=== PATIENT | male | born 1975 | race Caucasian/White ===

== ENCOUNTER 2017-02-24 08:13 | Inpatient (IN) | payer OTHER ==
[2017-02-24 08:45] VITALS: BMI 30.4
--- NOTE | 2017-02-24 11:31 | HP ---
CIWA Score - CIWA Score Nausea/Vomitin Muscle Tremors: 4-Moderate,w/Arms Extend Anxiety: 4-Mod. Anxious/Guarded Agitation: 4-Moderately Restless Paroxysmal Sweats: 3 Orientation: 0-Oriented Tacttile Disturbances: 0-None Auditory Disturbances: 0-None Visual Disturbances: 0-None Headache: 0-None Present CIWA-Ar Total Score: 18 Admission ROS BHS - HPI Chief Complaint: Withdrawal sx. Allergies/Adverse Reactions: Allergies Allergy/AdvReac Type Severity Reaction Status Date / Time No Known Allergies Allergy Verified 02/24/17 10:04 History of Present Illness: 42 y/o man with a long hx. of alcoholism is admitted for detox. Pt. has been in previous detox, denies significant sobriety. Exam Limitations: No Limitations - Ebola screening Have you traveled outside of the country in the last 21 days: No Have you had contact with anyone from an Ebola affected area: No Have you been sick,other than usual withdrawal symptoms: No Do you have a fever: No - Review of Systems Constitutional: Diaphoresis EENT: reports: No Symptoms Reported Respiratory: reports: Cough (COPD) Cardiac: reports: No Symptoms Reported GI: reports: Nausea, Abdominal cramping : reports: No Symptoms Reported Musculoskeletal: reports: Joint Pain Integumentary: reports: Sweating Neuro: reports: Tremors Endocrine: reports: No Symptoms Reported Hematology: reports: No Symptoms Reported Psychiatric: reports: No Sypmtoms Reported Other Systems: Reviewed and Negative Patient History - Patient Medical History Hx Anemia: No Hx Asthma: No Hx Chronic Obstructive Pulmonary Disease (COPD): Yes Hx Cancer: No Hx Cardiac Disorders: No Hx Congestive Heart Failure: No Hx Hypertension: Yes (no meds.) Hx Hypercholesterolemia: No Hx Pacemaker: No HX Cerebrovascular Accident: No Hx Seizures: No Hx Dementia: No Hx Diabetes: No Hx Gastrointestinal Disorders: No Hx Liver Disease: No Hx Genitourinary Disorders: No Hx Sexually Transmitted Disorders: No Hx Renal Disease (ESRD): No Hx Thyroid Disease: No Hx Human Immunodeficiency Virus (HIV): No Hx Hepatitis C: No Hx Depression: Yes (no meds) Hx Suicide Attempt: No Hx Bipolar Disorder: No Hx Schizophrenia: No - Patient Surgical History Past Surgical History: Yes Hx Neurologic Surgery: No Hx Cataract Extraction: No Hx Cardiac Surgery: No Hx Lung Surgery: No Hx Breast Surgery: No Hx Breast Biopsy: No Hx Abdominal Surgery: No Hx Appendectomy: No Hx Cholecystectomy: No Hx Genitourinary Surgery: No Hx Section: No Hx Orthopedic Surgery: No Other Surgical History: dental surgery root canal Anesthesia Reaction: No - PPD History Previous Implant?: Yes Documented Results: Positive w/o proof Implanted On Prior [facility] Admission?: No PPD to be Administered?: No - Smoking Cessation Smoking history: Current every day smoker Have you smoked in the past 12 months: Yes Aproximately how many cigarettes per day: 20 Cigars Per Day: 0 Hx Chewing Tobacco Use: No Initiated information on smoking cessation: Yes 'Breaking Loose' booklet given: 02/24/17 - Substance & Tx. History Hx Alcohol Use: Yes Hx Substance Use: Yes Substance Use Type: Alcohol, Cocaine Hx Substance Use Treatment: Yes (Detox last at [facility] 02/2015) - Substances Abused Alcohol Route: Oral Frequency: Daily Amount used: 1/2 gallon vodka Age of first use: 8 Date of Last Use: 02/23/17 Cocaine Route: Inhalation Frequency: 3-6 times per week Amount used: 1 gram Age of first use: 26 Date of Last Use: 02/23/17 Marijuana/Hashish Route: Smoking Frequency: 1-3 times last 30 days Amount used: 1 joint Age of first use: 14 Date of Last Use: 02/22/17 Alprazolam (Xanax) Route: Oral Frequency: 1-3 times last 30 days Amount used: 2mg Age of first use: 36 Date of Last Use: 02/17/17 Family Disease History - Family Disease History Family Disease History: Other: Grandparent (CVA), Mother (alcoholic) Admission Physical Exam [facility] - Vital Signs Vital Signs: Vital Signs - 24 hr 02/24/17 08:43 Temperature 99.0 F Pulse Rate 90 Respiratory 18 Rate Blood Pressure 150/90 - Physical General Appearance: Yes: Tremorous, Irritable, Sweating, Anxious HEENTM: Yes: Within Normal Limits Respiratory: Yes: Chest Non-Tender, Lungs Clear, Normal Breath Sounds Neck: Yes: Supple Breast: Yes: Breast Exam Deferred Cardiology: Yes: Regular Rhythm, Regular Rate, S1, S2 Abdominal: Yes: Normal Bowel Sounds, Non Tender, Soft Genitourinary: Yes: Within Normal Limits Back: Yes: Within Normal Limits Musculoskeletal: Yes: Within Normal Limits Extremities: Yes: Tremors Neurological: Yes: Fully Oriented, Alert Integumentary: Yes: Diaphoresis Lymphatic: Yes: Within Normal Limits - Diagnostic (1) Alcohol dependence with uncomplicated withdrawal Current Visit: Yes Status: Acute (2) HTN (hypertension) Current Visit: Yes Status: Acute Qualifiers: Hypertension type: essential hypertension Qualified Code(s): I10 - Essential (primary) hypertension Cleared for Admission S - Detox or Rehab [facility] Level of Care: Medically Managed Detox Regimen/Protocol: Librium [facility] Breath Alcohol Content Breath Alcohol Content: 0 Urine Drug Screen - Results Drug Screen Negative: No Urine Drug Screen Results: THC-Marijuana, ALVAREZ-Cocaine
[2017-02-24] MEDS ORDERED: chlordiazePOXIDE HCL 25 MG CAPSULE PO PRN (11:38)
[2017-02-24] MEDS ORDERED: MAGNESIUM HYDROX 2400MG/30ML ORAL SUSPENSION 30 ML CUP PO PRN (11:38)
[2017-02-24] MEDS ORDERED: LOPERAMIDE HCL 2 MG CAPSULE PO PRN (11:38)
[2017-02-24] MEDS ORDERED: P-EPHED 60MG/TRIPROLIDI 2.5MG TABLET PO PRN (11:38)
[2017-02-24] MEDS ORDERED: hydrOXYzine PAMOATE 50 MG CAPSULE (FP) PO PRN (11:38)
[2017-02-24] MEDS ORDERED: MENTHOL/PHENOL 1 EACH UD MM PRN (11:38)
[2017-02-24] MEDS ORDERED: guaiFENesin/D-METHORPHAN HB 10 ML UNIT-DOSE CUPS PO PRN (11:38)
[2017-02-24] MEDS ORDERED: MAG HYDROX/AL HYDROX/SIMETH 30 ML UNIT-DOSE CUP PO PRN (11:38)
[2017-02-24] MEDS ORDERED: MAGNESIUM CITRATE 300 ML BOTTLE PO PRN (11:38)
[2017-02-24] MEDS ORDERED: ALBUTEROL SO4 6.7 GM HFA INHALER IH PRN (11:42)
[2017-02-24] MEDS ORDERED: chlordiazePOXIDE HCL 25 MG CAPSULE PO ONE (12:48)
[2017-02-24] MEDS: NICOTINE 21 MG/24 HOURS TOPICAL PATCH TD SCH (13:28)
[2017-02-24] MEDS: amLODIPine BESYLATE 10 MG TABLET (FP) PO SCH (13:28)
[2017-02-24] MEDS: ACETAMINOPHEN 325 MG TABLET (FP) PO PRN (13:28)
[2017-02-24] MEDS: ACLIDINIUM BROMIDE 400 MCG/INH AERO.POWD IH SCH ×2 (14:39→22:07)
[2017-02-24 16:55] LABS: URINE APPEARANCE TURBID; URINE BILIRUBIN NEGATIVE (NEGATIVE); URINE BLOOD NEGATIVE (NEGATIVE); URINE COLOR AMBER; URINE GLUCOSE (UA) NEGATIVE (NEGATIVE); URINE KETONE NEGATIVE (NEGATIVE); URINE LEUK ESTERASE NEGATIVE (NEGATIVE); URINE NITRITE NEGATIVE (NEGATIVE)
[2017-02-24 16:56] LABS: URINE PROTEIN 1+ (NEGATIVE)
[2017-02-24] MEDS: chlordiazePOXIDE HCL 25 MG CAPSULE PO SCH ×2 (18:50→22:07)
--- NOTE | 2017-02-24 19:13 | CONSULT ---
[facility] Psychiatric Consult - Data Date of interview: 02/24/17 Admission source: [facility] Identifying data: Readmission to [facility] for this [place]-born male seeking detox treatment on for alcohol,cocaine,xanax and marijuana dependence.Patient is ,a father of three,domiciled and employed. Substance Abuse History: Discussed with patient in this interview.[facility] report is confirmed. - Smoking Cessation. Smoking history: Current every day smoker. Have you smoked in the past 12 months: Yes. Aproximately how many cigarettes per day: 20. Cigars Per Day: 0. Hx Chewing Tobacco Use: No. Initiated information on smoking cessation: Yes. 'Breaking Loose' booklet given: . - Substance & Tx. History. Hx Alcohol Use: Yes. Hx Substance Use: Yes. Substance Use Type: Alcohol, Cocaine. Hx Substance Use Treatment: Yes (Detox last at [facility] 02/2015). - Substances Abused. Alcohol. Route: Oral. Frequency: Daily. Amount used: 1/2 gallon vodka. Age of first use: 8. Date of Last Use: 02/23/17. Cocaine. Route: Inhalation. Frequency: 3-6 times per week. Amount used: 1 gram. Age of first use: 26. Date of Last Use: . Marijuana/Hashish. Route: Smoking. Frequency: 1-3 times last 30 days. Amount used: 1 joint. Age of first use: 14. Date of Last Use: 02/22/17. Alprazolam (Xanax). Route: Oral. Frequency: 1-3 times last 30 days. Amount used: 2mg. Age of first use: 36. Date of Last Use: 02/17/17 Medical History: COPD and hypertension. Psychiatric History: No reported history of psychiatric illness.Patient denies history of psychiatric hospitalizations or OPD care.Mr Nino was prescribed seroquel in the past only to address chronic insomnia.No history of suicide attempts. Physical/Sexual Abuse/Trauma History: Patient denies. Additional Comment: Urine Drug Screen Results: THC-Marijuana, ALVAREZ-Cocaine.Noted. Mental Status Exam - Mental Status Exam Alert and Oriented to: Time, Place, Person Cognitive Function: Good Patient Appearance: Well Groomed (tattoo on right arm) Mood: Hopeful, Euthymic Affect: Appropriate, Normal Range Patient Behavior: Fatigued, Appropriate, Cooperative Speech Pattern: Clear (fluent in greenlandic) Voice Loudness: Normal Thought Process: Intact, Goal Oriented Thought Disorder: Not Present Hallucinations: Denies Suicidal Ideation: Denies Homicidal Ideation: Denies Insight/Judgement: Poor Sleep: Poorly, Difficulty falling asleep Appetite: Good Muscle strength/Tone: Normal Gait/Station: Normal Psychiatric Findings - Problem List ([place] 1, 2,3) (1) Alcohol dependence with uncomplicated withdrawal Current Visit: Yes Status: Acute (2) Cannabis dependence Current Visit: Yes Status: Acute (3) Nicotine dependence Current Visit: Yes Status: Acute (4) Cocaine dependence Current Visit: Yes Status: Acute (5) HTN (hypertension) Current Visit: Yes Status: Chronic Qualifiers: Hypertension type: essential hypertension Qualified Code(s): I10 - Essential (primary) hypertension (6) Insomnia Current Visit: Yes Status: Acute - Initial Treatment Plan Initial Treatment Plan: Psychoeducation.Detoxification.Seroquel 100 mg po hs ( patient's request).Side effects/benefits discussed with patient.Observation.
[2017-02-24 20:05] LABS: URINE MUCUS RARE; URINE RBC 2 /hpf (0-3)
[2017-02-24] MEDS: THIAMINE HCL 100 MG TABLET (FP) PO SCH (22:07)
[2017-02-24] MEDS: diphenhydrAMINE HCL 50 MG CAPSULE PO PRN (22:08)
[2017-02-25] MEDS: chlordiazePOXIDE HCL 25 MG CAPSULE PO SCH ×4 (05:57→22:20)
[2017-02-25] MEDS: IBUPROFEN 400 MG TABLET (FP) PO PRN ×2 (05:59→22:23)
[2017-02-25 09:07] LABS: HIV 1 & 2 AB NEGATIVE; HIV 1 AGp24 NEGATIVE
[2017-02-25 11:04] LABS: MCH 30.7 pg (25.7-33.7); MEAN CELL VOLUME 90.4 fl (80-96); MEAN PLT VOLUME 10.5 fl (7.5-11.1); PLATELET COUNT 338 K/MM3 (134-434); RDW 13.9 % (11.9-15.9); WHITE BLOOD COUNT 8.6 K/mm3 (4.0-10.0)
[2017-02-25] MEDS: NICOTINE 21 MG/24 HOURS TOPICAL PATCH TD SCH (11:16)
[2017-02-25] MEDS: PRENATAL VITAMINS W/ FOLIC ACID TABLET (FP) PO SCH (11:16)
[2017-02-25] MEDS: amLODIPine BESYLATE 10 MG TABLET (FP) PO SCH (11:16)
[2017-02-25] MEDS: ACLIDINIUM BROMIDE 400 MCG/INH AERO.POWD IH SCH ×2 (11:16→22:21)
[2017-02-25 11:25] LABS: ALBUMIN 4.5 g/dl (3.4-5.0); ALK PHOS 105 U/L (45-117); ANION GAP 11 (8-16); BILIRUBIN,TOTAL 1.6 mg/dL (0.2-1.0); CO2 24 mmol/L (21-32); GLUCOSE,RANDOM 109 mg/dL (74-106); SGOT/AST 105 U/L (15-37); SGPT/ALT 65 U/L (12-78)
--- NOTE | 2017-02-25 18:46 | EKG ---
Test Reason : Blood Pressure : / mmHG Vent. Rate : 085 BPM Atrial Rate : 085 BPM P-R Int : 156 ms QRS Dur : 092 ms QT Int : 370 ms P-R-T Axes : 067 033 050 degrees QTc Int : 440 ms NORMAL SINUS RHYTHM POSSIBLE LEFT ATRIAL ENLARGEMENT BORDERLINE ECG NO PREVIOUS ECGS AVAILABLE Confirmed by MARY ARIAS MD ([id number]) on 02/25/2017 6:45:50 PM Referred By: Confirmed By:MARY ARIAS MD
[2017-02-25] MEDS ORDERED: ONDANSETRON *ODT* 4 MG TABLET SL PRN (20:21)
--- NOTE | 2017-02-25 20:21 | PN ---
S CIWA - CIWA Score Nausea/Vomitin Muscle Tremors: 4-Moderate,w/Arms Extend Anxiety: 3 Agitation: 1-Slight > Activity Paroxysmal Sweats: No Perspiration Orientation: 0-Oriented Tacttile Disturbances: 3-Moderate Itch/Numb/Burn Auditory Disturbances: 0-None Visual Disturbances: 0-None Headache: 0-None Present CIWA-Ar Total Score: 16 BHS Progress Note (SOAP) Subjective: Interrupted Sleep, Body Aches, Stomach Cramping, Vomiting, Tremors. Objective: PT. A & O X 3, OBSERVED AMBULATING ON UNIT. NO ACUTE DISTRESS. 02/25/17 20:17 Vital Signs Temperature 97.5 F L 02/25/17 18:59 Pulse Rate 80 02/25/17 18:59 Respiratory Rate 18 02/25/17 18:59 Blood Pressure 128/66 02/25/17 18:59 O2 Sat by Pulse Oximetry (%) Laboratory Tests 02/24/17 02/24/17 02/25/17 11:00 15:00 06:10 WBC 8.6 D RBC 4.82 Hgb 14.8 Hct 43.6 MCV 90.4 MCH 30.7 MCHC 34.0 RDW 13.9 Plt Count 338 MPV 10.5 D Sodium Potassium Chloride Carbon Dioxide Anion Gap BUN Creatinine Creat Clearance w eGFR Random Glucose Calcium Total Bilirubin AST ALT Alkaline Phosphatase Total Protein Albumin Urine Color Amanda Urine Appearance Turbid Urine pH 5.0 Ur Specific [place] 1.025 Urine Protein 1+ H Urine Glucose (UA) Negative Urine Ketones Negative Urine Blood Negative Urine Nitrite Negative Urine Bilirubin Negative Urine Urobilinogen 2.0 Ur Leukocyte Esterase Negative Urine RBC 2 Urine WBC None Urine Mucus Rare RPR Titer HIV 1&2 Antibody Screen Negative HIV P24 Antigen Negative 02/25/17 02/25/17 06:10 06:10 WBC RBC Hgb Hct MCV MCH MCHC RDW Plt Count MPV Sodium 138 Potassium 4.0 Chloride 103 Carbon Dioxide 24 Anion Gap 11 BUN 15 D Creatinine 1.0 D Creat Clearance w eGFR > 60 Random Glucose 109 H Calcium 9.0 Total Bilirubin 1.6 H AST 105 H D ALT 65 D Alkaline Phosphatase 105 D Total Protein 8.0 Albumin 4.5 Urine Color Urine Appearance Urine pH Ur Specific [place] Urine Protein Urine Glucose (UA) Urine Ketones Urine Blood Urine Nitrite Urine Bilirubin Urine Urobilinogen Ur Leukocyte Esterase Urine RBC Urine WBC Urine Mucus RPR Titer Nonreactive HIV 1&2 Antibody Screen HIV P24 Antigen LABS NOTED. Assessment: 02/25/17 20:18 WITHDRAWAL SYMPTOMS. Plan: CONTINUE DETOX. PRN ZOFRAN SL FOR VOMITING. REPEAT AST ON 02/27/2017 FOR ELEVATED ADMISSION LEVEL.
[2017-02-25] MEDS: THIAMINE HCL 100 MG TABLET (FP) PO SCH (22:21)
[2017-02-25] MEDS: diphenhydrAMINE HCL 50 MG CAPSULE PO PRN (22:22)
[2017-02-26] MEDS: chlordiazePOXIDE HCL 25 MG CAPSULE PO SCH ×2 (05:45→10:35)
[2017-02-26] MEDS: ACLIDINIUM BROMIDE 400 MCG/INH AERO.POWD IH SCH ×2 (10:34→22:24)
[2017-02-26] MEDS: NICOTINE 21 MG/24 HOURS TOPICAL PATCH TD SCH (10:35)
[2017-02-26] MEDS: amLODIPine BESYLATE 10 MG TABLET (FP) PO SCH (10:35)
[2017-02-26] MEDS: PRENATAL VITAMINS W/ FOLIC ACID TABLET (FP) PO SCH (10:35)
[2017-02-26] MEDS: ACETAMINOPHEN 325 MG TABLET (FP) PO PRN (10:35)
[2017-02-26] MEDS ORDERED: IPRATROPIUM BR 0.02% 0.5 MG/2.5 ML VIAL.NEB. NEB PRN (10:45)
[2017-02-26] MEDS ORDERED: ALBUTEROL SO4 2.5/IPRATROPIUM 0.5 INH SOL 3 ML VIAL.NEB. NEB PRN (10:48)
[2017-02-26] MEDS: NICOTINE POLACRILEX 2 MG GUM BUC PRN ×3 (13:51→22:25)
--- NOTE | 2017-02-26 16:00 | PN ---
S CIWA - CIWA Score Nausea/Vomitin Muscle Tremors: 3 Anxiety: 2 Agitation: 2 Paroxysmal Sweats: 3 Orientation: 0-Oriented Tacttile Disturbances: 1-Very Mild Itch/Numbness Auditory Disturbances: 0-None Visual Disturbances: 0-None Headache: 2-Mild CIWA-Ar Total Score: 16 S Progress Note (SOAP) Subjective: Anxious, feeling drowsy, sweating, interrupted sleep Objective: 02/26/17 15:58 Last Vital Signs Temp Pulse Resp BP Pulse Ox 96.9 F L 86 18 129/84 02/26/17 10:16 02/26/17 10:16 02/26/17 10:16 02/26/17 10:16 Laboratory Tests 02/24/17 02/24/17 02/25/17 11:00 15:00 06:10 WBC 8.6 D RBC 4.82 Hgb 14.8 Hct 43.6 MCV 90.4 MCH 30.7 MCHC 34.0 RDW 13.9 Plt Count 338 MPV 10.5 D Sodium Potassium Chloride Carbon Dioxide Anion Gap BUN Creatinine Creat Clearance w eGFR Random Glucose Calcium Total Bilirubin AST ALT Alkaline Phosphatase Total Protein Albumin Urine Color Amanda Urine Appearance Turbid Urine pH 5.0 Ur Specific [place] 1.025 Urine Protein 1+ H Urine Glucose (UA) Negative Urine Ketones Negative Urine Blood Negative Urine Nitrite Negative Urine Bilirubin Negative Urine Urobilinogen 2.0 Ur Leukocyte Esterase Negative Urine RBC 2 Urine WBC None Urine Mucus Rare RPR Titer HIV 1&2 Antibody Screen Negative HIV P24 Antigen Negative 02/25/17 02/25/17 06:10 06:10 WBC RBC Hgb Hct MCV MCH MCHC RDW Plt Count MPV Sodium 138 Potassium 4.0 Chloride 103 Carbon Dioxide 24 Anion Gap 11 BUN 15 D Creatinine 1.0 D Creat Clearance w eGFR > 60 Random Glucose 109 H Calcium 9.0 Total Bilirubin 1.6 H AST 105 H D ALT 65 D Alkaline Phosphatase 105 D Total Protein 8.0 Albumin 4.5 Urine Color Urine Appearance Urine pH Ur Specific [place] Urine Protein Urine Glucose (UA) Urine Ketones Urine Blood Urine Nitrite Urine Bilirubin Urine Urobilinogen Ur Leukocyte Esterase Urine RBC Urine WBC Urine Mucus RPR Titer Nonreactive HIV 1&2 Antibody Screen HIV P24 Antigen Labs noted: abnormal UA Assessment: 02/26/17 15:59 Withdrawal symptoms 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
[2017-02-26] MEDS: chlordiazePOXIDE 5 MG CAPSULE PO SCH ×2 (17:05→22:24)
[2017-02-26] MEDS: IBUPROFEN 600 MG TABLET (FP) PO PRN (17:09)
[2017-02-26] MEDS: diphenhydrAMINE HCL 50 MG CAPSULE PO PRN (22:23)
[2017-02-26] MEDS: THIAMINE HCL 100 MG TABLET (FP) PO SCH (22:23)
[2017-02-27] MEDS: chlordiazePOXIDE 5 MG CAPSULE PO SCH ×2 (05:54→10:23)
[2017-02-27] MEDS: PRENATAL VITAMINS W/ FOLIC ACID TABLET (FP) PO SCH (10:23)
[2017-02-27] MEDS: amLODIPine BESYLATE 10 MG TABLET (FP) PO SCH (10:23)
[2017-02-27] MEDS: ACLIDINIUM BROMIDE 400 MCG/INH AERO.POWD IH SCH ×2 (10:24→22:14)
--- NOTE | 2017-02-27 10:44 | PN ---
BHS Progress Note (SOAP) Subjective: Sweating,interrupted sleep,restless Objective: 02/27/17 10:43 Vital Signs - 8 hr 02/27/17 02/27/17 06:25 09:38 Temperature 96.1 F L 97.3 F L Pulse Rate 75 87 Respiratory 18 18 Rate Blood Pressure 132/91 140/90 Laboratory Last Values WBC 8.6 K/mm3 (4.0-10.0) D 02/25/17 06:10 RBC 4.82 M/mm3 (4.00-5.60) 02/25/17 06:10 Hgb 14.8 GM/dL (11.7-16.9) 02/25/17 06:10 Hct 43.6 % (35.4-49) 02/25/17 06:10 MCV 90.4 fl (80-96) 02/25/17 06:10 MCH 30.7 pg (25.7-33.7) 02/25/17 06:10 MCHC 34.0 g/dl (32.0-35.9) 02/25/17 06:10 RDW 13.9 % (11.9-15.9) 02/25/17 06:10 Plt Count 338 K/MM3 (134-434) 02/25/17 06:10 MPV 10.5 fl (7.5-11.1) D 02/25/17 06:10 Sodium 138 mmol/L (136-145) 02/25/17 06:10 Potassium 4.0 mmol/L (3.5-5.1) 02/25/17 06:10 Chloride 103 mmol/L (98-107) 02/25/17 06:10 Carbon Dioxide 24 mmol/L (21-32) 02/25/17 06:10 Anion Gap 11 (8-16) 02/25/17 06:10 BUN 15 mg/dL (7-18) D 02/25/17 06:10 Creatinine 1.0 mg/dL (0.7-1.3) D 02/25/17 06:10 Creat Clearance w eGFR > 60 (>60) 02/25/17 06:10 Random Glucose 109 mg/dL (74-106) H 02/25/17 06:10 Calcium 9.0 mg/dL (8.5-10.1) 02/25/17 06:10 Total Bilirubin 1.6 mg/dL (0.2-1.0) H 02/25/17 06:10 AST 105 U/L (15-37) H D 02/25/17 06:10 ALT 65 U/L (12-78) D 02/25/17 06:10 Alkaline Phosphatase 105 U/L (45-117) D 02/25/17 06:10 Total Protein 8.0 g/dl (6.4-8.2) 02/25/17 06:10 Albumin 4.5 g/dl (3.4-5.0) 02/25/17 06:10 Urine Color Amanda 02/24/17 15:00 Urine Appearance Turbid 02/24/17 15:00 Urine pH 5.0 (5.0-8.0) 02/24/17 15:00 Ur Specific [place] 1.025 (1.005-1.025) 02/24/17 15:00 Urine Protein 1+ (NEGATIVE) H 02/24/17 15:00 Urine Glucose (UA) Negative (NEGATIVE) 02/24/17 15:00 Urine Ketones Negative (NEGATIVE) 02/24/17 15:00 Urine Blood Negative (NEGATIVE) 02/24/17 15:00 Urine Nitrite Negative (NEGATIVE) 02/24/17 15:00 Urine Bilirubin Negative (NEGATIVE) 02/24/17 15:00 Urine Urobilinogen 2.0 mg/dL (0.2-1.0) 02/24/17 15:00 Ur Leukocyte Esterase Negative (NEGATIVE) 02/24/17 15:00 Urine RBC 2 /hpf (0-3) 02/24/17 15:00 Urine WBC None /hpf (3-5) 02/24/17 15:00 Urine Mucus Rare 02/24/17 15:00 RPR Titer Nonreactive (NONREACTIVE) 02/25/17 06:10 HIV 1&2 Antibody Screen Negative 02/24/17 11:00 HIV P24 Antigen Negative 02/24/17 11:00 labs noted Assessment: 02/27/17 10:43 Withdrawal sx. Plan: Continue detox
[2017-02-27] MEDS: NICOTINE 21 MG/24 HOURS TOPICAL PATCH TD SCH ×2 (11:00→12:29)
[2017-02-27] MEDS: NICOTINE POLACRILEX 2 MG GUM BUC PRN ×2 (12:31→17:13)
[2017-02-27] MEDS: chlordiazePOXIDE HCL 10 MG CAPSULE PO SCH ×2 (17:11→22:14)
[2017-02-27] MEDS: IBUPROFEN 600 MG TABLET (FP) PO PRN ×2 (17:13→22:16)
[2017-02-27 21:08] LABS: URINE APPEARANCE CLEAR; URINE BILIRUBIN NEGATIVE (NEGATIVE); URINE BLOOD NEGATIVE (NEGATIVE); URINE COLOR LTYELLOW; URINE GLUCOSE (UA) NEGATIVE (NEGATIVE); URINE KETONE NEGATIVE (NEGATIVE); URINE LEUK ESTERASE NEGATIVE (NEGATIVE); URINE NITRITE NEGATIVE (NEGATIVE); URINE PROTEIN NEGATIVE (NEGATIVE); URINE UROBILINOGEN NEGATIVE mg/dL (0.2-1.0)
[2017-02-27] MEDS: diphenhydrAMINE HCL 50 MG CAPSULE PO PRN (22:14)
[2017-02-27] MEDS: THIAMINE HCL 100 MG TABLET (FP) PO SCH (22:14)
[2017-02-28] MEDS: chlordiazePOXIDE HCL 10 MG CAPSULE PO SCH ×2 (05:58→11:30)
[2017-02-28] MEDS: amLODIPine BESYLATE 10 MG TABLET (FP) PO SCH (10:22)
[2017-02-28] MEDS: PRENATAL VITAMINS W/ FOLIC ACID TABLET (FP) PO SCH (10:22)
[2017-02-28] MEDS: ACLIDINIUM BROMIDE 400 MCG/INH AERO.POWD IH SCH (10:23)
[2017-02-28] MEDS: NICOTINE 21 MG/24 HOURS TOPICAL PATCH TD SCH (10:23)
--- NOTE | 2017-02-28 11:02 | DS ---
[facility] Detox Discharge Summary Admission Date: 02/24/17 Discharge Date: 02/28/17 - History Present History: Alcohol Dependence, Cannabis Dependence Additional Comments: DETOX COMPLETED, ALERT O X 3. NAD. FOLLOW UP WITH PCP DR MERCADO AT [place] FOR [facility]/ [place], [place] NEEDED.. Pertinent Past History: COPD HTN - Physical Exam Results Vital Signs: Vital Signs Temperature 97.2 F L 02/28/17 09:33 Pulse Rate 90 02/28/17 09:33 Respiratory Rate 20 02/28/17 09:33 Blood Pressure 147/95 02/28/17 09:33 O2 Sat by Pulse Oximetry (%) Pertinent Admission Physical Exam Findings: WITHDRAWAL SX Laboratory Last Values WBC 8.6 K/mm3 (4.0-10.0) D 02/25/17 06:10 RBC 4.82 M/mm3 (4.00-5.60) 02/25/17 06:10 Hgb 14.8 GM/dL (11.7-16.9) 02/25/17 06:10 Hct 43.6 % (35.4-49) 02/25/17 06:10 MCV 90.4 fl (80-96) 02/25/17 06:10 MCH 30.7 pg (25.7-33.7) 02/25/17 06:10 MCHC 34.0 g/dl (32.0-35.9) 02/25/17 06:10 RDW 13.9 % (11.9-15.9) 02/25/17 06:10 Plt Count 338 K/MM3 (134-434) 02/25/17 06:10 MPV 10.5 fl (7.5-11.1) D 02/25/17 06:10 Sodium 138 mmol/L (136-145) 02/25/17 06:10 Potassium 4.0 mmol/L (3.5-5.1) 02/25/17 06:10 Chloride 103 mmol/L (98-107) 02/25/17 06:10 Carbon Dioxide 24 mmol/L (21-32) 02/25/17 06:10 Anion Gap 11 (8-16) 02/25/17 06:10 BUN 15 mg/dL (7-18) D 02/25/17 06:10 Creatinine 1.0 mg/dL (0.7-1.3) D 02/25/17 06:10 Creat Clearance w eGFR > 60 (>60) 02/25/17 06:10 Random Glucose 109 mg/dL (74-106) H 02/25/17 06:10 Calcium 9.0 mg/dL (8.5-10.1) 02/25/17 06:10 Total Bilirubin 1.6 mg/dL (0.2-1.0) H 02/25/17 06:10 AST 52 U/L (15-37) H D 02/27/17 09:30 ALT 65 U/L (12-78) D 02/25/17 06:10 Alkaline Phosphatase 105 U/L (45-117) D 02/25/17 06:10 Total Protein 8.0 g/dl (6.4-8.2) 02/25/17 06:10 Albumin 4.5 g/dl (3.4-5.0) 02/25/17 06:10 Urine Color L[place] 02/27/17 13:00 Urine Appearance Clear 02/27/17 13:00 Urine pH 5.0 (5.0-8.0) 02/27/17 13:00 Ur Specific [place] 1.010 (1.005-1.025) 02/27/17 13:00 Urine Protein Negative (NEGATIVE) 02/27/17 13:00 Urine Glucose (UA) Negative (NEGATIVE) 02/27/17 13:00 Urine Ketones Negative (NEGATIVE) 02/27/17 13:00 Urine Blood Negative (NEGATIVE) 02/27/17 13:00 Urine Nitrite Negative (NEGATIVE) 02/27/17 13:00 Urine Bilirubin Negative (NEGATIVE) 02/27/17 13:00 Urine Urobilinogen Negative mg/dL (0.2-1.0) 02/27/17 13:00 Ur Leukocyte Esterase Negative (NEGATIVE) 02/27/17 13:00 Urine RBC 2 /hpf (0-3) 02/24/17 15:00 Urine WBC None /hpf (3-5) 02/24/17 15:00 Urine Mucus Rare 02/24/17 15:00 RPR Titer Nonreactive (NONREACTIVE) 02/25/17 06:10 HIV 1&2 Antibody Screen Negative 02/24/17 11:00 HIV P24 Antigen Negative 02/24/17 11:00 - Treatment Hospital Course: Detox Protocol Followed, Detoxed Safely, Responded well, Discharged Condition Good - Medication Discharge Medications: Ambulatory Orders Quetiapine Fumarate [Seroquel] 100 mg PO HS #30 tablet 02/25/17 - Diagnosis (1) Alcohol dependence with uncomplicated withdrawal Current Visit: Yes Status: Acute (2) Cannabis dependence Current Visit: Yes Status: Acute (3) Insomnia Current Visit: Yes Status: Acute (4) HTN (hypertension) Current Visit: Yes Status: Chronic Qualifiers: Hypertension type: essential hypertension Qualified Code(s): I10 - Essential (primary) hypertension (5) History of COPD Current Visit: Yes Status: Chronic (6) Cocaine dependence Current Visit: Yes Status: Acute Qualifiers: Substance use status: uncomplicated Qualified Code(s): F14.20 - Cocaine dependence, uncomplicated (7) Nicotine dependence Current Visit: Yes Status: Acute Qualifiers: Nicotine product type: cigarettes Substance use status: in withdrawal Qualified Code(s): F17.213 - Nicotine dependence, cigarettes, with withdrawal - AMA Did Patient Leave Against Medical Advice: No
[2017-02-28 17:27] VITALS: BP 142/89; PULSE 84; TEMP 99.3
== END 2017-02-28 17:32 | disposition other institution (70) | DRG 897 ==
LOC: YASAS 08:13 → Y3N 12:45
PROVIDERS: ADMIT Internal Medicine; ATTEND Internal Medicine
PROC: HZ2ZZZZ Detoxification Services for Substance Abuse Treatment (ICD-10-PCS; principal; 2017-02-28)
DX: F10.20 Alcohol dependence, uncomplicated (principal); F14.20 Cocaine dependence, uncomplicated; F12.20 Cannabis dependence, uncomplicated; F17.210 Nicotine dependence, cigarettes, uncomplicated; G47.00 Insomnia, unspecified; I10 Essential (primary) hypertension; J44.9 Chronic obstructive pulmonary disease, unspecified
CPT/HCPCS: 36415; 71020-TC; 80053; 81003; 81015; 84450; 85027; 86593; 87389; 93005; 93010; 94640

== ENCOUNTER 2017-02-28 18:19 | Inpatient (IN) | payer OTHER ==
[2017-02-28] MEDS ORDERED: P-EPHED 60MG/TRIPROLIDI 2.5MG TABLET PO PRN (22:04)
[2017-02-28] MEDS ORDERED: MAGNESIUM HYDROX 2400MG/30ML ORAL SUSPENSION 30 ML CUP PO PRN (22:04)
[2017-02-28] MEDS ORDERED: MAG HYDROX/AL HYDROX/SIMETH 30 ML UNIT-DOSE CUP PO PRN (22:04)
[2017-02-28] MEDS ORDERED: guaiFENesin/D-METHORPHAN HB 10 ML UNIT-DOSE CUPS PO PRN (22:04)
[2017-02-28] MEDS ORDERED: MAGNESIUM CITRATE 300 ML BOTTLE PO PRN (22:04)
[2017-02-28] MEDS ORDERED: LOPERAMIDE HCL 2 MG CAPSULE PO PRN (22:04)
[2017-02-28] MEDS ORDERED: MENTHOL/PHENOL 1 EACH UD MM PRN (22:04)
--- NOTE | 2017-02-28 22:06 | HP ---
[facility] Rehab Assess/Revision - Admission History Admitted to Rehab from: [facility] Date of Admission to Rehab: 02/28/17 - Findings Detox History & Physical reviewed: Yes Concur with findings: Yes Comments/Additional Findings: TRANSFERRED FROM DETOX TO REHAB ADMISSION PER PROTOCOL
[2017-02-28] MEDS: QUEtiapine FUMARATE 100 MG TABLET (FP) PO SCH (23:04)
[2017-03-01] MEDS: PRENATAL VITAMINS W/ FOLIC ACID TABLET (FP) PO SCH (10:25)
[2017-03-01] MEDS: NICOTINE 14 MG/24 HOURS TOPICAL PATCH TD PRN (10:26)
[2017-03-01] MEDS: IBUPROFEN 400 MG TABLET (FP) PO PRN ×2 (10:27→19:57)
[2017-03-01] MEDS: NICOTINE POLACRILEX 2 MG GUM BUC PRN (10:28)
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
[2017-03-01] MEDS: hydrOXYzine PAMOATE 50 MG CAPSULE (FP) PO PRN ×2 (13:03→19:57)
[2017-03-01] MEDS: THIAMINE HCL 100 MG TABLET (FP) PO SCH (21:58)
[2017-03-01] MEDS: QUEtiapine FUMARATE 100 MG TABLET (FP) PO SCH (21:58)
[2017-03-01] MEDS ORDERED: ALBUTEROL SO4 6.7 GM HFA INHALER IH PRN (23:47)
[2017-03-01] MEDS ORDERED: ALBUTEROL SO4 2.5/IPRATROPIUM 0.5 INH SOL 3 ML VIAL.NEB. NEB PRN (23:48)
[2017-03-02] MEDS: PRENATAL VITAMINS W/ FOLIC ACID TABLET (FP) PO SCH (10:26)
[2017-03-02] MEDS: IBUPROFEN 400 MG TABLET (FP) PO PRN ×2 (10:26→21:29)
[2017-03-02] MEDS: hydrOXYzine PAMOATE 50 MG CAPSULE (FP) PO PRN ×3 (10:27→21:29)
[2017-03-02] MEDS: NICOTINE 14 MG/24 HOURS TOPICAL PATCH TD PRN (10:27)
[2017-03-02] MEDS: QUEtiapine FUMARATE 100 MG TABLET (FP) PO SCH (21:29)
[2017-03-02] MEDS: THIAMINE HCL 100 MG TABLET (FP) PO SCH (21:29)
[2017-03-03] MEDS: NICOTINE POLACRILEX 2 MG GUM BUC PRN ×3 (06:38→14:26)
[2017-03-03] MEDS: hydrOXYzine PAMOATE 50 MG CAPSULE (FP) PO PRN ×3 (06:38→21:29)
[2017-03-03] MEDS: NICOTINE 14 MG/24 HOURS TOPICAL PATCH TD PRN (10:27)
[2017-03-03] MEDS: PRENATAL VITAMINS W/ FOLIC ACID TABLET (FP) PO SCH (10:27)
[2017-03-03] MEDS: IBUPROFEN 400 MG TABLET (FP) PO PRN ×2 (10:30→21:29)
[2017-03-03] MEDS: QUEtiapine FUMARATE 100 MG TABLET (FP) PO SCH (21:28)
[2017-03-03] MEDS: THIAMINE HCL 100 MG TABLET (FP) PO SCH (21:28)
[2017-03-04] MEDS: PRENATAL VITAMINS W/ FOLIC ACID TABLET (FP) PO SCH (09:55)
[2017-03-04] MEDS: NICOTINE 14 MG/24 HOURS TOPICAL PATCH TD PRN (09:56)
[2017-03-04] MEDS: hydrOXYzine PAMOATE 50 MG CAPSULE (FP) PO PRN ×2 (09:56→22:09)
[2017-03-04] MEDS: QUEtiapine FUMARATE 100 MG TABLET (FP) PO SCH (22:06)
[2017-03-04] MEDS: diphenhydrAMINE HCL 50 MG CAPSULE PO PRN (22:07)
[2017-03-04] MEDS: THIAMINE HCL 100 MG TABLET (FP) PO SCH (22:07)
[2017-03-04] MEDS: IBUPROFEN 400 MG TABLET (FP) PO PRN (22:09)
[2017-03-05] MEDS: PRENATAL VITAMINS W/ FOLIC ACID TABLET (FP) PO SCH (10:13)
[2017-03-05] MEDS: hydrOXYzine PAMOATE 50 MG CAPSULE (FP) PO PRN ×3 (10:14→21:38)
[2017-03-05] MEDS: IBUPROFEN 400 MG TABLET (FP) PO PRN (10:14)
[2017-03-05] MEDS: NICOTINE 14 MG/24 HOURS TOPICAL PATCH TD PRN (10:15)
[2017-03-05] MEDS: NICOTINE POLACRILEX 2 MG GUM BUC PRN (10:16)
[2017-03-05] MEDS: THIAMINE HCL 100 MG TABLET (FP) PO SCH (21:38)
[2017-03-05] MEDS: QUEtiapine FUMARATE 100 MG TABLET (FP) PO SCH (21:38)
[2017-03-05] MEDS: ACETAMINOPHEN 325 MG TABLET (FP) PO PRN (21:38)
[2017-03-06] MEDS: NICOTINE 14 MG/24 HOURS TOPICAL PATCH TD PRN (10:43)
[2017-03-06] MEDS: PRENATAL VITAMINS W/ FOLIC ACID TABLET (FP) PO SCH (10:43)
[2017-03-06] MEDS: ACETAMINOPHEN 325 MG TABLET (FP) PO PRN (10:44)
[2017-03-06] MEDS: hydrOXYzine PAMOATE 50 MG CAPSULE (FP) PO PRN ×2 (10:45→21:45)
[2017-03-06] MEDS: IBUPROFEN 400 MG TABLET (FP) PO PRN ×2 (14:07→21:45)
[2017-03-06] MEDS: NICOTINE POLACRILEX 2 MG GUM BUC PRN (14:07)
[2017-03-06] MEDS: THIAMINE HCL 100 MG TABLET (FP) PO SCH (21:44)
[2017-03-06] MEDS: QUEtiapine FUMARATE 100 MG TABLET (FP) PO SCH (21:44)
[2017-03-07] MEDS: hydrOXYzine PAMOATE 50 MG CAPSULE (FP) PO PRN ×3 (03:47→21:34)
[2017-03-07] MEDS: PRENATAL VITAMINS W/ FOLIC ACID TABLET (FP) PO SCH (10:36)
[2017-03-07] MEDS: IBUPROFEN 400 MG TABLET (FP) PO PRN ×2 (10:37→21:34)
[2017-03-07] MEDS: NICOTINE 14 MG/24 HOURS TOPICAL PATCH TD PRN (10:39)
[2017-03-07] MEDS: NICOTINE POLACRILEX 2 MG GUM BUC PRN (10:40)
[2017-03-07] MEDS: QUEtiapine FUMARATE 100 MG TABLET (FP) PO SCH (21:34)
[2017-03-07] MEDS: THIAMINE HCL 100 MG TABLET (FP) PO SCH (21:34)
[2017-03-08] MEDS: PRENATAL VITAMINS W/ FOLIC ACID TABLET (FP) PO SCH (10:10)
[2017-03-08] MEDS: IBUPROFEN 400 MG TABLET (FP) PO PRN ×2 (10:11→21:43)
[2017-03-08] MEDS: hydrOXYzine PAMOATE 50 MG CAPSULE (FP) PO PRN ×3 (10:11→21:43)
[2017-03-08] MEDS: NICOTINE POLACRILEX 2 MG GUM BUC PRN (10:12)
[2017-03-08] MEDS: NICOTINE 14 MG/24 HOURS TOPICAL PATCH TD PRN (10:12)
[2017-03-08] MEDS: ACETAMINOPHEN 325 MG TABLET (FP) PO PRN (14:49)
[2017-03-08] MEDS: QUEtiapine FUMARATE 100 MG TABLET (FP) PO SCH (21:43)
[2017-03-08] MEDS: THIAMINE HCL 100 MG TABLET (FP) PO SCH (21:43)
[2017-03-09] MEDS: IBUPROFEN 400 MG TABLET (FP) PO PRN ×2 (10:24→22:08)
[2017-03-09] MEDS: hydrOXYzine PAMOATE 50 MG CAPSULE (FP) PO PRN (10:24)
[2017-03-09] MEDS: PRENATAL VITAMINS W/ FOLIC ACID TABLET (FP) PO SCH (10:24)
[2017-03-09] MEDS: NICOTINE 14 MG/24 HOURS TOPICAL PATCH TD PRN (10:25)
[2017-03-09] MEDS: NICOTINE POLACRILEX 2 MG GUM BUC PRN (10:27)
[2017-03-09] MEDS: THIAMINE HCL 100 MG TABLET (FP) PO SCH (22:06)
[2017-03-09] MEDS: QUEtiapine FUMARATE 100 MG TABLET (FP) PO SCH (22:07)
[2017-03-09] MEDS: diphenhydrAMINE HCL 50 MG CAPSULE PO PRN (22:08)
[2017-03-10] MEDS: PRENATAL VITAMINS W/ FOLIC ACID TABLET (FP) PO SCH (10:27)
[2017-03-10] MEDS: IBUPROFEN 400 MG TABLET (FP) PO PRN ×2 (10:30→16:52)
[2017-03-10] MEDS: NICOTINE 14 MG/24 HOURS TOPICAL PATCH TD PRN (10:31)
[2017-03-10] MEDS: hydrOXYzine PAMOATE 50 MG CAPSULE (FP) PO PRN ×3 (10:31→21:35)
[2017-03-10] MEDS: NICOTINE POLACRILEX 2 MG GUM BUC PRN (10:31)
[2017-03-10] MEDS: THIAMINE HCL 100 MG TABLET (FP) PO SCH (21:35)
[2017-03-10] MEDS: ACETAMINOPHEN 325 MG TABLET (FP) PO PRN (21:35)
[2017-03-10] MEDS: QUEtiapine FUMARATE 100 MG TABLET (FP) PO SCH (21:35)
[2017-03-11] MEDS: NICOTINE 14 MG/24 HOURS TOPICAL PATCH TD PRN (10:17)
[2017-03-11] MEDS: NICOTINE POLACRILEX 2 MG GUM BUC PRN (10:17)
[2017-03-11] MEDS: IBUPROFEN 400 MG TABLET (FP) PO PRN ×2 (10:17→21:32)
[2017-03-11] MEDS: hydrOXYzine PAMOATE 50 MG CAPSULE (FP) PO PRN ×3 (10:18→21:32)
[2017-03-11] MEDS: PRENATAL VITAMINS W/ FOLIC ACID TABLET (FP) PO SCH (10:18)
[2017-03-11] MEDS: ACETAMINOPHEN 325 MG TABLET (FP) PO PRN (15:00)
[2017-03-11] MEDS: QUEtiapine FUMARATE 100 MG TABLET (FP) PO SCH (21:31)
[2017-03-11] MEDS: THIAMINE HCL 100 MG TABLET (FP) PO SCH (21:32)
[2017-03-12] MEDS: hydrOXYzine PAMOATE 50 MG CAPSULE (FP) PO PRN ×3 (10:19→21:24)
[2017-03-12] MEDS: PRENATAL VITAMINS W/ FOLIC ACID TABLET (FP) PO SCH (10:19)
[2017-03-12] MEDS: IBUPROFEN 400 MG TABLET (FP) PO PRN ×2 (10:19→21:24)
[2017-03-12] MEDS: NICOTINE 14 MG/24 HOURS TOPICAL PATCH TD PRN (10:34)
[2017-03-12] MEDS: NICOTINE POLACRILEX 2 MG GUM BUC PRN ×2 (10:34→14:53)
[2017-03-12] MEDS: ACETAMINOPHEN 325 MG TABLET (FP) PO PRN (14:52)
[2017-03-12] MEDS: QUEtiapine FUMARATE 100 MG TABLET (FP) PO SCH (21:23)
[2017-03-12] MEDS: THIAMINE HCL 100 MG TABLET (FP) PO SCH (21:23)
[2017-03-13] MEDS: NICOTINE 14 MG/24 HOURS TOPICAL PATCH TD PRN (10:14)
[2017-03-13] MEDS: PRENATAL VITAMINS W/ FOLIC ACID TABLET (FP) PO SCH (10:14)
[2017-03-13] MEDS: NICOTINE POLACRILEX 2 MG GUM BUC PRN (10:16)
[2017-03-13] MEDS: hydrOXYzine PAMOATE 50 MG CAPSULE (FP) PO PRN ×3 (10:16→21:45)
[2017-03-13] MEDS: IBUPROFEN 400 MG TABLET (FP) PO PRN ×2 (10:16→21:45)
[2017-03-13] MEDS: ACETAMINOPHEN 325 MG TABLET (FP) PO PRN (15:54)
[2017-03-13] MEDS: THIAMINE HCL 100 MG TABLET (FP) PO SCH (21:44)
[2017-03-13] MEDS: QUEtiapine FUMARATE 100 MG TABLET (FP) PO SCH (21:44)
[2017-03-14] MEDS: IBUPROFEN 400 MG TABLET (FP) PO PRN (06:17)
[2017-03-14] MEDS: hydrOXYzine PAMOATE 50 MG CAPSULE (FP) PO PRN ×2 (06:17→10:28)
[2017-03-14 06:44] VITALS: BP 128/86; PULSE 101; TEMP 98
[2017-03-14] MEDS: PRENATAL VITAMINS W/ FOLIC ACID TABLET (FP) PO SCH (10:27)
[2017-03-14] MEDS: ACETAMINOPHEN 325 MG TABLET (FP) PO PRN (10:28)
--- NOTE | 2017-03-14 10:42 | PN ---
Psychiatric Progress Note Vital Signs: Vital Signs Period Temp Pulse Resp BP Sys/Zhao Pulse Ox Last 24 Hr 98.0 F 101 18-18 128/86 Date of Session: 03/14/17 Chief Complaint:: discharge visit HPI: Patient has addressed alcohol, cocaine, cannabis, nicotine dependence comorbid alcohol induced anxiety disorder and insomnia. ROS: COPD and hypertension medically managed. Current Medications: Active Medications Generic Name Dose Route Start Last Admin Trade Name Freq PRN Reason Stop Dose Admin Acetaminophen 650 mg 02/28/17 22:04 03/13/17 15:54 Tylenol - PO 650 mg Q4H PRN Administration FEVER OR PAIN Al Hydroxide/Mg Hydroxide 30 ml 02/28/17 22:04 Mylanta Oral Suspension - PO Q6H PRN DYSPEPSIA Albuterol Sulfate 2 puff 03/01/17 23:47 Ventolin Hfa Inhaler - IH Q4H PRN SHORT OF BREATH/WHEEZING Diphenhydramine HCl 50 mg 02/28/17 22:04 03/09/17 22:08 Benadryl - PO 50 mg HSMR1 PRN Administration FOR ITCHING Eucalyptus/Menthol/Phenol/Sorbitol 1 each 02/28/17 22:04 Cepastat Lozenge - MM Q4H PRN SORE THROAT Guaifenesin 10 ml 02/28/17 22:04 Robitussin Dm - PO Q6H PRN COUGH Hydroxyzine Pamoate 50 mg 03/01/17 11:03 03/14/17 06:17 Vistaril - PO 50 mg Q4H PRN Administration ANXIETY Ibuprofen 400 mg 02/28/17 22:04 03/14/17 06:17 Motrin - PO 400 mg Q6H PRN Administration PAIN Loperamide HCl 4 mg 02/28/17 22:04 Imodium - PO Q6H PRN DIARRHEA Magnesium Hydroxide 30 ml 02/28/17 22:04 Milk Of Magnesia - PO DAILY PRN CONSTIPATION Nicotine 14 mg 02/28/17 22:04 03/13/17 10:14 Nicoderm Patch - TD 14 mg DAILY PRN Administration WITHDRAWAL(CONT SUBST) Nicotine Polacrilex 2 mg 02/28/17 22:04 03/13/17 10:16 Nicorette Gum - BUC 2 mg Q2H PRN Administration NICOTINE REPLACEMENT RX Multivit/Folic Acid/Iron 1 tab 03/01/17 10:00 03/13/17 10:14 Vitamins (Sjr) - PO 1 tab DAILY LINETTE Administration Pseudoephedrine/Triprolidine 1 combo 02/28/17 22:04 Actifed - PO TID PRN NASAL CONGESTION Quetiapine Fumarate 100 mg 02/28/17 22:30 03/13/17 21:44 Seroquel - PO 100 mg HS LINETTE Administration Thiamine HCl 100 mg 03/01/17 22:00 03/13/17 21:44 Vitamin B1 - PO 100 mg HS LINETTE Administration Current Side Effect: No Lab tests ordered: No Lab tests reviewed: Yes Provider note:: Patient has completed today his treatment and met his goals, will continue to address his issues at [facility] outpatient treatment [facility]. He was educated on his addiction, imlications and consequences on his physical and mantla health, the importance to maintain sobriety, educated on amoking cessation. Medications Seroquel and Buspar well tolerated , patient reports he is less anxious, mood is stable and sleep improved. Scripts provided for 30 days. Supportive psychtherapy provided, patient is stable for discharge today. Total face to face time:: 35 Mental Status Exam - Mental Status Exam Alert and Oriented to: Time, Place, Person Cognitive Function: Good Patient Appearance: Well Groomed Mood: Hopeful Affect: Appropriate, Mood Congruent Patient Behavior: Appropriate, Cooperative Speech Pattern: Clear, Appropriate Voice Loudness: Normal Thought Process: Intact, Goal Oriented Thought Disorder: Not Present Hallucinations: Denies Suicidal Ideation: Denies Homicidal Ideation: Denies Insight/Judgement: Fair Sleep: Fair Appetite: Fair Muscle strength/Tone: Normal Gait/Station: Normal Psychiatric Treatment Plan - Problem List (1) Cannabis dependence Current Visit: No (2) Cocaine dependence Current Visit: No Qualifiers: Substance use status: uncomplicated Qualified Code(s): F14.20 - Cocaine dependence, uncomplicated (3) Insomnia Current Visit: No (4) Nicotine dependence Current Visit: No Qualifiers: Nicotine product type: cigarettes Substance use status: in withdrawal Qualified Code(s): F17.213 - Nicotine dependence, cigarettes, with withdrawal (5) Alcohol dependence Current Visit: No (6) Alcohol-induced anxiety disorder Current Visit: No
== END 2017-03-14 10:58 | disposition home or self-care (01) | DRG 895 ==
LOC: YASAS 18:19 → Y5N 18:20
PROVIDERS: ADMIT Psychiatry & Neurology Psychiatry; ATTEND Psychiatry & Neurology Psychiatry
PROC: HZ42ZZZ Group Counseling for Substance Abuse Treatment, Cognitive-Behavioral (ICD-10-PCS; principal; 2017-02-28)
DX: F10.280 Alcohol dependence with alcohol-induced anxiety disorder (principal); F14.20 Cocaine dependence, uncomplicated; F12.20 Cannabis dependence, uncomplicated; F17.213 Nicotine dependence, cigarettes, with withdrawal; G47.00 Insomnia, unspecified
CPT/HCPCS: 94640

== ENCOUNTER 2018-01-17 15:44 | Inpatient (IN) | payer OTHER ==
[2018-01-17 17:33] VITALS: BMI 34.0
[2018-01-17] MEDS ORDERED: MAGNESIUM CITRATE 300 ML BOTTLE PO PRN (17:43)
[2018-01-17] MEDS ORDERED: NICOTINE POLACRILEX 2 MG GUM BC PRN (17:43)
[2018-01-17] MEDS ORDERED: MAG HYDROX/AL HYDROX/SIMETH 30 ML UNIT-DOSE CUP PO PRN (17:43)
[2018-01-17] MEDS ORDERED: MENTHOL/PHENOL 1 EACH UD MM PRN (17:43)
[2018-01-17] MEDS ORDERED: hydrOXYzine PAMOATE 50 MG CAPSULE (FP) PO PRN (17:43)
[2018-01-17] MEDS ORDERED: ACETAMINOPHEN 325 MG TABLET (FP) PO PRN (17:43)
[2018-01-17] MEDS ORDERED: guaiFENesin/D-METHORPHAN HB 10 ML UNIT-DOSE CUPS PO PRN (17:43)
[2018-01-17] MEDS ORDERED: MAGNESIUM HYDROX 2400MG/30ML ORAL SUSPENSION 30 ML CUP PO PRN (17:43)
[2018-01-17] MEDS ORDERED: LOPERAMIDE HCL 2 MG CAPSULE PO PRN (17:43)
[2018-01-17] MEDS ORDERED: P-EPHED 60MG/TRIPROLIDI 2.5MG TABLET PO PRN (17:43)
--- NOTE | 2018-01-17 17:47 | HP ---
CIWA Score - CIWA Score Nausea/Vomitin Muscle Tremors: 2 Anxiety: 3 Agitation: 3 Paroxysmal Sweats: 2 Orientation: 0-Oriented Tacttile Disturbances: 0-None Auditory Disturbances: 0-None Visual Disturbances: 0-None Headache: 0-None Present CIWA-Ar Total Score: 13 Admission ROS [facility] - HPI Chief Complaint: alcohol withdrawal sx Allergies/Adverse Reactions: Allergies Allergy/AdvReac Type Severity Reaction Status Date / Time No Known Allergies Allergy Verified 01/17/18 17:39 History of Present Illness: 42 yo male with hx of alcohol dependence is here seeking detox. Last detox [facility] 02/28/17 -03/14/17. PMHX: COPD, HTN, bipolar and depression. Denies suicidal / homicidal ideation. Denies hx of seizures or blackouts. Longest period of sobriety 1.5 years Exam Limitations: No Limitations - Ebola screening Have you traveled outside of the country in the last 21 days: No Have you had contact with anyone from an Ebola affected area: No Have you been sick,other than usual withdrawal symptoms: No Do you have a fever: No - Review of Systems Constitutional: Diaphoresis, Changes in sleep EENT: reports: No Symptoms Reported Respiratory: reports: See HPI, Other (SOB at night) Cardiac: reports: Other (denies chest pain right now, reports two days ago went to ED for CP) GI: reports: Nausea, Poor Fluid Intake : reports: No Symptoms Reported Musculoskeletal: reports: Back Pain Integumentary: reports: No Symptoms Reported Neuro: reports: Numbness (hands and feet), Tingling Endocrine: reports: Increased Thirst Hematology: reports: See HPI Psychiatric: reports: Orientated x3, Anxious Other Systems: Reviewed and Negative Patient History - Patient Medical History Hx Anemia: No Hx Asthma: No Hx Chronic Obstructive Pulmonary Disease (COPD): Yes Hx Cancer: Yes (Emphysema ) Hx Cardiac Disorders: No Hx Congestive Heart Failure: No Hx Hypertension: Yes Hx Hypercholesterolemia: No Hx Pacemaker: No HX Cerebrovascular Accident: No Hx Seizures: No Hx Dementia: No Hx Diabetes: No Hx Gastrointestinal Disorders: No Hx Liver Disease: No Hx Genitourinary Disorders: No Hx Sexually Transmitted Disorders: No Hx Renal Disease (ESRD): No Hx Thyroid Disease: No Hx Human Immunodeficiency Virus (HIV): No Hx Hepatitis C: No Hx Depression: Yes Hx Suicide Attempt: No Hx Bipolar Disorder: Yes Hx Schizophrenia: No - Patient Surgical History Past Surgical History: Yes Hx Neurologic Surgery: No Hx Cataract Extraction: No Hx Cardiac Surgery: No Hx Lung Surgery: No Hx Breast Surgery: No Hx Breast Biopsy: No Hx Abdominal Surgery: No Hx Appendectomy: No Hx Cholecystectomy: No Hx Genitourinary Surgery: No Hx Section: No Hx Orthopedic Surgery: No Other Surgical History: dental surgery root canal Anesthesia Reaction: No - PPD History Documented Results: Positive w/proof Implanted On Prior [facility] Admission?: No PPD to be Administered?: No - Smoking Cessation Smoking history: Current every day smoker Have you smoked in the past 12 months: Yes Aproximately how many cigarettes per day: 20 Cigars Per Day: 0 Hx Chewing Tobacco Use: No Initiated information on smoking cessation: Yes 'Breaking Loose' booklet given: 01/17/18 - Substance & Tx. History Hx Alcohol Use: Yes Hx Substance Use: Yes Substance Use Type: Alcohol Hx Substance Use Treatment: Yes ([facility] 02/28/17 -03/14/17) - Substances Abused Alcohol Route: Oral Frequency: Daily Amount used: 12pk beer/ 1 pint vodka Age of first use: 8 Date of Last Use: 01/17/18 Family Disease History - Family Disease History Family Disease History: Other: Grandparent (CVA), Mother (alcoholic) Admission Physical Exam S - Vital Signs Vital Signs: Vital Signs - 24 hr 01/17/18 17:27 Temperature 99.0 F Pulse Rate 112 H Respiratory 18 Rate Blood Pressure 130/88 - Physical General Appearance: Yes: Disheveled, Alcohol on Breath, Sweating, Anxious HEENTM: Yes: EOMI, Hearing grossly Normal, Normal ENT Inspection, Normocephalic , Normal Voice, NEREYDA, Pharynx Normal, Tm's normal Respiratory: Yes: Chest Non-Tender, Lungs Clear, Normal Breath Sounds, No Respiratory Distress, No Accessory Muscle Use Neck: Yes: No masses,lesions,Nodules, Trachea in good position Breast: Yes: Breast Exam Deferred Cardiology: Yes: Regular Rhythm, Regular Rate Abdominal: Yes: Normal Bowel Sounds, Non Tender, Protuberent Genitourinary: Yes: Within Normal Limits Back: Yes: Normal Inspection Musculoskeletal: Yes: full range of Motion, Gait Steady, Pelvis Stable, Back pain Extremities: Yes: Normal Capillary Refill, Normal Inspection, Normal Range of Motion, Non-Tender 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 NML intact, Fully Oriented, Alert, Motor Strength 5/5, Normal Response, Depressed Affect Integumentary: Yes: Normal Color, Warm, Diaphoresis Lymphatic: Yes: Within Normal Limits - Diagnostic (1) Alcohol dependence with uncomplicated withdrawal Current Visit: Yes Status: Acute (2) COPD (chronic obstructive pulmonary disease) Current Visit: Yes Status: Chronic (3) Insomnia Current Visit: Yes Status: Acute (4) Nicotine dependence Current Visit: Yes Status: Acute Qualifiers: Nicotine product type: cigarettes Substance use status: in withdrawal Qualified Code(s): F17.213 - Nicotine dependence, cigarettes, with withdrawal (5) HTN (hypertension) Current Visit: Yes Status: Chronic Qualifiers: Hypertension type: essential hypertension Qualified Code(s): I10 - Essential (primary) hypertension Cleared for Admission [facility] - Detox or Rehab [facility] Level of Care: Medically Managed Detox Regimen/Protocol: Librium S Breath Alcohol Content Breath Alcohol Content: 0.170 Urine Drug Screen - Results Drug Screen Negative: Yes
[2018-01-17] MEDS: chlordiazePOXIDE HCL 25 MG CAPSULE PO PRN (19:44)
[2018-01-17] MEDS ORDERED: MELATONIN 5 MG TABLETS PO PRN (22:00)
[2018-01-17] MEDS: chlordiazePOXIDE HCL 25 MG CAPSULE PO SCH (23:18)
[2018-01-17] MEDS: THIAMINE HCL 100 MG TABLET (FP) PO SCH (23:20)
[2018-01-17 23:38] LABS: URINE APPEARANCE CLEAR; URINE BILIRUBIN NEGATIVE (<2.0 mg/dL); URINE COLOR COLORLESS; URINE GLUCOSE (UA) NEGATIVE (NEGATIVE); URINE KETONE NEGATIVE (NEGATIVE); URINE LEUK ESTERASE NEGATIVE (NEGATIVE); URINE NITRITE NEGATIVE (NEGATIVE); URINE PROTEIN NEGATIVE (NEGATIVE); URINE UROBILINOGEN NEGATIVE mg/dL (0.2-1.0)
[2018-01-18] MEDS: chlordiazePOXIDE HCL 25 MG CAPSULE PO PRN (01:11)
[2018-01-18] MEDS: chlordiazePOXIDE HCL 25 MG CAPSULE PO SCH ×4 (05:48→22:15)
--- NOTE | 2018-01-18 07:42 | CONSULT ---
[facility] Psychiatric Consult - Data Date of interview: 01/18/18 Admission source: [facility] Identifying data: This is 42 years old male, , father og three, living with family, on [place], with no psychiuatric hoispitalization history, with history of Bipolar disorder, hjistory of Hitory of Alcohol depemdence is here reporting withddrawal symptoms and seeking for detox. Substance Abuse History: - Smoking Cessation. Smoking history: Current every day smoker. Have you smoked in the past 12 months: Yes. Aproximately how many cigarettes per day: 20. Cigars Per Day: 0. Hx Chewing Tobacco Use: No. Initiated information on smoking cessation: Yes. 'Breaking Loose' booklet given : 01/17/18. - Substance & Tx. History. Hx Alcohol Use: Yes. Hx Substance Use : Yes. Substance Use Type: Alcohol. Hx Substance Use Treatment: Yes ([facility] 02/28 -03/14/17). - Substances Abused. Alcohol. Route: Oral. Frequency: Daily. Amount used: 12pk beer/ 1 pint vodka. Age of first use: 8. Date of Last Use: 01/17/18 Medical History: COPD, HTN, Psychiatric History: Patient reports history of Bipolar Depression, reports no history of psychiatrioc admission, no history of suicidal, homicidal ideation. Patient reports taking prior to admsision: Buspar 10mg po bid. Seroquel 100mg po qhs. Physical/Sexual Abuse/Trauma History: Denies Additional Comment: Buspar 10mg po bid. Seroquel 100mg po qhs. Mental Status Exam - Mental Status Exam Alert and Oriented to: Person Cognitive Function: Fair Patient Appearance: Well Groomed Mood: Apprehensive Affect: Mood Congruent Patient Behavior: Cooperative Speech Pattern: Appropriate Voice Loudness: Normal Thought Process: Goal Oriented Thought Disorder: Being Controlled Hallucinations: Denies Suicidal Ideation: Denies Homicidal Ideation: Denies Insight/Judgement: Fair Sleep: Difficulty falling asleep Appetite: Weight gain Muscle strength/Tone: Normal Gait/Station: Normal Additional Comments: Buspar 10mg po bid. Seroquel 100mg po qhs. Psychiatric Findings - Problem List ([place] 1, 2,3) (1) Bipolar disorder Current Visit: Yes Status: Suspected (2) Alcohol dependence with uncomplicated withdrawal Current Visit: Yes Status: Acute (3) Nicotine dependence Current Visit: Yes Status: Acute Qualifiers: Nicotine product type: cigarettes Substance use status: in withdrawal Qualified Code(s): F17.213 - Nicotine dependence, cigarettes, with withdrawal (4) Cannabis dependence Current Visit: No Status: Acute (5) Cocaine dependence Current Visit: No Status: Acute Qualifiers: Substance use status: uncomplicated Qualified Code(s): F14.20 - Cocaine dependence, uncomplicated (6) Alcohol dependence Current Visit: No Status: Chronic (7) Alcohol-induced anxiety disorder Current Visit: No Status: Chronic (8) Alcohol-induced sleep disorder Current Visit: No Status: Chronic (9) Blackout Current Visit: No Status: Chronic (10) Insomnia Current Visit: Yes Status: Acute (11) COPD (chronic obstructive pulmonary disease) Current Visit: Yes Status: Chronic (12) HTN (hypertension) Current Visit: Yes Status: Chronic Qualifiers: Hypertension type: essential hypertension Qualified Code(s): I10 - Essential (primary) hypertension (13) Asthma Current Visit: No Status: Acute (14) History of COPD Current Visit: No Status: Chronic - Initial Treatment Plan Initial Treatment Plan: Buspar 10mg po bid. Seroquel 100mg po qhs.
[2018-01-18 10:18] LABS: HEMATOCRIT 42.3 % (35.4-49); HEMOGLOBIN 14.4 GM/dL (11.7-16.9); MCH 30.8 pg (25.7-33.7); MEAN CELL VOLUME 90.6 fl (80-96); MEAN PLT VOLUME 9.7 fl (7.5-11.1); PLATELET COUNT 241 K/MM3 (134-434); RBC 4.67 M/mm3 (4.00-5.60); RDW 13.7 % (11.9-15.9); WHITE BLOOD COUNT 5.6 K/mm3 (4.0-10.0)
[2018-01-18] MEDS: NICOTINE 14 MG/24 HOURS TOPICAL PATCH TD SCH (10:18)
[2018-01-18] MEDS: PRENATAL VITAMINS W/ FOLIC ACID TABLET (FP) PO SCH (10:18)
[2018-01-18] MEDS: busPIRone HCL 10 MG TABLET (FP) PO SCH ×2 (10:18→22:14)
[2018-01-18] MEDS: IBUPROFEN 400 MG TABLET (FP) PO PRN ×2 (10:19→17:29)
[2018-01-18 10:26] LABS: ALBUMIN 3.8 g/dl (3.4-5.0); ANION GAP 9 (8-16); BILIRUBIN,TOTAL 0.6 mg/dL (0.2-1.0); BLOOD UREA NITROGEN 9 mg/dL (7-18); CALCIUM 9.1 mg/dL (8.5-10.1); CHLORIDE 108 mmol/L (98-107); CO2 24 mmol/L (21-32); CREATININE 1.1 mg/dL (0.7-1.3); GLUCOSE,RANDOM 100 mg/dL (74-106); POTASSIUM 4.3 mmol/L (3.5-5.1); SGOT/AST 64 U/L (15-37); SGPT/ALT 87 U/L (12-78); SODIUM 141 mmol/L (136-145); TOT PROT 7.1 g/dl (6.4-8.2)
[2018-01-18 10:27] LABS: ALK PHOS 90 U/L (45-117)
--- NOTE | 2018-01-18 11:02 | PN ---
S CIWA - CIWA Score Nausea/Vomitin Muscle Tremors: 3 Anxiety: 2 Agitation: 2 Paroxysmal Sweats: 1-Minimal Palms Moist Orientation: 0-Oriented Tacttile Disturbances: 1-Very Mild Itch/Numbness Auditory Disturbances: 1-Very Mild Visual Disturbances: 0-None Headache: 2-Mild CIWA-Ar Total Score: 15 S Progress Note (SOAP) Subjective: alert,irritable,anxious,interrupted sleep,tremor Objective: 01/18/18 10:58 Vital Signs Temperature 97.0 F L 01/18/18 10:00 Pulse Rate 81 01/18/18 10:00 Respiratory Rate 20 01/18/18 10:00 Blood Pressure 139/85 01/18/18 10:00 O2 Sat by Pulse Oximetry (%) ekg nsr 85/min qt 374/445 Laboratory Last Values WBC 5.6 K/mm3 (4.0-10.0) 01/18/18 07:00 RBC 4.67 M/mm3 (4.00-5.60) 01/18/18 07:00 Hgb 14.4 GM/dL (11.7-16.9) 01/18/18 07:00 Hct 42.3 % (35.4-49) 01/18/18 07:00 MCV 90.6 fl (80-96) 01/18/18 07:00 MCH 30.8 pg (25.7-33.7) 01/18/18 07:00 MCHC 34.0 g/dl (32.0-35.9) 01/18/18 07:00 RDW 13.7 % (11.9-15.9) 01/18/18 07:00 Plt Count 241 K/MM3 (134-434) D 01/18/18 07:00 MPV 9.7 fl (7.5-11.1) 01/18/18 07:00 Sodium 141 mmol/L (136-145) 01/18/18 07:00 Potassium 4.3 mmol/L (3.5-5.1) 01/18/18 07:00 Chloride 108 mmol/L (98-107) H 01/18/18 07:00 Carbon Dioxide 24 mmol/L (21-32) 01/18/18 07:00 Anion Gap 9 (8-16) 01/18/18 07:00 BUN 9 mg/dL (7-18) 01/18/18 07:00 Creatinine 1.1 mg/dL (0.7-1.3) 01/18/18 07:00 Creat Clearance w eGFR > 60 (>60) 01/18/18 07:00 Random Glucose 100 mg/dL (74-106) 01/18/18 07:00 Calcium 9.1 mg/dL (8.5-10.1) 01/18/18 07:00 Total Bilirubin 0.6 mg/dL (0.2-1.0) 01/18/18 07:00 AST 64 U/L (15-37) H D 01/18/18 07:00 ALT 87 U/L (12-78) H D 01/18/18 07:00 Alkaline Phosphatase 90 U/L (45-117) 01/18/18 07:00 Total Protein 7.1 g/dl (6.4-8.2) 01/18/18 07:00 Albumin 3.8 g/dl (3.4-5.0) 01/18/18 07:00 Urine Color Colorless 01/17/18 Unknown Urine Appearance Clear 01/17/18 Unknown Urine pH 6.0 (5.0-8.0) 01/17/18 Unknown Ur Specific [place] 1.003 (1.001-1.035) 01/17/18 Unknown Urine Protein Negative (NEGATIVE) 01/17/18 Unknown Urine Glucose (UA) Negative (NEGATIVE) 01/17/18 Unknown Urine Ketones Negative (NEGATIVE) 01/17/18 Unknown Urine Blood Negative (NEGATIVE) 01/17/18 Unknown Urine Nitrite Negative (NEGATIVE) 01/17/18 Unknown Urine Bilirubin Negative (<2.0 mg/dL) 01/17/18 Unknown Urine Urobilinogen Negative mg/dL (0.2-1.0) 01/17/18 Unknown Ur Leukocyte Esterase Negative (NEGATIVE) 01/17/18 Unknown 01/18/18 11:01 labs pending Assessment: 01/18/18 11:01 withdrawal symptom Plan: continue detox
--- NOTE | 2018-01-18 12:11 | EKG ---
Test Reason : Blood Pressure : / mmHG Vent. Rate : 085 BPM Atrial Rate : 085 BPM P-R Int : 164 ms QRS Dur : 092 ms QT Int : 374 ms P-R-T Axes : 056 023 050 degrees QTc Int : 445 ms NORMAL SINUS RHYTHM POSSIBLE LEFT ATRIAL ENLARGEMENT BORDERLINE ECG WHEN COMPARED WITH ECG OF 24-FEB-2017 12:33, NO SIGNIFICANT CHANGE WAS FOUND Confirmed by CLARIBEL NAVARRO MD ([id number]) on 01/18/2018 12:11:18 PM Referred By: Confirmed By:CLARIBEL NAVARRO MD
[2018-01-18] MEDS: QUEtiapine FUMARATE 100 MG TABLET (FP) PO SCH (22:15)
[2018-01-18] MEDS: THIAMINE HCL 100 MG TABLET (FP) PO SCH (22:15)
[2018-01-19] MEDS: chlordiazePOXIDE HCL 25 MG CAPSULE PO SCH ×3 (06:03→17:18)
[2018-01-19] MEDS: PRENATAL VITAMINS W/ FOLIC ACID TABLET (FP) PO SCH (10:45)
[2018-01-19] MEDS: busPIRone HCL 10 MG TABLET (FP) PO SCH ×2 (10:45→22:17)
[2018-01-19] MEDS: NICOTINE 14 MG/24 HOURS TOPICAL PATCH TD SCH (10:46)
[2018-01-19] MEDS: IBUPROFEN 400 MG TABLET (FP) PO PRN ×2 (10:46→22:19)
--- NOTE | 2018-01-19 11:16 | PN ---
S CIWA - CIWA Score Nausea/Vomitin Muscle Tremors: 3 Anxiety: 2 Agitation: 2 Paroxysmal Sweats: 1-Minimal Palms Moist Orientation: 0-Oriented Tacttile Disturbances: 1-Very Mild Itch/Numbness Auditory Disturbances: 1-Very Mild Visual Disturbances: 0-None Headache: 2-Mild CIWA-Ar Total Score: 15 S Progress Note (SOAP) Subjective: alert,irritable,anxious,interrupted sleep,tremor Objective: 01/19/18 11:14 Vital Signs Temperature 97.9 F 01/19/18 10:09 Pulse Rate 86 01/19/18 10:09 Respiratory Rate 18 01/19/18 10:09 Blood Pressure 152/92 01/19/18 10:09 O2 Sat by Pulse Oximetry (%) Laboratory Last Values WBC 5.6 K/mm3 (4.0-10.0) 01/18/18 07:00 RBC 4.67 M/mm3 (4.00-5.60) 01/18/18 07:00 Hgb 14.4 GM/dL (11.7-16.9) 01/18/18 07:00 Hct 42.3 % (35.4-49) 01/18/18 07:00 MCV 90.6 fl (80-96) 01/18/18 07:00 MCH 30.8 pg (25.7-33.7) 01/18/18 07:00 MCHC 34.0 g/dl (32.0-35.9) 01/18/18 07:00 RDW 13.7 % (11.9-15.9) 01/18/18 07:00 Plt Count 241 K/MM3 (134-434) D 01/18/18 07:00 MPV 9.7 fl (7.5-11.1) 01/18/18 07:00 Sodium 141 mmol/L (136-145) 01/18/18 07:00 Potassium 4.3 mmol/L (3.5-5.1) 01/18/18 07:00 Chloride 108 mmol/L (98-107) H 01/18/18 07:00 Carbon Dioxide 24 mmol/L (21-32) 01/18/18 07:00 Anion Gap 9 (8-16) 01/18/18 07:00 BUN 9 mg/dL (7-18) 01/18/18 07:00 Creatinine 1.1 mg/dL (0.7-1.3) 01/18/18 07:00 Creat Clearance w eGFR > 60 (>60) 01/18/18 07:00 Random Glucose 100 mg/dL (74-106) 01/18/18 07:00 Calcium 9.1 mg/dL (8.5-10.1) 01/18/18 07:00 Total Bilirubin 0.6 mg/dL (0.2-1.0) 01/18/18 07:00 AST 64 U/L (15-37) H D 01/18/18 07:00 ALT 87 U/L (12-78) H D 01/18/18 07:00 Alkaline Phosphatase 90 U/L (45-117) 01/18/18 07:00 Total Protein 7.1 g/dl (6.4-8.2) 01/18/18 07:00 Albumin 3.8 g/dl (3.4-5.0) 01/18/18 07:00 Urine Color Colorless 01/17/18 Unknown Urine Appearance Clear 01/17/18 Unknown Urine pH 6.0 (5.0-8.0) 01/17/18 Unknown Ur Specific [place] 1.003 (1.001-1.035) 01/17/18 Unknown Urine Protein Negative (NEGATIVE) 01/17/18 Unknown Urine Glucose (UA) Negative (NEGATIVE) 01/17/18 Unknown Urine Ketones Negative (NEGATIVE) 01/17/18 Unknown Urine Blood Negative (NEGATIVE) 01/17/18 Unknown Urine Nitrite Negative (NEGATIVE) 01/17/18 Unknown Urine Bilirubin Negative (<2.0 mg/dL) 01/17/18 Unknown Urine Urobilinogen Negative mg/dL (0.2-1.0) 01/17/18 Unknown Ur Leukocyte Esterase Negative (NEGATIVE) 01/17/18 Unknown RPR Titer Nonreactive (NONREACTIVE) 01/18/18 07:00 HIV 1&2 Antibody Screen Negative 01/18/18 07:00 HIV P24 Antigen Negative 01/18/18 07:00 Assessment: 01/19/18 11:15 withdrawal symptom Plan: continue detox
[2018-01-19] MEDS ORDERED: cloNIDine HCL 0.1 MG TABLET PO ONE (22:10)
[2018-01-19] MEDS: chlordiazePOXIDE 5 MG CAPSULE PO SCH (22:16)
[2018-01-19] MEDS: QUEtiapine FUMARATE 100 MG TABLET (FP) PO SCH (22:17)
[2018-01-19] MEDS: THIAMINE HCL 100 MG TABLET (FP) PO SCH (22:17)
--- NOTE | 2018-01-20 00:08 | PN ---
[facility] Progress Note Note: Patient evaluated earlier for elevated blood pressure of 153/107. Alert and oriented w/o neuro changes. Vital Signs - 24 hr 01/19/18 01/19/18 01/19/18 00:30 03:30 07:37 Temperature 97 F L Pulse Rate 59 L Respiratory 18 18 20 Rate Blood Pressure 117/64 01/19/18 01/19/18 01/19/18 10:09 13:45 18:15 Temperature 97.9 F 97.9 F 98.6 F Pulse Rate 86 86 80 Respiratory 18 18 22 Rate Blood Pressure 152/92 152/92 153/107 01/19/18 22:23 Temperature 97.9 F Pulse Rate 78 Respiratory 18 Rate Blood Pressure 156/93 Prescribed clonidine 0.1 mg PO and f/u as needed.
[2018-01-20] MEDS: chlordiazePOXIDE 5 MG CAPSULE PO SCH ×3 (06:14→17:26)
[2018-01-20] MEDS: IBUPROFEN 400 MG TABLET (FP) PO PRN (06:15)
[2018-01-20] MEDS: PRENATAL VITAMINS W/ FOLIC ACID TABLET (FP) PO SCH (11:01)
[2018-01-20] MEDS: busPIRone HCL 10 MG TABLET (FP) PO SCH ×2 (11:01→22:31)
[2018-01-20] MEDS: NICOTINE 14 MG/24 HOURS TOPICAL PATCH TD SCH (11:02)
--- NOTE | 2018-01-20 21:36 | PN ---
[facility] Progress Note (SOAP) Subjective: Shakes sleep disturbance sweats Objective: 01/20/18 21:21 A & O x 3 in day room chatting with others Vital Signs Vital Signs Temperature 98 F 01/20/18 17:55 Pulse Rate 89 01/20/18 17:55 Respiratory Rate 18 01/20/18 17:55 Blood Pressure 160/100 01/20/18 17:55 O2 Sat by Pulse Oximetry (%) Assessment: 01/20/18 21:21 withdrawal sx Plan: continue detox monitor Bp
[2018-01-20] MEDS: chlordiazePOXIDE HCL 10 MG CAPSULE PO SCH (22:31)
[2018-01-20] MEDS: QUEtiapine FUMARATE 100 MG TABLET (FP) PO SCH (22:32)
[2018-01-20] MEDS: THIAMINE HCL 100 MG TABLET (FP) PO SCH (22:32)
[2018-01-21] MEDS: chlordiazePOXIDE HCL 10 MG CAPSULE PO SCH (05:46)
--- NOTE | 2018-01-21 08:33 | DS ---
[facility] Detox Discharge Summary Admission Date: 01/17/18 Discharge Date: 01/21/18 - History Present History: Alcohol Dependence Additional Comments: 43 years old male admitted on 01/17/18 for alcohol withdrawal sx completed alcohol detox regimen tolerated well denies alcohol withdrawal sx alert oriented x 3 no acute distress aftercare new focus - Physical Exam Results Vital Signs: Vital Signs Temperature 97.0 F L 01/21/18 06:00 Pulse Rate 67 01/21/18 06:00 Respiratory Rate 18 01/21/18 06:00 Blood Pressure 134/85 01/21/18 06:00 O2 Sat by Pulse Oximetry (%) Pertinent Admission Physical Exam Findings: alcohol withdrawal sx Vital Signs Temperature 97.4 F L 01/21/18 09:16 Pulse Rate 81 01/21/18 09:16 Respiratory Rate 18 01/21/18 09:16 Blood Pressure 164/99 01/21/18 09:16 O2 Sat by Pulse Oximetry (%) Laboratory Last Values WBC 5.6 K/mm3 (4.0-10.0) 01/18/18 07:00 RBC 4.67 M/mm3 (4.00-5.60) 01/18/18 07:00 Hgb 14.4 GM/dL (11.7-16.9) 01/18/18 07:00 Hct 42.3 % (35.4-49) 01/18/18 07:00 MCV 90.6 fl (80-96) 01/18/18 07:00 MCH 30.8 pg (25.7-33.7) 01/18/18 07:00 MCHC 34.0 g/dl (32.0-35.9) 01/18/18 07:00 RDW 13.7 % (11.9-15.9) 01/18/18 07:00 Plt Count 241 K/MM3 (134-434) D 01/18/18 07:00 MPV 9.7 fl (7.5-11.1) 01/18/18 07:00 Sodium 141 mmol/L (136-145) 01/18/18 07:00 Potassium 4.3 mmol/L (3.5-5.1) 01/18/18 07:00 Chloride 108 mmol/L (98-107) H 01/18/18 07:00 Carbon Dioxide 24 mmol/L (21-32) 01/18/18 07:00 Anion Gap 9 (8-16) 01/18/18 07:00 BUN 9 mg/dL (7-18) 01/18/18 07:00 Creatinine 1.1 mg/dL (0.7-1.3) 01/18/18 07:00 Creat Clearance w eGFR > 60 (>60) 01/18/18 07:00 Random Glucose 100 mg/dL (74-106) 01/18/18 07:00 Calcium 9.1 mg/dL (8.5-10.1) 01/18/18 07:00 Total Bilirubin 0.6 mg/dL (0.2-1.0) 01/18/18 07:00 AST 64 U/L (15-37) H D 01/18/18 07:00 ALT 87 U/L (12-78) H D 01/18/18 07:00 Alkaline Phosphatase 90 U/L (45-117) 01/18/18 07:00 Total Protein 7.1 g/dl (6.4-8.2) 01/18/18 07:00 Albumin 3.8 g/dl (3.4-5.0) 01/18/18 07:00 Urine Color Colorless 01/17/18 Unknown Urine Appearance Clear 01/17/18 Unknown Urine pH 6.0 (5.0-8.0) 01/17/18 Unknown Ur Specific [place] 1.003 (1.001-1.035) 01/17/18 Unknown Urine Protein Negative (NEGATIVE) 01/17/18 Unknown Urine Glucose (UA) Negative (NEGATIVE) 01/17/18 Unknown Urine Ketones Negative (NEGATIVE) 01/17/18 Unknown Urine Blood Negative (NEGATIVE) 01/17/18 Unknown Urine Nitrite Negative (NEGATIVE) 01/17/18 Unknown Urine Bilirubin Negative (<2.0 mg/dL) 01/17/18 Unknown Urine Urobilinogen Negative mg/dL (0.2-1.0) 01/17/18 Unknown Ur Leukocyte Esterase Negative (NEGATIVE) 01/17/18 Unknown RPR Titer Nonreactive (NONREACTIVE) 01/18/18 07:00 HIV 1&2 Antibody Screen Negative 01/18/18 07:00 HIV P24 Antigen Negative 01/18/18 07:00 lab noted health teaching on alcohol hepatic related health issues - Treatment Hospital Course: Detox Protocol Followed, Detoxed Safely, Responded well, Discharged Condition Good, Rehab Referral Accepted Patient has Accepted a Rehab Referral to: new focus - Medication Discharge Medications: Ambulatory Orders Folic Acid - 1 mg PO DAILY 01/17/18 Multivitamin [One Daily] 1 each PO DAILY 01/17/18 Thiamine Mononitrate [Vitamin B-1] 100 mg PO DAILY 01/17/18 Buspirone HCl [Buspar -] 10 mg PO BID #60 tablet 01/18/18 Quetiapine Fumarate [Seroquel] 100 mg PO HS #30 tablet 01/18/18 - Diagnosis (1) Alcohol dependence with uncomplicated withdrawal Current Visit: Yes Status: Acute (2) Nicotine dependence Current Visit: Yes Status: Acute Qualifiers: Nicotine product type: cigarettes Substance use status: in withdrawal Qualified Code(s): F17.213 - Nicotine dependence, cigarettes, with withdrawal (3) Asthma Current Visit: Yes Status: Chronic Qualifiers: Asthma severity: mild Asthma persistence: intermittent Asthma complication type: with status asthmaticus Qualified Code(s): J45.22 - Mild intermittent asthma with status asthmaticus (4) HTN (hypertension) Current Visit: Yes Status: Chronic Qualifiers: Hypertension type: essential hypertension Qualified Code(s): I10 - Essential (primary) hypertension (5) Bipolar disorder Current Visit: Yes Status: Suspected Qualifiers: Active/Remission status: in partial remission Most recent bipolar episode type: mixed Qualified Code(s): F31.77 - Bipolar disorder, in partial remission , most recent episode mixed (6) History of COPD Current Visit: Yes Status: Chronic - AMA Did Patient Leave Against Medical Advice: No
[2018-01-21 09:17] VITALS: BP 164/99; PULSE 81; TEMP 97.4
== END 2018-01-21 08:40 | disposition home or self-care (01) | DRG 775 ==
LOC: YASAS 15:44 → Y6N 18:20
PROVIDERS: ADMIT Surgery; ATTEND Surgery
PROC: HZ2ZZZZ Detoxification Services for Substance Abuse Treatment (ICD-10-PCS; principal; 2018-01-17)
DX: F10.230 Alcohol dependence with withdrawal, uncomplicated (principal); F17.213 Nicotine dependence, cigarettes, with withdrawal; F31.77 Bipolar disorder, in partial remission, most recent episode mixed; I10 Essential (primary) hypertension; J45.20 Mild intermittent asthma, uncomplicated; J44.9 Chronic obstructive pulmonary disease, unspecified
CPT/HCPCS: 36415; 80053; 81003; 85027; 86593; 87389; 93005; 93010; J0735

== ENCOUNTER 2020-01-13 20:38 | Inpatient (IN) | payer OTHER ==
[2020-01-13 21:12] VITALS: BMI 31.3
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
[2020-01-13] MEDS ORDERED: ONDANSETRON *ODT* 4 MG TABLET SL ONE (22:24)
[2020-01-13] MEDS ORDERED: guaiFENesin 200 MG/10 ML 10 ML UNIT-DOSE CUPS PO PRN (22:24)
[2020-01-13] MEDS ORDERED: MAGNESIUM HYDROX 2400MG/30ML ORAL SUSPENSION 30 ML CUP PO PRN (22:24)
[2020-01-13] MEDS ORDERED: chlordiazePOXIDE HCL 25 MG CAPSULE PO PRN (22:24)
[2020-01-13] MEDS ORDERED: MENTHOL/PHENOL 1 EACH UD MM PRN (22:24)
[2020-01-13] MEDS ORDERED: MAGNESIUM CITRATE 300 ML BOTTLE PO PRN (22:24)
[2020-01-13] MEDS ORDERED: P-EPHED 60MG/TRIPROLIDI 2.5MG TABLET PO PRN (22:24)
[2020-01-13] MEDS ORDERED: ACETAMINOPHEN 325 MG TABLET (FP) PO PRN ×2 (22:24)
[2020-01-13] MEDS ORDERED: IBUPROFEN 400 MG TABLET (FP) PO PRN (22:24)
[2020-01-13] MEDS ORDERED: DICYCLOMINE HCL 10 MG CAPSULE PO PRN (22:24)
[2020-01-13] MEDS ORDERED: BISMUTH SUBSALICYLATE 524 MG/30 ML UD PO PRN (22:24)
[2020-01-13] MEDS ORDERED: MAG HYDROX/AL HYDROX/SIMETH 30 ML UNIT-DOSE CUP PO PRN (22:24)
[2020-01-13] MEDS: chlordiazePOXIDE HCL 25 MG CAPSULE PO SCH (23:40)
[2020-01-13] MEDS: hydrOXYzine PAMOATE 25 MG CAPSULE (FP) PO PRN (23:40)
[2020-01-13] MEDS ORDERED: MELATONIN 5 MG TABLETS ONE (23:42)
[2020-01-14] MEDS: NYSTATIN 500,000 UNITS/5 ML SUSPENSION PO SCH ×4 (00:22→17:57)
[2020-01-14] MEDS: hydrOXYzine PAMOATE 25 MG CAPSULE (FP) PO PRN ×3 (06:24→22:09)
[2020-01-14] MEDS: chlordiazePOXIDE HCL 25 MG CAPSULE PO SCH ×4 (06:24→22:10)
--- NOTE | 2020-01-14 09:29 | CONSULT ---
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 This is one of multiple admissions for patient. Patient admitted to for alcohol and cocaine dependence. Substance Abuse History: Smoking Cessation. Smoking history: Current every day smoker. Have you smoked in the past 12 months: Yes. Aproximately how many cigarettes per day: 30. Cigars Per Day: 0. Hx Chewing Tobacco Use: No. Initiated information on smoking cessation: Yes. 'Breaking Loose' booklet given: 01/13/20. - Substance & Tx. History. Substance Use Type: Alcohol, Cocaine, Marijuana. Hx Substance Use Treatment: Yes ([facility]). - Substances abused. Alcohol. Other (specify): VODKA. Substance route: Oral. Frequency: Daily. Amount used: 2 PINTS. Age of first use: 7. Date of last use: 01/13/20. Cocaine. Substance route: Inhalation. Frequency: 1-2 times per week. Amount used: 1 GM. Age of first use: 34. Date of last use: 01/12/20. Marijuana/Hashish. Substance route: Smoking. Frequency: 3-6 times per week (3X). Amount used: 1OZ. Age of first use: 14. Date of last use: 01/12/20 Medical History: hypertension. Psychiatric History: Patient denies history of psychiatric hospitalizations and suicide attempt. He reports receiving outpatient psychiatric treatment at the [facility] by Dr. Benitez several years ago. Reports being diagnosed with Bipolar disorder and was prescribed seroquel. At present patient is requesting seroquel for insomnia. Physical/Sexual Abuse/Trauma History: denies. Mental Status Exam - Mental Status Exam Alert and Oriented to: Time, Place, Person Cognitive Function: Good Patient Appearance: Well Groomed Mood: Hopeful Affect: Appropriate Patient Behavior: Cooperative Speech Pattern: Appropriate Voice Loudness: Normal Thought Process: Goal Oriented Thought Disorder: Not Present Hallucinations: Denies Suicidal Ideation: Denies Homicidal Ideation: Denies Insight/Judgement: Poor Sleep: Poorly Appetite: Fair Muscle strength/Tone: Normal Gait/Station: Normal Psychiatric Findings - Problem List ([place] 1, 2,3) (1) Substance-induced sleep disorder Current Visit: Yes Status: Acute (2) Alcohol dependence with uncomplicated withdrawal Current Visit: Yes Status: Acute (3) Cannabis dependence Current Visit: Yes Status: Acute (4) Cocaine dependence Current Visit: Yes Status: Acute Qualifiers: Substance use status: uncomplicated Qualified Code(s): F14.20 - Cocaine dependence, uncomplicated - Initial Treatment Plan Initial Treatment Plan: Psychoeducation provided. Detoxification in progress. Will order Seroquel 50mg HS. Benefits and side effects discussed. Verbal consent given.
[2020-01-14] MEDS: PRENATAL VITAMINS W/ FOLIC ACID TABLET (FP) PO SCH (10:19)
[2020-01-14] MEDS: NICOTINE 21 MG/24 HOURS TOPICAL PATCH TD SCH (10:20)
[2020-01-14 10:30] LABS: HEMATOCRIT 46.4 % (35.4-49); HEMOGLOBIN 15.5 GM/dL (11.7-16.9); MCH 33.1 pg (25.7-33.7); MCHC 33.4 g/dl (32.0-35.9); MEAN CELL VOLUME 99.1 fl (80-96); MEAN PLT VOLUME 10.2 fl (7.5-11.1); PLATELET COUNT 224 K/MM3 (134-434); RBC 4.68 M/mm3 (4.00-5.60); RDW 14.4 % (11.9-15.9); WHITE BLOOD COUNT 4.8 K/mm3 (4.0-10.0)
[2020-01-14 10:36] LABS: ALBUMIN 3.6 g/dl (3.4-5.0); BILIRUBIN,TOTAL 0.8 mg/dL (0.2-1); BLOOD UREA NITROGEN 7.2 mg/dL (7-18); CALCIUM 9.2 mg/dL (8.5-10.1); CREATININE 0.9 mg/dL (0.55-1.3); POTASSIUM 3.7 mmol/L (3.5-5.1)
--- NOTE | 2020-01-14 11:20 | PN ---
S CIWA - CIWA Score Nausea/Vomitin-No Nausea/No Vomiting Muscle Tremors: 3 Anxiety: 4-Mod. Anxious/Guarded Agitation: 2 Paroxysmal Sweats: 1-Minimal Palms Moist Orientation: 0-Oriented Tacttile Disturbances: 0-None Auditory Disturbances: 0-None Visual Disturbances: 0-None Headache: 0-None Present CIWA-Ar Total Score: 10 BHS Progress Note (SOAP) Subjective: Pt is a 44 y/o male admitted to detox for alcohol withdrawal sx. On Librium regimen. c/o Body aches fatigue slight tremors. Objective: 01/14/20 11:18 Vital Signs - 24 hr 01/13/20 01/13/20 01/14/20 21:10 23:40 06:19 Temperature 97.9 F 97.7 F 98.4 F Pulse Rate 82 82 90 Respiratory 18 20 16 Rate Blood Pressure 135/89 135/95 125/85 O2 Sat by Pulse 97 95 Oximetry (%) Laboratory Tests 01/14/20 01/14/20 08:00 08:00 WBC 4.8 RBC 4.68 Hgb 15.5 Hct 46.4 MCV 99.1 H MCH 33.1 MCHC 33.4 RDW 14.4 Plt Count 224 MPV 10.2 Sodium 142 Potassium 3.7 Chloride 103 Carbon Dioxide 29 Anion Gap 9 BUN 7.2 Creatinine 0.9 Est GFR (CKD-EPI)AfAm 120.81 Est GFR (CKD-EPI)NonAf 104.24 Random Glucose 100 Calcium 9.2 Total Bilirubin 0.8 AST 158 H ALT 140 H Alkaline Phosphatase 126 H Total Protein 7.0 Albumin 3.6 elevated liver enzymes covid-19 results pending Assessment: 01/14/20 11:19 mild to mod. withdrawal sx Plan: cont detox increase po fluids maintain safety
--- NOTE | 2020-01-14 12:07 | EKG ---
Test Reason : Blood Pressure : / mmHG Vent. Rate : 073 BPM Atrial Rate : 073 BPM P-R Int : 178 ms QRS Dur : 086 ms QT Int : 402 ms P-R-T Axes : 059 010 034 degrees QTc Int : 442 ms NORMAL SINUS RHYTHM POSSIBLE LEFT ATRIAL ENLARGEMENT BORDERLINE ECG WHEN COMPARED WITH ECG OF 17-JAN-2018 19:20, NO SIGNIFICANT CHANGE WAS FOUND Confirmed by MD Rogers Daniel ([id number]) on 01/14/2020 12:06:56 PM Referred By: Confirmed By:Ron Rogers MD
[2020-01-14 17:20] LABS: URINE APPEARANCE TURBID; URINE BILIRUBIN NEGATIVE (NEGATIVE); URINE COLOR DK YELLOW; URINE GLUCOSE (UA) NEGATIVE (NEGATIVE); URINE KETONE TRACE (NEGATIVE); URINE LEUK ESTERASE NEGATIVE (NEGATIVE); URINE NITRITE NEGATIVE (NEGATIVE); URINE PROTEIN TRACE (NEGATIVE)
[2020-01-14] MEDS: NICOTINE POLACRILEX 4 MG GUM BUC PRN (20:56)
[2020-01-14] MEDS: QUEtiapine FUMARATE 50 MG TABLET PO SCH (22:08)
[2020-01-14] MEDS: THIAMINE HCL 100 MG TABLET (FP) PO SCH (22:09)
[2020-01-14] MEDS: MELATONIN 5 MG TABLETS PO SCH (22:09)
[2020-01-15] MEDS: NYSTATIN 500,000 UNITS/5 ML SUSPENSION PO SCH ×5 (00:30→23:31)
[2020-01-15] MEDS: chlordiazePOXIDE HCL 25 MG CAPSULE PO SCH ×4 (05:58→22:15)
[2020-01-15] MEDS: hydrOXYzine PAMOATE 25 MG CAPSULE (FP) PO PRN ×3 (10:38→22:15)
[2020-01-15] MEDS: PRENATAL VITAMINS W/ FOLIC ACID TABLET (FP) PO SCH (10:38)
[2020-01-15] MEDS: NICOTINE POLACRILEX 4 MG GUM BUC PRN ×3 (10:40→15:57)
[2020-01-15] MEDS: NICOTINE 21 MG/24 HOURS TOPICAL PATCH TD SCH (10:41)
--- NOTE | 2020-01-15 10:47 | PN ---
S CIWA - CIWA Score Nausea/Vomitin-No Nausea/No Vomiting Muscle Tremors: 4-Moderate,w/Arms Extend Anxiety: 4-Mod. Anxious/Guarded Agitation: 4-Moderately Restless Paroxysmal Sweats: 1-Minimal Palms Moist Orientation: 0-Oriented Tacttile Disturbances: 0-None Auditory Disturbances: 0-None Visual Disturbances: 0-None Headache: 0-None Present CIWA-Ar Total Score: 13 BHS COWS - Scale Resting Pulse: 0= [place] 80 or Below Sweatin= Chills/Flushing Restless Observation: 3= Extraneous Movement Pupil Size: 0= Normal to Room Light Bone or Joint Aches: 4=Acute Joint/Muscle Pain Runny Nose/ Eye Tearin= None GI Upset > 30mins: 0= None Tremor Observation of Outstretched Hands: 1= Tremor [place], Not Seen Yawning Observation: 0= None Anxiety or Irritability: 2=Irritable/Anxious Goose Flesh Skin: 0=Smooth Skin COWS Score: 11 S Progress Note (SOAP) Subjective: saw pt in large dinning room during rounds trying to get himself some beverage but appeared uncomfortable c/o Tremors sweats/chills body aches fatigue "dreams" Objective: 01/15/20 12:05 Vital Signs - 24 hr 01/14/20 01/14/20 01/14/20 12:59 16:55 20:45 Temperature 98.8 F 97.1 F L 97.5 F L Pulse Rate 82 76 76 Respiratory 18 18 18 Rate Blood Pressure 146/95 150/97 156/98 O2 Sat by Pulse 98 96 Oximetry (%) 01/15/20 05:36 Temperature 97.7 F Pulse Rate 64 Respiratory 18 Rate Blood Pressure 124/72 O2 Sat by Pulse 96 Oximetry (%) Laboratory Tests 01/14/20 01/14/20 01/14/20 08:00 08:00 08:00 WBC 4.8 RBC 4.68 Hgb 15.5 Hct 46.4 MCV 99.1 H MCH 33.1 MCHC 33.4 RDW 14.4 Plt Count 224 MPV 10.2 Sodium Potassium Chloride Carbon Dioxide Anion Gap BUN Creatinine Est GFR (CKD-EPI)AfAm Est GFR (CKD-EPI)NonAf Random Glucose Calcium Total Bilirubin AST ALT Alkaline Phosphatase Total Protein Albumin Urine Color Urine Appearance Urine pH Ur Specific [place] Urine Protein Urine Glucose (UA) Urine Ketones Urine Blood Urine Nitrite Urine Bilirubin Urine Urobilinogen Ur Leukocyte Esterase Syphilis Serology Non-reactive HIV Ag/Ab Combo Qual Negative 01/14/20 01/14/20 08:00 15:20 WBC RBC Hgb Hct MCV MCH MCHC RDW Plt Count MPV Sodium 142 Potassium 3.7 Chloride 103 Carbon Dioxide 29 Anion Gap 9 BUN 7.2 Creatinine 0.9 Est GFR (CKD-EPI)AfAm 120.81 Est GFR (CKD-EPI)NonAf 104.24 Random Glucose 100 Calcium 9.2 Total Bilirubin 0.8 AST 158 H ALT 140 H Alkaline Phosphatase 126 H Total Protein 7.0 Albumin 3.6 Urine Color Dk yellow Urine Appearance Turbid Urine pH 6.0 Ur Specific [place] 1.027 Urine Protein Trace Urine Glucose (UA) Negative Urine Ketones Trace H Urine Blood Negative Urine Nitrite Negative Urine Bilirubin Negative Urine Urobilinogen 2.0 Ur Leukocyte Esterase Negative Syphilis Serology HIV Ag/Ab Combo Qual covid-19 result pending alert o x 3 nad oob ambulating with steady gait Assessment: 01/15/20 12:08 withdrawal sx Plan: cont detox increase po fluids maintain safety.
[2020-01-15] MEDS: METHOCARBAMOL 500 MG TABLET PO PRN (13:43)
[2020-01-15] MEDS: THIAMINE HCL 100 MG TABLET (FP) PO SCH (22:15)
[2020-01-15] MEDS: MELATONIN 5 MG TABLETS PO SCH (22:15)
[2020-01-15] MEDS: QUEtiapine FUMARATE 50 MG TABLET PO SCH (22:15)
[2020-01-16] MEDS ORDERED: chlordiazePOXIDE HCL 10 MG CAPSULE PO PRN
[2020-01-16] MEDS: NYSTATIN 500,000 UNITS/5 ML SUSPENSION PO SCH ×3 (06:32→17:50)
[2020-01-16] MEDS: chlordiazePOXIDE HCL 10 MG CAPSULE PO SCH ×4 (06:32→22:13)
[2020-01-16] MEDS: PRENATAL VITAMINS W/ FOLIC ACID TABLET (FP) PO SCH (10:32)
[2020-01-16] MEDS: NICOTINE 21 MG/24 HOURS TOPICAL PATCH TD SCH (10:32)
[2020-01-16] MEDS: NICOTINE POLACRILEX 4 MG GUM BUC PRN (10:34)
[2020-01-16 11:39] LABS: INR 0.94 (0.83-1.09); PROTHROMBIN TIME (PATIENT) 11.1 SEC (9.7-13.0)
[2020-01-16 11:39] LABS: ALK PHOS 150 U/L (45-117); SGOT/AST 79 U/L (15-37); SGPT/ALT 96 U/L (13-61)
--- NOTE | 2020-01-16 13:45 | PN ---
[facility] CIWA - CIWA Score Nausea/Vomitin-No Nausea/No Vomiting Muscle Tremors: 3 Anxiety: 4-Mod. Anxious/Guarded Agitation: 3 Paroxysmal Sweats: 1-Minimal Palms Moist Orientation: 0-Oriented Tacttile Disturbances: 0-None Auditory Disturbances: 0-None Visual Disturbances: 0-None Headache: 0-None Present CIWA-Ar Total Score: 11 S COWS - Scale Resting Pulse: 1= [place] 81-100 Sweatin= Chills/Flushing Restless Observation: 3= Extraneous Movement Pupil Size: 0= Normal to Room Light Bone or Joint Aches: 1= Mild Discomfort Runny Nose/ Eye Tearin= None GI Upset > 30mins: 0= None Tremor Observation of Outstretched Hands: 1= Tremor [place], Not Seen Yawning Observation: 0= None Anxiety or Irritability: 2=Irritable/Anxious Goose Flesh Skin: 0=Smooth Skin COWS Score: 9 S Progress Note (SOAP) Subjective: c/o anxiety irritability fatigue Objective: 01/16/20 13:47 Vital Signs - 24 hr 01/15/20 01/15/20 01/15/20 14:37 16:35 20:10 Temperature 96.8 F L 98.0 F 97.8 F Pulse Rate 72 69 77 Respiratory 20 18 20 Rate Blood Pressure 146/94 160/102 H 151/105 H O2 Sat by Pulse 98 97 Oximetry (%) 01/16/20 01/16/20 01/16/20 05:31 09:50 13:30 Temperature 98.6 F Pulse Rate 68 85 79 Respiratory 18 20 18 Rate Blood Pressure 130/84 137/86 148/70 O2 Sat by Pulse 97 96 98 Oximetry (%) Laboratory Tests 01/13/20 01/14/20 01/14/20 23:05 08:00 08:00 WBC RBC Hgb Hct MCV MCH MCHC RDW Plt Count MPV PT with INR INR Sodium Potassium Chloride Carbon Dioxide Anion Gap BUN Creatinine Est GFR (CKD-EPI)AfAm Est GFR (CKD-EPI)NonAf Random Glucose Calcium Total Bilirubin AST ALT Alkaline Phosphatase Total Protein Albumin Urine Color Urine Appearance Urine pH Ur Specific [place] Urine Protein Urine Glucose (UA) Urine Ketones Urine Blood Urine Nitrite Urine Bilirubin Urine Urobilinogen Ur Leukocyte Esterase Syphilis Serology Non-reactive COVID-19 ([facility]A) Not detected HIV Ag/Ab Combo Qual Negative 01/14/20 01/14/20 01/14/20 08:00 08:00 15:20 WBC 4.8 RBC 4.68 Hgb 15.5 Hct 46.4 MCV 99.1 H MCH 33.1 MCHC 33.4 RDW 14.4 Plt Count 224 MPV 10.2 PT with INR INR Sodium 142 Potassium 3.7 Chloride 103 Carbon Dioxide 29 Anion Gap 9 BUN 7.2 Creatinine 0.9 Est GFR (CKD-EPI)AfAm 120.81 Est GFR (CKD-EPI)NonAf 104.24 Random Glucose 100 Calcium 9.2 Total Bilirubin 0.8 AST 158 H ALT 140 H Alkaline Phosphatase 126 H Total Protein 7.0 Albumin 3.6 Urine Color Dk yellow Urine Appearance Turbid Urine pH 6.0 Ur Specific [place] 1.027 Urine Protein Trace Urine Glucose (UA) Negative Urine Ketones Trace H Urine Blood Negative Urine Nitrite Negative Urine Bilirubin Negative Urine Urobilinogen 2.0 Ur Leukocyte Esterase Negative Syphilis Serology COVID-19 ([facility]) HIV Ag/Ab Combo Qual 01/16/20 01/16/20 08:03 08:10 WBC RBC Hgb Hct MCV MCH MCHC RDW Plt Count MPV PT with INR 11.10 INR 0.94 Sodium Potassium Chloride Carbon Dioxide Anion Gap BUN Creatinine Est GFR (CKD-EPI)AfAm Est GFR (CKD-EPI)NonAf Random Glucose Calcium Total Bilirubin AST 79 H ALT 96 H Alkaline Phosphatase 150 H Total Protein Albumin Urine Color Urine Appearance Urine pH Ur Specific [place] Urine Protein Urine Glucose (UA) Urine Ketones Urine Blood Urine Nitrite Urine Bilirubin Urine Urobilinogen Ur Leukocyte Esterase Syphilis Serology COVID-19 ([facility]ARTAH) HIV Ag/Ab Combo Qual Repeat liver enzymes has grossly decreased alert o x 3 nad oob ambulating with steady gait Assessment: 01/16/20 13:49 withdrawal sx elevated liver enzymes Plan: cont detox increase po fluids maintain safety
[2020-01-16] MEDS ORDERED: METOPROLOL TARTRATE 25 MG TABLET (FP) PO ONE (20:24)
--- NOTE | 2020-01-16 20:24 | PN ---
[facility] Progress Note Note: Vital Signs - 24 hr 01/16/20 01/16/20 01/16/20 05:31 09:50 13:30 Temperature 98.6 F Pulse Rate 68 85 79 Respiratory 18 20 18 Rate Blood Pressure 130/84 137/86 148/70 O2 Sat by Pulse 97 96 98 Oximetry (%) 01/16/20 16:30 Temperature 96.9 F L Pulse Rate 81 Respiratory 18 Rate Blood Pressure 157/102 H O2 Sat by Pulse Oximetry (%) called by nursing for elevated BP . Pt is asymptomatic P : Metoprolol 25 mg x once .
[2020-01-16] MEDS: hydrOXYzine PAMOATE 25 MG CAPSULE (FP) PO PRN (22:13)
[2020-01-16] MEDS: THIAMINE HCL 100 MG TABLET (FP) PO SCH (22:13)
[2020-01-16] MEDS: QUEtiapine FUMARATE 50 MG TABLET PO SCH (22:13)
[2020-01-16] MEDS: MELATONIN 5 MG TABLETS PO SCH (22:13)
[2020-01-16] MEDS: METHOCARBAMOL 500 MG TABLET PO PRN (22:13)
[2020-01-17] MEDS: NYSTATIN 500,000 UNITS/5 ML SUSPENSION PO SCH ×4 (00:30→17:43)
[2020-01-17] MEDS: chlordiazePOXIDE HCL 10 MG CAPSULE PO SCH ×2 (06:23→17:27)
[2020-01-17] MEDS: hydrOXYzine PAMOATE 25 MG CAPSULE (FP) PO PRN ×2 (10:11→21:36)
[2020-01-17] MEDS: PRENATAL VITAMINS W/ FOLIC ACID TABLET (FP) PO SCH (10:11)
[2020-01-17] MEDS: NICOTINE 21 MG/24 HOURS TOPICAL PATCH TD SCH (10:11)
--- NOTE | 2020-01-17 14:34 | PN ---
S CIWA - CIWA Score Nausea/Vomitin-No Nausea/No Vomiting Muscle Tremors: None Anxiety: 1-Mildly Anxious Agitation: 0-Normal Activity Paroxysmal Sweats: 1-Minimal Palms Moist Orientation: 0-Oriented Tacttile Disturbances: 0-None Auditory Disturbances: 0-None Visual Disturbances: 0-None Headache: 0-None Present CIWA-Ar Total Score: 2 [facility] COWS - Scale Resting Pulse: 0= SC 80 or Below Sweatin= No chills or Flushing Restless Observation: 0= Sits Still Pupil Size: 0= Normal to Room Light Bone or Joint Aches: 1= Mild Discomfort Runny Nose/ Eye Tearin= None GI Upset > 30mins: 0= None Tremor Observation of Outstretched Hands: 1= Tremor [place], Not Seen Yawning Observation: 0= None Anxiety or Irritability: 1=Feels Anxious/Irritable Goose Flesh Skin: 0=Smooth Skin COWS Score: 3 [facility] Progress Note (SOAP) Subjective: Pt seen dance-exercising in common area to [place] music. Reports he feels better slight anxiety. Objective: 01/17/20 14:33 Vital Signs - 24 hr 01/16/20 01/16/20 01/16/20 16:30 20:40 23:00 Temperature 96.9 F L 98.0 F Pulse Rate 81 79 71 Respiratory 18 17 Rate Blood Pressure 157/102 H 135/70 151/103 H O2 Sat by Pulse 96 Oximetry (%) 01/17/20 01/17/20 07:02 09:35 Temperature 98.3 F 97.5 F L Pulse Rate 65 72 Respiratory 20 20 Rate Blood Pressure 127/78 142/90 O2 Sat by Pulse 95 97 Oximetry (%) Laboratory Tests 01/13/20 01/14/20 01/14/20 23:05 08:00 08:00 WBC RBC Hgb Hct MCV MCH MCHC RDW Plt Count MPV PT with INR INR Sodium Potassium Chloride Carbon Dioxide Anion Gap BUN Creatinine Est GFR (CKD-EPI)AfAm Est GFR (CKD-EPI)NonAf Random Glucose Calcium Total Bilirubin AST ALT Alkaline Phosphatase Total Protein Albumin Urine Color Urine Appearance Urine pH Ur Specific [place] Urine Protein Urine Glucose (UA) Urine Ketones Urine Blood Urine Nitrite Urine Bilirubin Urine Urobilinogen Ur Leukocyte Esterase Syphilis Serology Non-reactive COVID-19 (MARTHA) Not detected HIV Ag/Ab Combo Qual Negative 01/14/20 01/14/20 01/14/20 08:00 08:00 15:20 WBC 4.8 RBC 4.68 Hgb 15.5 Hct 46.4 MCV 99.1 H MCH 33.1 MCHC 33.4 RDW 14.4 Plt Count 224 MPV 10.2 PT with INR INR Sodium 142 Potassium 3.7 Chloride 103 Carbon Dioxide 29 Anion Gap 9 BUN 7.2 Creatinine 0.9 Est GFR (CKD-EPI)AfAm 120.81 Est GFR (CKD-EPI)NonAf 104.24 Random Glucose 100 Calcium 9.2 Total Bilirubin 0.8 AST 158 H ALT 140 H Alkaline Phosphatase 126 H Total Protein 7.0 Albumin 3.6 Urine Color Dk yellow Urine Appearance Turbid Urine pH 6.0 Ur Specific [place] 1.027 Urine Protein Trace Urine Glucose (UA) Negative Urine Ketones Trace H Urine Blood Negative Urine Nitrite Negative Urine Bilirubin Negative Urine Urobilinogen 2.0 Ur Leukocyte Esterase Negative Syphilis Serology COVID-19 (MARTHA) HIV Ag/Ab Combo Qual 01/16/20 01/16/20 08:03 08:10 WBC RBC Hgb Hct MCV MCH MCHC RDW Plt Count MPV PT with INR 11.10 INR 0.94 Sodium Potassium Chloride Carbon Dioxide Anion Gap BUN Creatinine Est GFR (CKD-EPI)AfAm Est GFR (CKD-EPI)NonAf Random Glucose Calcium Total Bilirubin AST 79 H ALT 96 H Alkaline Phosphatase 150 H Total Protein Albumin Urine Color Urine Appearance Urine pH Ur Specific [place] Urine Protein Urine Glucose (UA) Urine Ketones Urine Blood Urine Nitrite Urine Bilirubin Urine Urobilinogen Ur Leukocyte Esterase Syphilis Serology COVID-19 (MARTHA) HIV Ag/Ab Combo Qual labs noted Assessment: 01/17/20 14:33 withdrawal sx Plan: cont detox increase po fluids maintain safety d/c in the morning if patient is stable.
[2020-01-17] MEDS: NICOTINE POLACRILEX 4 MG GUM BUC PRN (17:27)
[2020-01-17 20:42] VITALS: PULSE 71
[2020-01-17] MEDS: MELATONIN 5 MG TABLETS PO SCH (21:36)
[2020-01-17] MEDS: THIAMINE HCL 100 MG TABLET (FP) PO SCH (21:36)
[2020-01-17] MEDS: QUEtiapine FUMARATE 50 MG TABLET PO SCH (21:37)
[2020-01-18] MEDS ORDERED: chlordiazePOXIDE HCL 10 MG CAPSULE PO ONE (05:00)
[2020-01-18] MEDS: NYSTATIN 500,000 UNITS/5 ML SUSPENSION PO SCH ×2 (06:38)
[2020-01-18 07:04] VITALS: BP 136/103; TEMP 98.1
--- NOTE | 2020-01-18 12:02 | DS ---
[facility] Detox Discharge Summary Admission Date: 01/13/20 Discharge Date: 01/18/20 - History Present History: Alcohol Dependence, Cannabis Dependence, Cocaine Dependence Additional Comments: Pt is medically cleared and discharge today. Pt completed the detox protocol. Pt is encouraged to follow-up with an outpatient CD program and also to follow-up with his pmd which he verbalized understanding. Pt is alert and oriented x3 in no acute respiratory. Pertinent Past History: h/o HTN, copd, alcohol, cocaine, and cannabis use disorder. - Physical Exam Results Vital Signs: Vital Signs Temperature 98.1 F 01/18/20 07:00 Pulse Rate 71 01/18/20 07:00 Respiratory Rate 20 01/18/20 07:00 Blood Pressure 136/103 H 01/18/20 07:00 O2 Sat by Pulse Oximetry (%) 96 01/18/20 07:00 Vital Signs 01/18/20 07:00 Temperature 98.1 F Pulse Rate 71 Respiratory 20 Rate Blood Pressure 136/103 H O2 Sat by Pulse 96 Oximetry (%) Laboratory Last Values WBC 4.8 K/mm3 (4.0-10.0) 01/14/20 08:00 RBC 4.68 M/mm3 (4.00-5.60) 01/14/20 08:00 Hgb 15.5 GM/dL (11.7-16.9) 01/14/20 08:00 Hct 46.4 % (35.4-49) 01/14/20 08:00 MCV 99.1 fl (80-96) H 01/14/20 08:00 MCH 33.1 pg (25.7-33.7) 01/14/20 08:00 MCHC 33.4 g/dl (32.0-35.9) 01/14/20 08:00 RDW 14.4 % (11.9-15.9) 01/14/20 08:00 Plt Count 224 K/MM3 (134-434) 01/14/20 08:00 MPV 10.2 fl (7.5-11.1) 01/14/20 08:00 PT with INR 11.10 SEC (9.7-13.0) 01/16/20 08:03 INR 0.94 (0.83-1.09) 01/16/20 08:03 Sodium 142 mmol/L (136-145) 01/14/20 08:00 Potassium 3.7 mmol/L (3.5-5.1) 01/14/20 08:00 Chloride 103 mmol/L (98-107) 01/14/20 08:00 Carbon Dioxide 29 mmol/L (21-32) 01/14/20 08:00 Anion Gap 9 MMOL/L (8-16) 01/14/20 08:00 BUN 7.2 mg/dL (7-18) 01/14/20 08:00 Creatinine 0.9 mg/dL (0.55-1.3) 01/14/20 08:00 Est GFR (CKD-EPI)AfAm 120.81 01/14/20 08:00 Est GFR (CKD-EPI)NonAf 104.24 01/14/20 08:00 Random Glucose 100 mg/dL (74-106) 01/14/20 08:00 Calcium 9.2 mg/dL (8.5-10.1) 01/14/20 08:00 Total Bilirubin 0.8 mg/dL (0.2-1) 01/14/20 08:00 AST 79 U/L (15-37) H 01/16/20 08:10 ALT 96 U/L (13-61) H 01/16/20 08:10 Alkaline Phosphatase 150 U/L (45-117) H 01/16/20 08:10 Total Protein 7.0 g/dl (6.4-8.2) 01/14/20 08:00 Albumin 3.6 g/dl (3.4-5.0) 01/14/20 08:00 Urine Color Dk yellow 01/14/20 15:20 Urine Appearance Turbid 01/14/20 15:20 Urine pH 6.0 (5.0-8.0) 01/14/20 15:20 Ur Specific [place] 1.027 (1.010-1.035) 01/14/20 15:20 Urine Protein Trace (NEGATIVE) 01/14/20 15:20 Urine Glucose (UA) Negative (NEGATIVE) 01/14/20 15:20 Urine Ketones Trace (NEGATIVE) H 01/14/20 15:20 Urine Blood Negative (NEGATIVE) 01/14/20 15:20 Urine Nitrite Negative (NEGATIVE) 01/14/20 15:20 Urine Bilirubin Negative (NEGATIVE) 01/14/20 15:20 Urine Urobilinogen 2.0 mg/dL (0.2-1.0) 01/14/20 15:20 Ur Leukocyte Esterase Negative (NEGATIVE) 01/14/20 15:20 Syphilis Serology Non-reactive (NONREACTIVE) 01/14/20 08:00 COVID-19 (MARTHA) Not detected (Not Detected) 01/13/20 23:05 HIV Ag/Ab Combo Qual Negative (NEGATIVE) 01/14/20 08:00 Labs noted. Pertinent Admission Physical Exam Findings: Withdrawal symptoms. - Treatment Hospital Course: Detox Protocol Followed, Detoxed Safely, Responded well, Discharged Condition Good - Medication Discharge Medications: Ambulatory Orders Folic Acid - 1 mg PO DAILY 01/17/18 Multivitamin [One Daily] 1 each PO DAILY 01/17/18 Thiamine Mononitrate [Vitamin B-1] 100 mg PO DAILY 01/17/18 Buspirone HCl [Buspar -] 10 mg PO BID #60 tablet 01/18/18 Quetiapine Fumarate [Seroquel -] 100 mg PO HS #30 tablet 01/18/18 - Diagnosis (1) Alcohol dependence with uncomplicated withdrawal Status: Acute (2) Cannabis dependence Status: Acute (3) Cocaine dependence Status: Acute Qualifiers: Substance use status: uncomplicated Qualified Code(s): F14.20 - Cocaine dependence, uncomplicated (4) COPD (chronic obstructive pulmonary disease) Status: Chronic (5) HTN (hypertension) Status: Chronic Qualifiers: Hypertension type: essential hypertension Qualified Code(s): I10 - Essential (primary) hypertension (6) Nicotine dependence Status: Chronic Qualifiers: Nicotine product type: cigarettes Substance use status: in withdrawal Qualified Code(s): F17.213 - Nicotine dependence, cigarettes, with withdrawal - AMA Did Patient Leave Against Medical Advice: No
== END 2020-01-18 09:12 | disposition home or self-care (01) | DRG 774 ==
LOC: YASAS 20:38 → Y5N DETOX 22:49
PROVIDERS: ADMIT Allergy & Immunology; ATTEND Allergy & Immunology
PROC: HZ2ZZZZ Detoxification Services for Substance Abuse Treatment (ICD-10-PCS; principal; 2020-01-13)
DX: F10.230 Alcohol dependence with withdrawal, uncomplicated (principal); F14.20 Cocaine dependence, uncomplicated; F12.20 Cannabis dependence, uncomplicated; F17.213 Nicotine dependence, cigarettes, with withdrawal; F19.282 Other psychoactive substance dependence with psychoactive substance-induced sleep disorder; F10.282 Alcohol dependence with alcohol-induced sleep disorder; F31.9 Bipolar disorder, unspecified; I10 Essential (primary) hypertension; J44.9 Chronic obstructive pulmonary disease, unspecified; R63.8 Other symptoms and signs concerning food and fluid intake; R74.0 Nonspecific elevation of levels of transaminase and lactic acid dehydrogenase [LDH]; M25.551 Pain in right hip; G89.29 Other chronic pain; S00.83XD Contusion of other part of head, subsequent encounter; Y04.2XXD Assault by strike against or bumped into by another person, subsequent encounter; Y07.11 Biological father, perpetrator of maltreatment and neglect
CPT/HCPCS: 36415; 71046-TC-FY; 80053; 81003; 84075; 84450; 84460; 85027; 85610; 86780; 87389; 93005; 93010; Q0162; U0003

== ENCOUNTER 2020-02-10 11:39 | Inpatient (IN) | payer OTHER ==
--- NOTE | 2020-02-10 10:09 | HP ---
[facility] Rehab Assess/Revision - Admission History Admitted to Rehab from: [facility] Date of Admission to Rehab: 02/10/20 - Findings Detox History & Physical reviewed: Yes Concur with findings: Yes Comments/Additional Findings: tranferred from detox to rehab admission as per protocol Inpatient Rehab Admission - Rehab Decision to Admit Inpatient rehab admission?: Yes - Initial Determination Are CD services needed?: Yes Free of communicable disease: Yes Not in need of hospitalization: Yes - Rehab Admission Criteria Previous failed treatment: Yes Poor recovery environment: Yes Comorbidities: Yes Lacks judgement: Yes Patient is meeting Inpatient Rehab admission criteria:: Yes
[~2020-02-10 11:39] MED LIST: LOPERAMIDE HCL 2 MG CAPSULE PO PRN; MAG HYDROX/AL HYDROX/SIMETH 30 ML UNIT-DOSE CUP PO PRN; MAGNESIUM CITRATE 300 ML BOTTLE PO PRN; MAGNESIUM HYDROX 2400MG/30ML ORAL SUSPENSION 30 ML CUP PO PRN; P-EPHED 60MG/TRIPROLIDI 2.5MG TABLET PO PRN; guaiFENesin 200 MG/10 ML 10 ML UNIT-DOSE CUPS PO PRN
--- NOTE | 2020-02-10 12:25 | CONSULT ---
[facility] Psychiatric Consult - Data Date of interview: 02/10/20 Admission source: 3N Identifying data: Mr Gonzalez is a 45 years old male, father of 3 childre,
[2020-02-10] MEDS: THIAMINE HCL 100 MG TABLET (FP) PO SCH (21:35)
[2020-02-10] MEDS: hydrOXYzine PAMOATE 25 MG CAPSULE (FP) PO PRN (21:36)
[2020-02-10] MEDS: IBUPROFEN 400 MG TABLET (FP) PO PRN (21:36)
[2020-02-10] MEDS: MELATONIN 5 MG TABLETS PO SCH (21:36)
[2020-02-10] MEDS: QUEtiapine FUMARATE 50 MG TABLET PO SCH (21:36)
[2020-02-11] MEDS: NICOTINE 7 MG/24 HOURS TOPICAL PATCH TD SCH (09:52)
[2020-02-11] MEDS: hydrOXYzine PAMOATE 25 MG CAPSULE (FP) PO PRN ×2 (09:53→21:22)
[2020-02-11] MEDS: amLODIPine BESYLATE 10 MG TABLET (FP) PO SCH (09:53)
[2020-02-11] MEDS: PRENATAL VITAMINS W/ FOLIC ACID TABLET (FP) PO SCH (09:53)
[2020-02-11] MEDS ORDERED: amLODIPine BESYLATE 10 MG TABLET (FP) PO SCH (10:00)
[2020-02-11] MEDS: MELATONIN 5 MG TABLETS PO SCH (21:22)
[2020-02-11] MEDS: IBUPROFEN 400 MG TABLET (FP) PO PRN (21:22)
[2020-02-11] MEDS: THIAMINE HCL 100 MG TABLET (FP) PO SCH (21:22)
[2020-02-11] MEDS: QUEtiapine FUMARATE 50 MG TABLET PO SCH (21:22)
[2020-02-12] MEDS: NICOTINE 7 MG/24 HOURS TOPICAL PATCH TD SCH (10:14)
[2020-02-12] MEDS: amLODIPine BESYLATE 10 MG TABLET (FP) PO SCH (10:14)
[2020-02-12] MEDS: PRENATAL VITAMINS W/ FOLIC ACID TABLET (FP) PO SCH (10:14)
[2020-02-12] MEDS: hydrOXYzine PAMOATE 25 MG CAPSULE (FP) PO PRN ×2 (10:16→21:22)
[2020-02-12] MEDS: THIAMINE HCL 100 MG TABLET (FP) PO SCH (21:22)
[2020-02-12] MEDS: QUEtiapine FUMARATE 50 MG TABLET PO SCH (21:22)
[2020-02-12] MEDS: MELATONIN 5 MG TABLETS PO SCH (21:22)
[2020-02-12] MEDS: IBUPROFEN 400 MG TABLET (FP) PO PRN (21:23)
[2020-02-13] MEDS: NICOTINE 7 MG/24 HOURS TOPICAL PATCH TD SCH (09:48)
[2020-02-13] MEDS: hydrOXYzine PAMOATE 25 MG CAPSULE (FP) PO PRN ×3 (09:50→21:29)
[2020-02-13] MEDS: PRENATAL VITAMINS W/ FOLIC ACID TABLET (FP) PO SCH (09:50)
[2020-02-13] MEDS: IBUPROFEN 400 MG TABLET (FP) PO PRN ×2 (09:50→17:53)
[2020-02-13] MEDS: amLODIPine BESYLATE 10 MG TABLET (FP) PO SCH (09:50)
[2020-02-13] MEDS: NICOTINE 21 MG/24 HOURS TOPICAL PATCH TD SCH (12:26)
[2020-02-13] MEDS: THIAMINE HCL 100 MG TABLET (FP) PO SCH (21:29)
[2020-02-13] MEDS: QUEtiapine FUMARATE 50 MG TABLET PO SCH (21:29)
[2020-02-13] MEDS: MELATONIN 5 MG TABLETS PO SCH (21:29)
[2020-02-13] MEDS: ACETAMINOPHEN 325 MG TABLET (FP) PO PRN (21:31)
[2020-02-14] MEDS: amLODIPine BESYLATE 10 MG TABLET (FP) PO SCH (10:16)
[2020-02-14] MEDS: NICOTINE 21 MG/24 HOURS TOPICAL PATCH TD SCH (10:17)
[2020-02-14] MEDS: PRENATAL VITAMINS W/ FOLIC ACID TABLET (FP) PO SCH (10:17)
[2020-02-14] MEDS: IBUPROFEN 400 MG TABLET (FP) PO PRN ×2 (10:18→19:07)
[2020-02-14] MEDS: hydrOXYzine PAMOATE 25 MG CAPSULE (FP) PO PRN ×2 (10:19→19:07)
[2020-02-14] MEDS: QUEtiapine FUMARATE 50 MG TABLET PO SCH (21:40)
[2020-02-14] MEDS: THIAMINE HCL 100 MG TABLET (FP) PO SCH (21:40)
[2020-02-14] MEDS: MELATONIN 5 MG TABLETS PO SCH (21:40)
[2020-02-15] MEDS: amLODIPine BESYLATE 10 MG TABLET (FP) PO SCH (09:39)
[2020-02-15] MEDS: hydrOXYzine PAMOATE 25 MG CAPSULE (FP) PO PRN ×3 (09:39→19:39)
[2020-02-15] MEDS: IBUPROFEN 400 MG TABLET (FP) PO PRN ×2 (09:39→18:39)
[2020-02-15] MEDS: PRENATAL VITAMINS W/ FOLIC ACID TABLET (FP) PO SCH (09:40)
[2020-02-15] MEDS: NICOTINE 21 MG/24 HOURS TOPICAL PATCH TD SCH (09:40)
[2020-02-15] MEDS: ACETAMINOPHEN 325 MG TABLET (FP) PO PRN (14:01)
--- NOTE | 2020-02-15 17:04 | CONSULT ---
[facility] Psychiatric Consult - Data Date of interview: 02/15/20 Admission source: [facility] Identifying data: Detoxification completed at [address] [place] [address]. Patient is currently in rehabilitation treatment at [address] DEENA issues : opiates, marihuana/K2, alcohol, nicotine. 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 Substance Abuse History: Discussed with the patient. DEENA profile as follows : Alcohol. Substance amount: 1 gallon. Frequency of use: Daily. Substance route: Oral. Date of Last Use: 02/05/20 (12:00PM) First used alcohol 7 years old. Cocaine- Powder. Substance amount: 1 gram. Frequency of use: Less than 3 times per week. Substance route: Inhalation (ex: sniffing or snorting). Date of Last Use: 02/01/20 First used at 23 years old. Nicotine. Substance amount: 1-2 packs. Frequency of use: Daily. Substance route: Smoking. Date of Last Use: 02/05/20. First used at 14 years old. Opiates. Substance amount: 30mg. Frequency of use: 2-3 times per week. Substance route: PO. Date of Last Use: yesterday. First used 33 years old. - Last Treatment. Date of last treatment: 01/12-01/18/20. Treatment type: Substance Use Disorder (DEENA). Where was last treatment: Detox. History Source: Patient. Limitations to Obtaining History: No Limitations. - Smoking History. Smoking history: Current every day smoker. Have you smoked in the past 12 months: Yes. Aproximately how many cigarettes per day: 30. - Alcohol/Substance Use. Hx Alcohol Use: Yes Medical History: Medical profile is remarkable for COPD and hypertension. No known allergies. Psychiatric History: Patient denies history of psychiatric hospitalizations. He is known to the [facility] outpatient program. Mr Gonzalez explains that he dropped out of the program about two years ago. Has received the diagnosis of bipolar disorder and managed in the past with quetiapine (for chronic insomnia). Patient has been lost to follow-up for several months. Denies history of suicide attempts. Physical/Sexual Abuse/Trauma History: Current stressor : marital discord and se paration from his children ( has secured an order of protection). Additional Comment: Urine drug screen results: THC-Marijuana, ALVAREZ-Cocaine. Noted. Mental Status Exam - Mental Status Exam Alert and Oriented to: Time, Place, Person Cognitive Function: Good Patient Appearance: Well Groomed (obese) Mood: Hopeful, Euthymic Affect: Appropriate, Normal Range Patient Behavior: Appropriate, Cooperative (friendly) Speech Pattern: Clear, Appropriate Voice Loudness: Normal Thought Process: Intact, Goal Oriented Thought Disorder: Not Present Hallucinations: Denies Suicidal Ideation: Denies Homicidal Ideation: Denies Insight/Judgement: Fair Sleep: Poorly, Difficulty falling asleep (wants increased dose of seroquel) Appetite: Good Gait/Station: Normal Psychiatric Findings - Problem List ([place] 1, 2,3) (1) Alcohol dependence Current Visit: Yes Status: Chronic (2) Cannabis dependence Current Visit: Yes Status: Chronic (3) Cocaine dependence Current Visit: Yes Status: Chronic Qualifiers: Substance use status: uncomplicated Qualified Code(s): F14.20 - Cocaine dependence, uncomplicated (4) Nicotine dependence Current Visit: Yes Status: Chronic Qualifiers: Nicotine product type: cigarettes Substance use status: in withdrawal Qualified Code(s): F17.213 - Nicotine dependence, cigarettes, with withdrawal (5) Insomnia Current Visit: Yes Status: Chronic Qualifiers: Insomnia type: alcohol-induced Qualified Code(s): F10.982 - Alcohol use, unspecified with alcohol-induced sleep disorder - Initial Treatment Plan Initial Treatment Plan: Records ([facility]) revisited. Psychoeducation. Sleep hygiene. Support. Motivational counseling. Seroquel is increased to 100 mg po hs at patient's request. Consent granted after discussion of side effects/benefits of the medication. Observation.
[2020-02-15] MEDS: QUEtiapine FUMARATE 100 MG TABLET (FP) PO SCH (21:56)
[2020-02-15] MEDS: THIAMINE HCL 100 MG TABLET (FP) PO SCH (21:56)
[2020-02-15] MEDS: MELATONIN 5 MG TABLETS PO SCH (21:56)
[2020-02-16] MEDS: hydrOXYzine PAMOATE 25 MG CAPSULE (FP) PO PRN ×3 (08:52→17:57)
[2020-02-16] MEDS: IBUPROFEN 400 MG TABLET (FP) PO PRN ×2 (08:53→17:55)
[2020-02-16] MEDS: NICOTINE 21 MG/24 HOURS TOPICAL PATCH TD SCH (09:28)
[2020-02-16] MEDS: amLODIPine BESYLATE 10 MG TABLET (FP) PO SCH (09:28)
[2020-02-16] MEDS: PRENATAL VITAMINS W/ FOLIC ACID TABLET (FP) PO SCH (09:28)
[2020-02-16] MEDS: ACETAMINOPHEN 325 MG TABLET (FP) PO PRN ×2 (13:10→22:15)
[2020-02-16] MEDS: MELATONIN 5 MG TABLETS PO SCH (22:12)
[2020-02-16] MEDS: THIAMINE HCL 100 MG TABLET (FP) PO SCH (22:13)
[2020-02-16] MEDS: QUEtiapine FUMARATE 100 MG TABLET (FP) PO SCH (22:13)
[2020-02-17] MEDS: IBUPROFEN 400 MG TABLET (FP) PO PRN ×2 (06:13→14:25)
[2020-02-17] MEDS: hydrOXYzine PAMOATE 25 MG CAPSULE (FP) PO PRN ×5 (06:13→23:04)
[2020-02-17] MEDS: PRENATAL VITAMINS W/ FOLIC ACID TABLET (FP) PO SCH (10:22)
[2020-02-17] MEDS: amLODIPine BESYLATE 10 MG TABLET (FP) PO SCH (10:23)
[2020-02-17] MEDS: ACETAMINOPHEN 325 MG TABLET (FP) PO PRN ×2 (10:26→18:54)
[2020-02-17] MEDS: NICOTINE 21 MG/24 HOURS TOPICAL PATCH TD SCH (10:30)
[2020-02-17] MEDS: METHYL SALICYLATE/MENTHOL OINT 30 GM TUBE TP SCH ×2 (11:14→22:02)
[2020-02-17] MEDS: ACAMPROSATE CALCIUM 333 MG TABLET.DR PO SCH ×2 (13:29→21:45)
[2020-02-17] MEDS: MELATONIN 5 MG TABLETS PO SCH (21:45)
[2020-02-17] MEDS: THIAMINE HCL 100 MG TABLET (FP) PO SCH (21:46)
[2020-02-17] MEDS: QUEtiapine FUMARATE 100 MG TABLET (FP) PO SCH (21:47)
[2020-02-18] MEDS: hydrOXYzine PAMOATE 25 MG CAPSULE (FP) PO PRN ×4 (04:26→21:19)
[2020-02-18] MEDS ORDERED: PT OWN MED DRAWER 7, Y5N ONE ×2 (05:51→07:23)
[2020-02-18] MEDS: ACAMPROSATE CALCIUM 333 MG TABLET.DR PO SCH ×3 (07:11→21:20)
[2020-02-18] MEDS: ACETAMINOPHEN 325 MG TABLET (FP) PO PRN ×2 (09:00→21:18)
[2020-02-18] MEDS: NICOTINE 21 MG/24 HOURS TOPICAL PATCH TD SCH (10:14)
[2020-02-18] MEDS: METHYL SALICYLATE/MENTHOL OINT 30 GM TUBE TP SCH ×2 (10:15→21:19)
[2020-02-18] MEDS: amLODIPine BESYLATE 10 MG TABLET (FP) PO SCH (10:15)
[2020-02-18] MEDS: PRENATAL VITAMINS W/ FOLIC ACID TABLET (FP) PO SCH (10:15)
[2020-02-18] MEDS: IBUPROFEN 400 MG TABLET (FP) PO PRN (15:13)
[2020-02-18] MEDS: NICOTINE POLACRILEX 2 MG GUM BUC PRN (15:14)
[2020-02-18] MEDS: MELATONIN 5 MG TABLETS PO SCH (21:17)
[2020-02-18] MEDS: THIAMINE HCL 100 MG TABLET (FP) PO SCH (21:17)
[2020-02-18] MEDS: QUEtiapine FUMARATE 100 MG TABLET (FP) PO SCH (21:19)
[2020-02-19] MEDS: hydrOXYzine PAMOATE 25 MG CAPSULE (FP) PO PRN ×4 (06:20→21:10)
[2020-02-19] MEDS: IBUPROFEN 400 MG TABLET (FP) PO PRN ×2 (06:20→21:12)
[2020-02-19] MEDS: NICOTINE POLACRILEX 2 MG GUM BUC PRN ×3 (06:22→14:42)
[2020-02-19] MEDS: ACAMPROSATE CALCIUM 333 MG TABLET.DR PO SCH ×3 (06:22→21:10)
[2020-02-19] MEDS: amLODIPine BESYLATE 10 MG TABLET (FP) PO SCH (10:20)
[2020-02-19] MEDS: NICOTINE 21 MG/24 HOURS TOPICAL PATCH TD SCH (10:20)
[2020-02-19] MEDS: PRENATAL VITAMINS W/ FOLIC ACID TABLET (FP) PO SCH (10:20)
[2020-02-19] MEDS: ACETAMINOPHEN 325 MG TABLET (FP) PO PRN ×2 (10:21→14:41)
[2020-02-19] MEDS: METHYL SALICYLATE/MENTHOL OINT 30 GM TUBE TP SCH ×2 (10:22→21:13)
[2020-02-19] MEDS: MELATONIN 5 MG TABLETS PO SCH (21:10)
[2020-02-19] MEDS: QUEtiapine FUMARATE 100 MG TABLET (FP) PO SCH (21:10)
[2020-02-19] MEDS: THIAMINE HCL 100 MG TABLET (FP) PO SCH (21:10)
[2020-02-20] MEDS: IBUPROFEN 400 MG TABLET (FP) PO PRN ×2 (03:57→10:43)
[2020-02-20] MEDS: hydrOXYzine PAMOATE 25 MG CAPSULE (FP) PO PRN ×4 (04:00→21:44)
[2020-02-20] MEDS: ACAMPROSATE CALCIUM 333 MG TABLET.DR PO SCH ×3 (06:40→21:45)
[2020-02-20] MEDS: NICOTINE POLACRILEX 2 MG GUM BUC PRN ×5 (06:42→21:46)
[2020-02-20] MEDS: amLODIPine BESYLATE 10 MG TABLET (FP) PO SCH (10:40)
[2020-02-20] MEDS: PRENATAL VITAMINS W/ FOLIC ACID TABLET (FP) PO SCH (10:40)
[2020-02-20] MEDS: NICOTINE 21 MG/24 HOURS TOPICAL PATCH TD SCH (10:40)
[2020-02-20] MEDS: METHYL SALICYLATE/MENTHOL OINT 30 GM TUBE TP SCH ×2 (10:41→21:45)
[2020-02-20] MEDS: ACETAMINOPHEN 325 MG TABLET (FP) PO PRN (14:53)
[2020-02-20] MEDS: QUEtiapine FUMARATE 100 MG TABLET (FP) PO SCH (21:44)
[2020-02-20] MEDS: MELATONIN 5 MG TABLETS PO SCH (21:44)
[2020-02-20] MEDS: THIAMINE HCL 100 MG TABLET (FP) PO SCH (21:44)
[2020-02-21] MEDS: IBUPROFEN 400 MG TABLET (FP) PO PRN ×3 (06:06→21:36)
[2020-02-21] MEDS: hydrOXYzine PAMOATE 25 MG CAPSULE (FP) PO PRN ×4 (06:06→21:38)
[2020-02-21] MEDS: ACAMPROSATE CALCIUM 333 MG TABLET.DR PO SCH ×3 (06:07→21:37)
[2020-02-21] MEDS: NICOTINE POLACRILEX 2 MG GUM BUC PRN ×4 (06:07→21:37)
[2020-02-21] MEDS: PRENATAL VITAMINS W/ FOLIC ACID TABLET (FP) PO SCH (10:32)
[2020-02-21] MEDS: ACETAMINOPHEN 325 MG TABLET (FP) PO PRN (10:32)
[2020-02-21] MEDS: amLODIPine BESYLATE 10 MG TABLET (FP) PO SCH (10:32)
[2020-02-21] MEDS: NICOTINE 21 MG/24 HOURS TOPICAL PATCH TD SCH (10:33)
[2020-02-21] MEDS: METHYL SALICYLATE/MENTHOL OINT 30 GM TUBE TP SCH ×3 (10:33→21:37)
[2020-02-21] MEDS: QUEtiapine FUMARATE 100 MG TABLET (FP) PO SCH (21:36)
[2020-02-21] MEDS: THIAMINE HCL 100 MG TABLET (FP) PO SCH (21:36)
[2020-02-21] MEDS: MELATONIN 5 MG TABLETS PO SCH (21:37)
[2020-02-22] MEDS: ACAMPROSATE CALCIUM 333 MG TABLET.DR PO SCH ×3 (06:13→21:22)
[2020-02-22] MEDS: hydrOXYzine PAMOATE 25 MG CAPSULE (FP) PO PRN ×4 (06:13→21:21)
[2020-02-22] MEDS: IBUPROFEN 400 MG TABLET (FP) PO PRN ×2 (06:13→18:12)
[2020-02-22] MEDS: ACETAMINOPHEN 325 MG TABLET (FP) PO PRN ×2 (10:27→21:20)
[2020-02-22] MEDS: amLODIPine BESYLATE 10 MG TABLET (FP) PO SCH (10:27)
[2020-02-22] MEDS: PRENATAL VITAMINS W/ FOLIC ACID TABLET (FP) PO SCH (10:27)
[2020-02-22] MEDS: NICOTINE 21 MG/24 HOURS TOPICAL PATCH TD SCH (10:28)
[2020-02-22] MEDS: METHYL SALICYLATE/MENTHOL OINT 30 GM TUBE TP SCH ×2 (10:28→21:22)
[2020-02-22] MEDS: NICOTINE POLACRILEX 2 MG GUM BUC PRN ×4 (10:30→21:20)
[2020-02-22] MEDS: THIAMINE HCL 100 MG TABLET (FP) PO SCH (21:21)
[2020-02-22] MEDS: MELATONIN 5 MG TABLETS PO SCH (21:21)
[2020-02-22] MEDS: QUEtiapine FUMARATE 100 MG TABLET (FP) PO SCH (21:21)
[2020-02-23] MEDS: NICOTINE POLACRILEX 2 MG GUM BUC PRN ×6 (06:32→21:31)
[2020-02-23] MEDS: IBUPROFEN 400 MG TABLET (FP) PO PRN ×2 (06:32→15:47)
[2020-02-23] MEDS: hydrOXYzine PAMOATE 25 MG CAPSULE (FP) PO PRN ×4 (06:32→21:29)
[2020-02-23] MEDS: ACAMPROSATE CALCIUM 333 MG TABLET.DR PO SCH ×3 (06:33→21:30)
[2020-02-23] MEDS: ACETAMINOPHEN 325 MG TABLET (FP) PO PRN ×2 (10:02→21:29)
[2020-02-23] MEDS: amLODIPine BESYLATE 10 MG TABLET (FP) PO SCH (10:04)
[2020-02-23] MEDS: NICOTINE 21 MG/24 HOURS TOPICAL PATCH TD SCH (10:04)
[2020-02-23] MEDS: METHYL SALICYLATE/MENTHOL OINT 30 GM TUBE TP SCH ×2 (10:04→21:30)
[2020-02-23] MEDS: PRENATAL VITAMINS W/ FOLIC ACID TABLET (FP) PO SCH (10:05)
--- NOTE | 2020-02-23 13:14 | PN ---
S Progress Note Note: Psychiatric nurse practitioner note: Patient scheduled for discharge tomorrow morning. A 30 day prescription of Seroquel 100mg was electronically sent to [facility] at [address] [place] [address].
[2020-02-23] MEDS: QUEtiapine FUMARATE 100 MG TABLET (FP) PO SCH (21:29)
[2020-02-23] MEDS: THIAMINE HCL 100 MG TABLET (FP) PO SCH (21:29)
[2020-02-23] MEDS: MELATONIN 5 MG TABLETS PO SCH (21:30)
[2020-02-24] MEDS: IBUPROFEN 400 MG TABLET (FP) PO PRN (06:42)
[2020-02-24] MEDS: ACAMPROSATE CALCIUM 333 MG TABLET.DR PO SCH (06:42)
[2020-02-24] MEDS: hydrOXYzine PAMOATE 25 MG CAPSULE (FP) PO PRN (06:42)
[2020-02-24] MEDS: NICOTINE POLACRILEX 2 MG GUM BUC PRN ×2 (06:44→10:01)
[2020-02-24 07:30] VITALS: BP 123/69; PULSE 99; TEMP 98.1
--- NOTE | 2020-02-24 08:37 | DS ---
[facility] Rehab Discharge Summary - [facility] Rehab Discharge Summary Admission Date: 02/10/20 Discharge Date: 02/24/20 - History Present History: Alcohol dependence, Cannabis dependence, Cocaine dependence Pertinent Past History: HTN Asthma(no current med) COPD(no current med) Insomnia - Discharge Physical Exam Vital Signs: Vital Signs Temperature 98.1 F 02/24/20 07:25 Pulse Rate 99 H 02/24/20 07:25 Respiratory Rate 18 02/24/20 07:25 Blood Pressure 123/69 02/24/20 07:25 O2 Sat by Pulse Oximetry (%) 96 02/24/20 07:25 Alert o x 3 nad oob ambulating with steady gait cardiac:s1 s2, rrr lungs:ctab abdomen:+++fatty,+bs,nt,nd extremities:no edema,Tattoos both LEs; skin intact Pertinent Admission Physical Exam Findings: Unremarkable from detox admission - Treatment Discharge Condition: Discharge condition good Hospital Course: Pt accepted CD referral to [facility] - Medication Discharge Medications: Ambulatory Orders Multivitamin [One Daily] 1 each PO DAILY 01/17/18 Thiamine Mononitrate [Vitamin B-1] 100 mg PO DAILY 01/17/18 Amlodipine Besylate [Norvasc -] 10 mg PO DAILY #30 tablet 02/21/20 Quetiapine Fumarate [Seroquel -] 100 mg PO HS #30 tablet 02/23/20 - Medication-Assisted Treatment (MAT) Medication-Assisted Treatment (MAT): No - Discharge Instructions Diet, activity, other medical instructions: Diet:HEAVEN Activity: OOB ad tamika Other medical instructions:Follow up with Aftercare as scheduled at [facility] F/u with your primary care provider at [facility] for medical management - Diagnosis (1) Alcohol dependence Status: Chronic (2) HTN (hypertension) Status: Chronic Qualifiers: Hypertension type: essential hypertension Qualified Code(s): I10 - Essential (primary) hypertension (3) Nicotine dependence Status: Chronic Qualifiers: Nicotine product type: cigarettes Substance use status: in withdrawal Qualified Code(s): F17.213 - Nicotine dependence, cigarettes, with withdrawal - Follow-up Referral Minutes to complete discharge: 20 - AMA Did Patient Leave Against Medical Advice: No Additional Comments: Courtesy Rx for Norvasc 10 mg po daily electronically 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
[2020-02-24] MEDS: amLODIPine BESYLATE 10 MG TABLET (FP) PO SCH (09:59)
[2020-02-24] MEDS: PRENATAL VITAMINS W/ FOLIC ACID TABLET (FP) PO SCH (09:59)
[2020-02-24] MEDS: ACETAMINOPHEN 325 MG TABLET (FP) PO PRN (10:00)
[2020-02-24] MEDS: METHYL SALICYLATE/MENTHOL OINT 30 GM TUBE TP SCH (10:02)
[2020-02-24] MEDS: NICOTINE 21 MG/24 HOURS TOPICAL PATCH TD SCH (10:02)
== END 2020-02-24 11:19 | disposition home or self-care (01) | DRG 772 ==
LOC: YASAS 11:39 → Y3E 11:41 → Y5N 02-18 14:40
PROVIDERS: ADMIT Allergy & Immunology; ATTEND Allergy & Immunology
PROC: HZ42ZZZ Group Counseling for Substance Abuse Treatment, Cognitive-Behavioral (ICD-10-PCS; principal; 2020-02-10)
DX: F10.20 Alcohol dependence, uncomplicated (principal); F11.20 Opioid dependence, uncomplicated; F14.20 Cocaine dependence, uncomplicated; F12.20 Cannabis dependence, uncomplicated; F17.210 Nicotine dependence, cigarettes, uncomplicated; F10.982 Alcohol use, unspecified with alcohol-induced sleep disorder; I10 Essential (primary) hypertension; J44.9 Chronic obstructive pulmonary disease, unspecified

== ENCOUNTER 2020-09-04 18:10 | Observation (INO) | payer OTHER ==
[2020-09-04 19:26] VITALS: BMI 37.8
[2020-09-04 20:21] LABS: BASO % 1.2 % (0-2.0); EOS % 0.9 % (0-4.5); HEMATOCRIT 41.1 % (35.4-49); HEMOGLOBIN 14.2 GM/dL (11.7-16.9); LYMPH % 20.6 % (8-40); MCH 32.8 pg (25.7-33.7); MCHC 34.5 g/dl (32.0-35.9); MEAN PLT VOLUME 9.6 fl (7.5-11.1); MONO % 8.5 % (3.8-10.2); NEUT % 68.8 % (42.8-82.8); PLATELET COUNT 277 K/MM3 (134-434); RBC 4.32 M/mm3 (4.00-5.60); RDW 13.8 % (11.9-15.9); WHITE BLOOD COUNT 7.4 K/mm3 (4.0-10.0)
[2020-09-04 20:52] LABS: CHLORIDE 100 mmol/L (98-107); SODIUM 121 mmol/L (136-145)
[2020-09-04 21:49] LABS: ANION GAP -5 MMOL/L (8-16); BLOOD UREA NITROGEN 6.5 mg/dL (7-18); CO2 25 mmol/L (21-32); CREATININE 0.9 mg/dL (0.55-1.3); GLUCOSE,RANDOM 88 mg/dL (74-106); MAGNESIUM 2.4 mg/dL (1.8-2.4)
[2020-09-04] MEDS ORDERED: ASPIRIN 81 MG CHEWABLE TABLETS PO ONE (21:50)
[2020-09-04 21:51] LABS: BILIRUBIN,TOTAL < 0.1 mg/dL (0.2-1)
[2020-09-04 21:55] LABS: POTASSIUM > 10.0 mmol/L (3.5-5.1)
[2020-09-04] MEDS ORDERED: CALCIUM GLUCONATE 10% - 1,000 MG/10 ML VIAL IVPB ONE (22:01)
[2020-09-04] MEDS ORDERED: CALCIUM GLUC IN NACL, ISO-OSM 1 GM/50 ML BAG IVPB ONE (22:39)
[2020-09-04] MEDS ORDERED: ASPIRIN 81 MG CHEWABLE TABLETS ONE (22:39)
[2020-09-04 22:57] LABS: POTASSIUM 4.1 mmol/L (3.5-5.1)
[2020-09-04 22:59] LABS: CALCIUM 8.4 mg/dL (8.5-10.1)
[2020-09-04 23:00] LABS: ALBUMIN 3.4 g/dl (3.4-5.0); BLOOD UREA NITROGEN 6.3 mg/dL (7-18)
[2020-09-04 23:03] LABS: CREATININE 0.7 mg/dL (0.55-1.3)
[2020-09-04 23:05] LABS: BILIRUBIN,TOTAL 0.6 mg/dL (0.2-1); TOT PROT 7.2 g/dl (6.4-8.2)
[2020-09-05] MEDS ORDERED: LORazepam 1 MG TABLET PO PRN (03:43)
[2020-09-05] MEDS ORDERED: LORazepam 1 MG TABLET ONE ×5 (04:34→22:24)
[2020-09-05] MEDS: LORazepam 1 MG TABLET PO SCH ×4 (04:39→22:41)
[2020-09-05] MEDS ORDERED: FOLIC ACID INJECTION - 1 MG, THIAMINE HCL 100 MG, MULTIVIT INJECTION ADULT 10 ML in SOD... IVPB ONE (04:45)
[2020-09-05 08:25] LABS: BASO % 0.6 % (0-2.0); EOS % 1.3 % (0-4.5); HEMATOCRIT 40.7 % (35.4-49); MCHC 34.3 g/dl (32.0-35.9); MEAN CELL VOLUME 96.3 fl (80-96); MEAN PLT VOLUME 9.2 fl (7.5-11.1); MONO % 9.6 % (3.8-10.2); NEUT % 59.5 % (42.8-82.8); PLATELET COUNT 235 K/MM3 (134-434); RBC 4.23 M/mm3 (4.00-5.60); WHITE BLOOD COUNT 6.4 K/mm3 (4.0-10.0)
[2020-09-05 09:04] LABS: POTASSIUM 3.6 mmol/L (3.5-5.1)
[2020-09-05 09:21] LABS: ALBUMIN 3.3 g/dl (3.4-5.0); BLOOD UREA NITROGEN 7.6 mg/dL (7-18); CALCIUM 8.3 mg/dL (8.5-10.1); MAGNESIUM 1.7 mg/dL (1.8-2.4)
[2020-09-05 09:23] LABS: CREATININE 0.7 mg/dL (0.55-1.3)
[2020-09-05 09:25] LABS: BILIRUBIN,TOTAL 0.9 mg/dL (0.2-1); TOT PROT 6.7 g/dl (6.4-8.2)
[2020-09-05] MEDS ORDERED: THIAMINE HCL 200 MG/2 ML VIAL IVPB SCH (10:00)
[2020-09-05] MEDS ORDERED: THIAMINE HCL 200 MG/2 ML VIAL ONE (11:03)
[2020-09-05] MEDS ORDERED: FOLIC ACID 1 MG TABLET (FP) ONE (11:03)
[2020-09-05] MEDS ORDERED: ENOXAPARIN NA (PORCINE) 40 MG/0.4 ML DISP.SYRIN SQ ONE (11:04)
[2020-09-05] MEDS: FOLIC ACID 1 MG TABLET (FP) PO SCH (11:25)
[2020-09-05] MEDS: ENOXAPARIN NA (PORCINE) 40 MG/0.4 ML DISP.SYRIN SQ SCH (11:25)
[2020-09-06] MEDS ORDERED: LORazepam 1 MG TABLET ONE ×4 (05:25→18:35)
[2020-09-06] MEDS: LORazepam 1 MG TABLET PO SCH ×4 (05:28→22:15)
[2020-09-06 07:45] LABS: ALBUMIN 3.4 g/dl (3.4-5.0)
[2020-09-06 07:48] LABS: BILIRUBIN,DIRECT 0.5 mg/dL (0.0-0.2)
[2020-09-06 07:50] LABS: BILIRUBIN,TOTAL 1.9 mg/dL (0.2-1); TOT PROT 6.8 g/dl (6.4-8.2)
[2020-09-06] MEDS ORDERED: THIAMINE HCL 100 MG TABLET (FP) ONE (09:35)
[2020-09-06] MEDS ORDERED: amLODIPine BESYLATE 5 MG TABLET (FP) ONE (09:35)
[2020-09-06] MEDS ORDERED: ENOXAPARIN NA (PORCINE) 40 MG/0.4 ML DISP.SYRIN SQ ONE (09:36)
[2020-09-06] MEDS ORDERED: FOLIC ACID 1 MG TABLET (FP) ONE (09:36)
[2020-09-06] MEDS: ENOXAPARIN NA (PORCINE) 40 MG/0.4 ML DISP.SYRIN SQ SCH (10:29)
[2020-09-06] MEDS: THIAMINE HCL 100 MG TABLET (FP) PO SCH (10:30)
[2020-09-06] MEDS: amLODIPine BESYLATE 5 MG TABLET (FP) PO SCH (10:30)
[2020-09-06] MEDS: FOLIC ACID 1 MG TABLET (FP) PO SCH (10:32)
[2020-09-06] MEDS: MULTIVITAMINS (DAILY MVI) TABLET (FP) PO SCH (15:27)
[2020-09-06] MEDS ORDERED: oxyCODONE HCL 5 MG TABLET PO PRN (16:24)
[2020-09-06] MEDS ORDERED: LORazepam 1 MG TABLET PO PRN (18:13)
[2020-09-07] MEDS ORDERED: LORazepam 0.5 MG TABLET PO PRN
[2020-09-07] MEDS: NICOTINE 21 MG/24 HOURS TOPICAL PATCH TD SCH ×2 (00:25→10:28)
[2020-09-07] MEDS: LORazepam 0.5 MG TABLET PO SCH ×4 (05:30→22:13)
[2020-09-07] MEDS ORDERED: NICOTINE 21 MG/24 HOURS TOPICAL PATCH TD SCH (10:00)
[2020-09-07] MEDS: THIAMINE HCL 100 MG TABLET (FP) PO SCH (10:27)
[2020-09-07] MEDS: MULTIVITAMINS (DAILY MVI) TABLET (FP) PO SCH (10:27)
[2020-09-07] MEDS: amLODIPine BESYLATE 5 MG TABLET (FP) PO SCH (10:27)
[2020-09-07] MEDS: ENOXAPARIN NA (PORCINE) 40 MG/0.4 ML DISP.SYRIN SQ SCH (10:27)
[2020-09-07] MEDS: FOLIC ACID 1 MG TABLET (FP) PO SCH (10:27)
[2020-09-08] MEDS: MELATONIN 5 MG TABLETS PO ONE ×2 (01:12→01:40)
[2020-09-08] MEDS ORDERED: MELATONIN 5 MG TABLETS PO ONE (01:45)
[2020-09-08 04:50] VITALS: BP 149/89; PULSE 82; TEMP 98.6
[2020-09-08] MEDS ORDERED: LORazepam 0.5 MG TABLET PO ONE (05:00)
[2020-09-08 09:12] LABS: POTASSIUM 3.1 mmol/L (3.5-5.1)
[2020-09-08 09:14] LABS: BASO % 0.7 % (0-2.0); EOS % 4.2 % (0-4.5); HEMATOCRIT 43.3 % (35.4-49); HEMOGLOBIN 15.1 GM/dL (11.7-16.9); LYMPH % 22.6 % (8-40); MCHC 34.8 g/dl (32.0-35.9); MEAN CELL VOLUME 94.6 fl (80-96); MONO % 9.6 % (3.8-10.2); NEUT % 62.9 % (42.8-82.8); PLATELET COUNT 206 K/MM3 (134-434); RBC 4.57 M/mm3 (4.00-5.60); RDW 12.5 % (11.9-15.9); WHITE BLOOD COUNT 6.7 K/mm3 (4.0-10.0)
[2020-09-08 09:15] LABS: ALBUMIN 3.5 g/dl (3.4-5.0); BLOOD UREA NITROGEN 9.5 mg/dL (7-18); CALCIUM 9.2 mg/dL (8.5-10.1)
[2020-09-08 09:18] LABS: CREATININE 0.8 mg/dL (0.55-1.3); PHOSPHOROUS 4.2 mg/dL (2.5-4.9)
[2020-09-08] MEDS ORDERED: POTASSIUM CHLORIDE TABS 20 MEQ TABLET.ER (FP) PO ONE (09:19)
[2020-09-08 09:20] LABS: BILIRUBIN,TOTAL 1.8 mg/dL (0.2-1); TOT PROT 7.2 g/dl (6.4-8.2)
== END 2020-09-08 11:19 | disposition left against medical advice (07) ==
LOC: JER 18:10 → INTOOBSV 23:12 → JERBED 23:12 → J6WEST-2 09-06 19:21
PROVIDERS: ADMIT Internal Medicine; ATTEND Student in an Organized Health Care Education/Training Program
PROC: 3E033GC Introduction of Other Therapeutic Substance into Peripheral Vein, Percutaneous Approach (ICD-10-PCS; principal; 2020-09-04)
DX: F19.10 Other psychoactive substance abuse, uncomplicated (principal); F10.129 Alcohol abuse with intoxication, unspecified; F17.210 Nicotine dependence, cigarettes, uncomplicated; E66.9 Obesity, unspecified; Z68.37 Body mass index [BMI] 37.0-37.9, adult; J44.9 Chronic obstructive pulmonary disease, unspecified; F31.9 Bipolar disorder, unspecified; I10 Essential (primary) hypertension
CPT/HCPCS: 36415; 71045-TC-FY; 76705-TC; 80053; 80076; 82550; 82553; 82962; 83735; 84100; 84484; 85025; 93005; 93010; 93306-TC; 96365; 96375; 99285-25; C9803; G0378; U0003

== ENCOUNTER 2020-09-22 10:17 | Inpatient (IN) | payer OTHER ==
[2020-09-22 11:59] VITALS: BMI 31.0
[2020-09-22] MEDS ORDERED: ONDANSETRON *ODT* 4 MG TABLET SL PRN (12:27)
[2020-09-22] MEDS ORDERED: MAG HYDROX/AL HYDROX/SIMETH 30 ML UNIT-DOSE CUP PO PRN (12:27)
[2020-09-22] MEDS ORDERED: BISMUTH SUBSALICYLATE 262 MG/15 ML BTL PO PRN (12:27)
[2020-09-22] MEDS ORDERED: ACETAMINOPHEN 325 MG TABLET (FP) PO PRN (12:27)
[2020-09-22] MEDS ORDERED: MAGNESIUM HYDROX 2400MG/30ML ORAL SUSPENSION 30 ML CUP PO PRN (12:27)
[2020-09-22] MEDS ORDERED: MENTHOL/PHENOL 1 EACH UD MM PRN (12:27)
[2020-09-22] MEDS ORDERED: NICOTINE POLACRILEX 2 MG GUM BUC PRN (12:27)
[2020-09-22] MEDS ORDERED: MAGNESIUM CITRATE 300 ML BOTTLE PO PRN (12:27)
[2020-09-22] MEDS: amLODIPine BESYLATE 10 MG TABLET (FP) PO SCH (13:17)
[2020-09-22] MEDS: PRENATAL VITAMINS W/ FOLIC ACID TABLET (FP) PO SCH (13:17)
[2020-09-22] MEDS: NICOTINE 21 MG/24 HOURS TOPICAL PATCH TD SCH (13:17)
[2020-09-22] MEDS ORDERED: hydrOXYzine PAMOATE 25 MG CAPSULE (FP) PO SCH (14:00)
[2020-09-22 15:41] LABS: HEMATOCRIT 47.3 % (35.4-49); HEMOGLOBIN 15.9 GM/dL (11.7-16.9); MCH 32.5 pg (25.7-33.7); MCHC 33.5 g/dl (32.0-35.9); MEAN CELL VOLUME 96.8 fl (80-96); MEAN PLT VOLUME 9.4 fl (7.5-11.1); PLATELET COUNT 249 K/MM3 (134-434); RBC 4.89 M/mm3 (4.00-5.60); RDW 13.2 % (11.9-15.9); WHITE BLOOD COUNT 5.8 K/mm3 (4.0-10.0)
[2020-09-22 15:47] LABS: ALBUMIN 4.1 g/dl (3.4-5.0)
[2020-09-22 15:48] LABS: BLOOD UREA NITROGEN 4.9 mg/dL (7-18)
[2020-09-22 15:51] LABS: CREATININE 0.7 mg/dL (0.55-1.3)
[2020-09-22 15:52] LABS: BILIRUBIN,TOTAL 0.5 mg/dL (0.2-1)
[2020-09-22 16:42] LABS: HIV INTERPRETATION NEGATIVE (NEGATIVE)
[2020-09-22 17:15] LABS: POTASSIUM 2.8 mmol/L (3.5-5.1)
[2020-09-22] MEDS ORDERED: POTASSIUM CHLORIDE TABS 20 MEQ TABLET.ER (FP) PO ONE (17:20)
[2020-09-22] MEDS: LORazepam 2 MG TABLET PO SCH ×2 (18:39→22:30)
[2020-09-22] MEDS ORDERED: MELATONIN 5 MG TABLETS PO ONE (19:34)
[2020-09-22] MEDS: METHOCARBAMOL 500 MG TABLET PO PRN (20:04)
[2020-09-22] MEDS: MELATONIN 5 MG TABLETS PO SCH (21:21)
[2020-09-22] MEDS: THIAMINE HCL 100 MG TABLET (FP) PO SCH (22:30)
[2020-09-23] MEDS: LORazepam 2 MG TABLET PO SCH ×4 (05:35→22:25)
[2020-09-23] MEDS: IBUPROFEN 400 MG TABLET (FP) PO PRN ×2 (05:36→22:26)
[2020-09-23] MEDS: NICOTINE 21 MG/24 HOURS TOPICAL PATCH TD SCH (10:05)
[2020-09-23] MEDS: PRENATAL VITAMINS W/ FOLIC ACID TABLET (FP) PO SCH (10:05)
[2020-09-23] MEDS: amLODIPine BESYLATE 10 MG TABLET (FP) PO SCH (10:05)
[2020-09-23] MEDS ORDERED: POTASSIUM CHLORIDE ORAL LIQUID 20 MEQ/15 ML PO ONE (10:23)
[2020-09-23 11:43] LABS: ALBUMIN 3.5 g/dl (3.4-5.0); CALCIUM 9.4 mg/dL (8.5-10.1); HEMATOCRIT 44.6 % (35.4-49); HEMOGLOBIN 15.1 GM/dL (11.7-16.9); MCH 32.3 pg (25.7-33.7); MCHC 33.8 g/dl (32.0-35.9); MEAN CELL VOLUME 95.6 fl (80-96); MEAN PLT VOLUME 9.5 fl (7.5-11.1); PLATELET COUNT 226 K/MM3 (134-434); RBC 4.67 M/mm3 (4.00-5.60); RDW 13.6 % (11.9-15.9); WHITE BLOOD COUNT 5.1 K/mm3 (4.0-10.0)
[2020-09-23 11:44] LABS: BLOOD UREA NITROGEN 7.5 mg/dL (7-18); MAGNESIUM 1.7 mg/dL (1.8-2.4)
[2020-09-23 11:46] LABS: CREATININE 0.9 mg/dL (0.55-1.3); PHOSPHOROUS 3.2 mg/dL (2.5-4.9)
[2020-09-23 11:47] LABS: BILIRUBIN,TOTAL 1.2 mg/dL (0.2-1); TOT PROT 6.8 g/dl (6.4-8.2)
[2020-09-23] MEDS: LORazepam 1 MG TABLET PO PRN (13:07)
[2020-09-23] MEDS: MELATONIN 5 MG TABLETS PO SCH (22:25)
[2020-09-23] MEDS: POTASSIUM CHLORIDE ORAL LIQUID 20 MEQ/15 ML PO SCH (22:33)
[2020-09-23] MEDS: THIAMINE HCL 100 MG TABLET (FP) PO SCH (22:34)
[2020-09-24] MEDS: LORazepam 1 MG TABLET PO SCH ×4 (05:18→22:04)
[2020-09-24] MEDS: IBUPROFEN 400 MG TABLET (FP) PO PRN ×2 (05:20→18:20)
[2020-09-24] MEDS: PRENATAL VITAMINS W/ FOLIC ACID TABLET (FP) PO SCH (10:40)
[2020-09-24] MEDS: amLODIPine BESYLATE 10 MG TABLET (FP) PO SCH (10:40)
[2020-09-24] MEDS: METHOCARBAMOL 500 MG TABLET PO PRN (10:41)
[2020-09-24] MEDS: ACETAMINOPHEN 325 MG TABLET (FP) PO PRN ×2 (10:41→22:06)
[2020-09-24] MEDS: NICOTINE 21 MG/24 HOURS TOPICAL PATCH TD SCH (10:41)
[2020-09-24 10:43] LABS: POTASSIUM 3.7 mmol/L (3.5-5.1)
[2020-09-24 10:47] LABS: CALCIUM 9.5 mg/dL (8.5-10.1)
[2020-09-24 10:48] LABS: BLOOD UREA NITROGEN 7.1 mg/dL (7-18)
[2020-09-24 10:51] LABS: CREATININE 0.7 mg/dL (0.55-1.3)
[2020-09-24] MEDS: POTASSIUM CHLORIDE ORAL LIQUID 20 MEQ/15 ML PO SCH (10:58)
[2020-09-24] MEDS: LORazepam 1 MG TABLET PO PRN (15:49)
[2020-09-24] MEDS: QUEtiapine FUMARATE 100 MG TABLET (FP) PO SCH (22:04)
[2020-09-24] MEDS: THIAMINE HCL 100 MG TABLET (FP) PO SCH (22:05)
[2020-09-24] MEDS: MELATONIN 5 MG TABLETS PO SCH (22:05)
[2020-09-25] MEDS ORDERED: LORazepam 0.5 MG TABLET PO PRN
[2020-09-25] MEDS: LORazepam 0.5 MG TABLET PO SCH ×4 (05:23→22:32)
[2020-09-25] MEDS: IBUPROFEN 400 MG TABLET (FP) PO PRN ×2 (05:24→22:33)
[2020-09-25] MEDS: PRENATAL VITAMINS W/ FOLIC ACID TABLET (FP) PO SCH (10:17)
[2020-09-25] MEDS: amLODIPine BESYLATE 10 MG TABLET (FP) PO SCH (10:17)
[2020-09-25] MEDS: NICOTINE 21 MG/24 HOURS TOPICAL PATCH TD SCH (10:17)
[2020-09-25] MEDS: ACETAMINOPHEN 325 MG TABLET (FP) PO PRN (10:18)
[2020-09-25] MEDS: METHOCARBAMOL 500 MG TABLET PO PRN (10:18)
[2020-09-25] MEDS: THIAMINE HCL 100 MG TABLET (FP) PO SCH (22:31)
[2020-09-25] MEDS: MELATONIN 5 MG TABLETS PO SCH (22:31)
[2020-09-25] MEDS: QUEtiapine FUMARATE 100 MG TABLET (FP) PO SCH (22:31)
[2020-09-26] MEDS ORDERED: LORazepam 0.5 MG TABLET PO ONE (05:00)
[2020-09-26] MEDS: IBUPROFEN 400 MG TABLET (FP) PO PRN (05:27)
[2020-09-26 09:50] VITALS: BP 154/84; PULSE 86; TEMP 97.5
[2020-09-26] MEDS: PRENATAL VITAMINS W/ FOLIC ACID TABLET (FP) PO SCH (10:34)
[2020-09-26] MEDS: amLODIPine BESYLATE 10 MG TABLET (FP) PO SCH (10:34)
[2020-09-26] MEDS: NICOTINE 21 MG/24 HOURS TOPICAL PATCH TD SCH (10:34)
== END 2020-09-26 10:36 | disposition home or self-care (01) | DRG 774 ==
LOC: YASAS 10:17 → Y6N 12:37
PROVIDERS: ADMIT Allergy & Immunology; ATTEND Allergy & Immunology
PROC: HZ2ZZZZ Detoxification Services for Substance Abuse Treatment (ICD-10-PCS; principal; 2020-09-22)
DX: F10.230 Alcohol dependence with withdrawal, uncomplicated (principal); F14.10 Cocaine abuse, uncomplicated; F12.20 Cannabis dependence, uncomplicated; F17.210 Nicotine dependence, cigarettes, uncomplicated; F31.77 Bipolar disorder, in partial remission, most recent episode mixed; F19.282 Other psychoactive substance dependence with psychoactive substance-induced sleep disorder; F19.280 Other psychoactive substance dependence with psychoactive substance-induced anxiety disorder; F19.24 Other psychoactive substance dependence with psychoactive substance-induced mood disorder; F39 Unspecified mood [affective] disorder; I10 Essential (primary) hypertension; J43.0 Unilateral pulmonary emphysema [MacLeod's syndrome]; J45.20 Mild intermittent asthma, uncomplicated; R10.32 Left lower quadrant pain; R10.12 Left upper quadrant pain; Z62.810 Personal history of physical and sexual abuse in childhood; Z91.410 Personal history of adult physical and sexual abuse; Z91.19 Patient's noncompliance with other medical treatment and regimen
CPT/HCPCS: 36415; 71046-TC-FY; 80048; 80053; 83690; 83735; 84100; 85027; 85379; 86780; 87389; 93005; 93010; C9803; U0003

== ENCOUNTER 2020-09-28 16:04 | Emergency (ER) | payer OTHER ==
[2020-09-28 16:27] VITALS: BP 127/75; PULSE 96; TEMP 98.5; BMI 32.5
[2020-09-28] MEDS ORDERED: MAG HYDROX/AL HYDROX/SIMETH 30 ML UNIT-DOSE CUP PO ONE (17:02)
[2020-09-28] MEDS ORDERED: LIDOCAINE VISCOUS 2% ORAL/TOP 20 ML UNIT-DOSE CUP MM ONE (17:03)
[2020-09-28] MEDS ORDERED: LIDOCAINE VISCOUS 2% ORAL/TOP 20 ML UNIT-DOSE CUP ONE (17:14)
[2020-09-28] MEDS ORDERED: MAG HYDROX/AL HYDROX/SIMETH 30 ML UNIT-DOSE CUP ONE (17:15)
== END 2020-09-28 17:53 | disposition home or self-care (01) ==
LOC: JER 16:04
DX: F10.920 Alcohol use, unspecified with intoxication, uncomplicated (principal)
CPT/HCPCS: 99283-25

== ENCOUNTER 2020-09-29 11:27 | Emergency (ER) | payer OTHER ==
[2020-09-29 11:44] VITALS: BMI 26.6
[2020-09-29 12:27] LABS: BASO % 1.5 % (0-2.0); EOS % 1.6 % (0-4.5); HEMATOCRIT 43.1 % (35.4-49); HEMOGLOBIN 14.6 GM/dL (11.7-16.9); LYMPH % 30.4 % (8-40); MCH 32.4 pg (25.7-33.7); MCHC 33.9 g/dl (32.0-35.9); MEAN CELL VOLUME 95.5 fl (80-96); MEAN PLT VOLUME 9.3 fl (7.5-11.1); MONO % 13.7 % (3.8-10.2); NEUT % 52.8 % (42.8-82.8); PLATELET COUNT 228 K/MM3 (134-434); RBC 4.51 M/mm3 (4.00-5.60); RDW 13.4 % (11.9-15.9); WHITE BLOOD COUNT 5.1 K/mm3 (4.0-10.0)
[2020-09-29 12:58] LABS: CALCIUM 8.7 mg/dL (8.5-10.1)
[2020-09-29 12:59] LABS: ALBUMIN 4.2 g/dl (3.4-5.0); BLOOD UREA NITROGEN 7.2 mg/dL (7-18)
[2020-09-29 13:02] LABS: CREATININE 0.8 mg/dL (0.55-1.3)
[2020-09-29 13:03] LABS: TOT PROT 7.7 g/dl (6.4-8.2)
[2020-09-29 13:06] LABS: BILIRUBIN,TOTAL 0.5 mg/dL (0.2-1)
[2020-09-29 14:50] VITALS: BP 122/79; PULSE 82; TEMP 97.9
== END 2020-09-29 15:34 | disposition home or self-care (01) ==
LOC: JER 11:27
DX: F10.129 Alcohol abuse with intoxication, unspecified (principal)
CPT/HCPCS: 36415; 80053; 80307; 85025; 99283-25; C9803; U0003

== ENCOUNTER 2020-09-29 16:30 | Inpatient (IN) | payer OTHER ==
[2020-09-29 10:46] VITALS: BMI 32.5
[2020-09-29] MEDS ORDERED: MAGNESIUM HYDROX 2400MG/30ML ORAL SUSPENSION 30 ML CUP PO PRN (19:34)
[2020-09-29] MEDS ORDERED: ACETAMINOPHEN 325 MG TABLET (FP) PO PRN (19:34)
[2020-09-29] MEDS ORDERED: BISMUTH SUBSALICYLATE 524 MG/30 ML UD PO PRN (19:34)
[2020-09-29] MEDS ORDERED: MAGNESIUM CITRATE 300 ML BOTTLE PO PRN (19:34)
[2020-09-29] MEDS ORDERED: ONDANSETRON *ODT* 4 MG TABLET SL PRN (19:34)
[2020-09-29] MEDS ORDERED: MENTHOL/PHENOL 1 EACH UD MM PRN (19:34)
[2020-09-29] MEDS ORDERED: MAG HYDROX/AL HYDROX/SIMETH 30 ML UNIT-DOSE CUP PO PRN (19:34)
[2020-09-29] MEDS ORDERED: chlordiazePOXIDE HCL 25 MG CAPSULE PO PRN (19:34)
[2020-09-29] MEDS: MELATONIN 5 MG TABLETS PO SCH (22:00)
[2020-09-29] MEDS: THIAMINE HCL 100 MG TABLET (FP) PO SCH (22:00)
[2020-09-29] MEDS: chlordiazePOXIDE HCL 25 MG CAPSULE PO SCH (22:01)
[2020-09-30] MEDS: chlordiazePOXIDE HCL 25 MG CAPSULE PO SCH ×4 (05:37→22:25)
[2020-09-30] MEDS: NICOTINE 14 MG/24 HOURS TOPICAL PATCH TD SCH (10:06)
[2020-09-30] MEDS: PRENATAL VITAMINS W/ FOLIC ACID TABLET (FP) PO SCH (10:06)
[2020-09-30] MEDS: METHOCARBAMOL 500 MG TABLET PO PRN ×2 (10:07→18:32)
[2020-09-30] MEDS: ACETAMINOPHEN 325 MG TABLET (FP) PO PRN ×2 (10:08→18:33)
[2020-09-30] MEDS: NICOTINE POLACRILEX 2 MG GUM BUC PRN ×3 (10:30→18:32)
[2020-09-30] MEDS: MELATONIN 5 MG TABLETS PO SCH (22:23)
[2020-09-30] MEDS: QUEtiapine FUMARATE 100 MG TABLET (FP) PO SCH (22:25)
[2020-09-30] MEDS: THIAMINE HCL 100 MG TABLET (FP) PO SCH (22:25)
[2020-10-01] MEDS: chlordiazePOXIDE HCL 25 MG CAPSULE PO SCH ×4 (06:00→22:00)
[2020-10-01] MEDS: PRENATAL VITAMINS W/ FOLIC ACID TABLET (FP) PO SCH (10:06)
[2020-10-01] MEDS: METHOCARBAMOL 500 MG TABLET PO PRN ×2 (10:06→17:20)
[2020-10-01] MEDS: IBUPROFEN 400 MG TABLET (FP) PO PRN ×2 (10:07→17:20)
[2020-10-01] MEDS: NICOTINE 14 MG/24 HOURS TOPICAL PATCH TD SCH (10:08)
[2020-10-01] MEDS: THIAMINE HCL 100 MG TABLET (FP) PO SCH (21:55)
[2020-10-01] MEDS: ACETAMINOPHEN 325 MG TABLET (FP) PO PRN (21:56)
[2020-10-01] MEDS: QUEtiapine FUMARATE 100 MG TABLET (FP) PO SCH (21:56)
[2020-10-01] MEDS: MELATONIN 5 MG TABLETS PO SCH (21:59)
[2020-10-02] MEDS ORDERED: chlordiazePOXIDE HCL 10 MG CAPSULE PO PRN
[2020-10-02] MEDS: chlordiazePOXIDE HCL 10 MG CAPSULE PO SCH ×4 (05:48→22:22)
[2020-10-02] MEDS: IBUPROFEN 400 MG TABLET (FP) PO PRN ×3 (07:22→22:23)
[2020-10-02] MEDS: METHOCARBAMOL 500 MG TABLET PO PRN ×2 (07:22→13:55)
[2020-10-02] MEDS: PRENATAL VITAMINS W/ FOLIC ACID TABLET (FP) PO SCH (10:21)
[2020-10-02] MEDS: NICOTINE 14 MG/24 HOURS TOPICAL PATCH TD SCH (10:21)
[2020-10-02] MEDS: ACETAMINOPHEN 325 MG TABLET (FP) PO PRN ×2 (10:22→17:49)
[2020-10-02] MEDS: amLODIPine BESYLATE 10 MG TABLET (FP) PO SCH (11:08)
[2020-10-02] MEDS: MELATONIN 5 MG TABLETS PO SCH (22:21)
[2020-10-02] MEDS: THIAMINE HCL 100 MG TABLET (FP) PO SCH (22:21)
[2020-10-02] MEDS: QUEtiapine FUMARATE 100 MG TABLET (FP) PO SCH (22:22)
[2020-10-03] MEDS: METHOCARBAMOL 500 MG TABLET PO PRN ×3 (04:15→23:03)
[2020-10-03] MEDS: ACETAMINOPHEN 325 MG TABLET (FP) PO PRN (04:16)
[2020-10-03] MEDS: chlordiazePOXIDE HCL 10 MG CAPSULE PO SCH ×2 (04:19→17:25)
[2020-10-03] MEDS: amLODIPine BESYLATE 10 MG TABLET (FP) PO SCH (10:13)
[2020-10-03] MEDS: PRENATAL VITAMINS W/ FOLIC ACID TABLET (FP) PO SCH (10:13)
[2020-10-03] MEDS: NICOTINE 14 MG/24 HOURS TOPICAL PATCH TD SCH (10:13)
[2020-10-03] MEDS: IBUPROFEN 400 MG TABLET (FP) PO PRN ×3 (10:14→23:01)
[2020-10-03] MEDS: QUEtiapine FUMARATE 100 MG TABLET (FP) PO SCH (23:00)
[2020-10-03] MEDS: THIAMINE HCL 100 MG TABLET (FP) PO SCH (23:00)
[2020-10-03] MEDS: MELATONIN 5 MG TABLETS PO SCH (23:00)
[2020-10-04] MEDS ORDERED: chlordiazePOXIDE HCL 10 MG CAPSULE PO ONE (05:00)
[2020-10-04] MEDS: IBUPROFEN 400 MG TABLET (FP) PO PRN (06:13)
[2020-10-04] MEDS: METHOCARBAMOL 500 MG TABLET PO PRN (06:14)
[2020-10-04 09:36] VITALS: BP 138/91; PULSE 80; TEMP 97.1
[2020-10-04] MEDS: NICOTINE 14 MG/24 HOURS TOPICAL PATCH TD SCH (10:35)
[2020-10-04] MEDS: amLODIPine BESYLATE 10 MG TABLET (FP) PO SCH (10:35)
[2020-10-04] MEDS: PRENATAL VITAMINS W/ FOLIC ACID TABLET (FP) PO SCH (10:35)
[2020-10-04] MEDS: ACETAMINOPHEN 325 MG TABLET (FP) PO PRN (10:36)
== END 2020-10-04 13:11 | disposition other institution (70) | DRG 773 ==
LOC: YASAS 16:30 → Y3N 20:46
PROVIDERS: ADMIT Allergy & Immunology; ATTEND Allergy & Immunology
PROC: HZ2ZZZZ Detoxification Services for Substance Abuse Treatment (ICD-10-PCS; principal; 2020-09-29)
DX: F11.23 Opioid dependence with withdrawal (principal); F10.220 Alcohol dependence with intoxication, uncomplicated; F10.230 Alcohol dependence with withdrawal, uncomplicated; F14.20 Cocaine dependence, uncomplicated; F12.20 Cannabis dependence, uncomplicated; F17.210 Nicotine dependence, cigarettes, uncomplicated; F31.60 Bipolar disorder, current episode mixed, unspecified; F19.282 Other psychoactive substance dependence with psychoactive substance-induced sleep disorder; F19.280 Other psychoactive substance dependence with psychoactive substance-induced anxiety disorder; F19.24 Other psychoactive substance dependence with psychoactive substance-induced mood disorder; I10 Essential (primary) hypertension; J43.0 Unilateral pulmonary emphysema [MacLeod's syndrome]; J45.20 Mild intermittent asthma, uncomplicated; R73.9 Hyperglycemia, unspecified; R76.11 Nonspecific reaction to tuberculin skin test without active tuberculosis; R74.01 Elevation of levels of liver transaminase levels; Z62.810 Personal history of physical and sexual abuse in childhood; Z91.410 Personal history of adult physical and sexual abuse
CPT/HCPCS: 36415; 86780; 93005; 93010; C9803; U0003

== ENCOUNTER 2020-10-04 13:13 | Inpatient (IN) | payer OTHER ==
[2020-10-04] MEDS ORDERED: LOPERAMIDE HCL 2 MG CAPSULE PO PRN (15:54)
[2020-10-04] MEDS ORDERED: MAG HYDROX/AL HYDROX/SIMETH 30 ML UNIT-DOSE CUP PO PRN (15:54)
[2020-10-04] MEDS ORDERED: P-EPHED 60MG/TRIPROLIDI 2.5MG TABLET PO PRN (15:54)
[2020-10-04] MEDS ORDERED: MAGNESIUM CITRATE 300 ML BOTTLE PO PRN (15:54)
[2020-10-04] MEDS ORDERED: MENTHOL/PHENOL 1 EACH UD MM PRN (15:54)
[2020-10-04] MEDS ORDERED: guaiFENesin 200 MG/10 ML 10 ML UNIT-DOSE CUPS PO PRN (15:54)
[2020-10-04] MEDS ORDERED: MAGNESIUM HYDROX 2400MG/30ML ORAL SUSPENSION 30 ML CUP PO PRN (15:54)
[2020-10-04] MEDS ORDERED: PT OWN MED DRAWER 7, Y5N ONE (19:44)
[2020-10-04] MEDS: QUEtiapine FUMARATE 100 MG TABLET (FP) PO SCH (21:39)
[2020-10-04] MEDS: IBUPROFEN 400 MG TABLET (FP) PO PRN (21:39)
[2020-10-04] MEDS: hydrOXYzine PAMOATE 25 MG CAPSULE (FP) PO PRN (21:39)
[2020-10-04] MEDS: THIAMINE HCL 100 MG TABLET (FP) PO SCH (21:40)
[2020-10-04] MEDS: MELATONIN 5 MG TABLETS PO SCH (21:40)
[2020-10-05] MEDS: IBUPROFEN 400 MG TABLET (FP) PO PRN ×2 (06:41→21:19)
[2020-10-05] MEDS: NICOTINE 21 MG/24 HOURS TOPICAL PATCH TD SCH (09:05)
[2020-10-05] MEDS: PRENATAL VITAMINS W/ FOLIC ACID TABLET (FP) PO SCH (09:57)
[2020-10-05] MEDS: hydrOXYzine PAMOATE 25 MG CAPSULE (FP) PO PRN ×2 (09:57→21:20)
[2020-10-05] MEDS: ACETAMINOPHEN 325 MG TABLET (FP) PO PRN (09:57)
[2020-10-05] MEDS: amLODIPine BESYLATE 10 MG TABLET (FP) PO SCH (09:57)
[2020-10-05] MEDS ORDERED: NICOTINE POLACRILEX 2 MG GUM BUC PRN (10:26)
[2020-10-05 11:41] LABS: CALCIUM 9.4 mg/dL (8.5-10.1)
[2020-10-05 11:42] LABS: BLOOD UREA NITROGEN 7.3 mg/dL (7-18)
[2020-10-05 11:45] LABS: CREATININE 0.9 mg/dL (0.55-1.3)
[2020-10-05 11:47] LABS: BILIRUBIN,TOTAL 0.4 mg/dL (0.2-1); TOT PROT 7.6 g/dl (6.4-8.2)
[2020-10-05] MEDS: LIDOCAINE 5% TOPICAL PATCH TP SCH (12:17)
[2020-10-05 12:35] LABS: HIV INTERPRETATION NEGATIVE (NEGATIVE)
[2020-10-05] MEDS: METHOCARBAMOL 500 MG TABLET PO PRN (13:38)
[2020-10-05] MEDS: THIAMINE HCL 100 MG TABLET (FP) PO SCH (21:18)
[2020-10-05] MEDS: QUEtiapine FUMARATE 100 MG TABLET (FP) PO SCH (21:19)
[2020-10-05] MEDS: MELATONIN 5 MG TABLETS PO SCH (21:19)
[2020-10-05] MEDS: LIDOCAINE PATCH REMOVAL MC SCH (21:19)
[2020-10-06] MEDS: METHOCARBAMOL 500 MG TABLET PO PRN ×3 (06:41→21:13)
[2020-10-06] MEDS: hydrOXYzine PAMOATE 25 MG CAPSULE (FP) PO PRN ×3 (06:41→21:13)
[2020-10-06] MEDS: IBUPROFEN 400 MG TABLET (FP) PO PRN ×2 (06:42→14:58)
[2020-10-06] MEDS ORDERED: PT OWN MED DRAWER 7, Y5N ONE (08:38)
[2020-10-06] MEDS: LIDOCAINE 5% TOPICAL PATCH TP SCH (09:58)
[2020-10-06] MEDS: NICOTINE 21 MG/24 HOURS TOPICAL PATCH TD SCH (09:58)
[2020-10-06] MEDS: amLODIPine BESYLATE 10 MG TABLET (FP) PO SCH (10:02)
[2020-10-06] MEDS: PRENATAL VITAMINS W/ FOLIC ACID TABLET (FP) PO SCH (10:02)
[2020-10-06] MEDS: ACETAMINOPHEN 325 MG TABLET (FP) PO PRN (10:04)
[2020-10-06] MEDS ORDERED: FLU VACCINE (FLULAVAL) PF 60 MCG/0.5 ML SYRINGE 2020-2021 IM ONE (12:00)
[2020-10-06] MEDS: THIAMINE HCL 100 MG TABLET (FP) PO SCH (21:11)
[2020-10-06] MEDS: LIDOCAINE PATCH REMOVAL MC SCH (21:11)
[2020-10-06] MEDS: QUEtiapine FUMARATE 100 MG TABLET (FP) PO SCH (21:11)
[2020-10-06] MEDS: MELATONIN 5 MG TABLETS PO SCH (21:11)
[2020-10-07] MEDS: LIDOCAINE 5% TOPICAL PATCH TP SCH (09:41)
[2020-10-07] MEDS: NICOTINE 21 MG/24 HOURS TOPICAL PATCH TD SCH (09:41)
[2020-10-07] MEDS: hydrOXYzine PAMOATE 25 MG CAPSULE (FP) PO PRN ×2 (09:42→21:03)
[2020-10-07] MEDS: amLODIPine BESYLATE 10 MG TABLET (FP) PO SCH (09:42)
[2020-10-07] MEDS: METHOCARBAMOL 500 MG TABLET PO PRN ×2 (09:42→21:03)
[2020-10-07] MEDS: IBUPROFEN 400 MG TABLET (FP) PO PRN ×2 (09:42→21:03)
[2020-10-07] MEDS: PRENATAL VITAMINS W/ FOLIC ACID TABLET (FP) PO SCH (09:43)
[2020-10-07] MEDS: QUEtiapine FUMARATE 100 MG TABLET (FP) PO SCH (21:03)
[2020-10-07] MEDS: THIAMINE HCL 100 MG TABLET (FP) PO SCH (21:03)
[2020-10-07] MEDS: MELATONIN 5 MG TABLETS PO SCH (21:03)
[2020-10-07] MEDS: LIDOCAINE PATCH REMOVAL MC SCH (21:05)
[2020-10-08] MEDS: IBUPROFEN 400 MG TABLET (FP) PO PRN ×2 (09:53→21:19)
[2020-10-08] MEDS: LIDOCAINE 5% TOPICAL PATCH TP SCH (09:53)
[2020-10-08] MEDS: PRENATAL VITAMINS W/ FOLIC ACID TABLET (FP) PO SCH (09:53)
[2020-10-08] MEDS: amLODIPine BESYLATE 10 MG TABLET (FP) PO SCH (09:53)
[2020-10-08] MEDS: hydrOXYzine PAMOATE 25 MG CAPSULE (FP) PO PRN ×3 (09:54→21:19)
[2020-10-08] MEDS: METHOCARBAMOL 500 MG TABLET PO PRN ×2 (09:54→21:19)
[2020-10-08] MEDS: NICOTINE 21 MG/24 HOURS TOPICAL PATCH TD SCH (09:56)
[2020-10-08] MEDS: ACETAMINOPHEN 325 MG TABLET (FP) PO PRN (13:50)
[2020-10-08] MEDS: MELATONIN 5 MG TABLETS PO SCH (21:19)
[2020-10-08] MEDS: THIAMINE HCL 100 MG TABLET (FP) PO SCH (21:19)
[2020-10-08] MEDS: QUEtiapine FUMARATE 100 MG TABLET (FP) PO SCH (21:20)
[2020-10-08] MEDS: LIDOCAINE PATCH REMOVAL MC SCH (21:20)
[2020-10-09] MEDS: IBUPROFEN 400 MG TABLET (FP) PO PRN ×3 (09:53→21:04)
[2020-10-09] MEDS: PRENATAL VITAMINS W/ FOLIC ACID TABLET (FP) PO SCH (09:53)
[2020-10-09] MEDS: NICOTINE 21 MG/24 HOURS TOPICAL PATCH TD SCH (09:53)
[2020-10-09] MEDS: LIDOCAINE 5% TOPICAL PATCH TP SCH (09:53)
[2020-10-09] MEDS: METHOCARBAMOL 500 MG TABLET PO PRN ×2 (09:53→21:04)
[2020-10-09] MEDS: amLODIPine BESYLATE 10 MG TABLET (FP) PO SCH (09:53)
[2020-10-09] MEDS: hydrOXYzine PAMOATE 25 MG CAPSULE (FP) PO PRN ×3 (09:53→21:04)
[2020-10-09] MEDS: THIAMINE HCL 100 MG TABLET (FP) PO SCH (21:04)
[2020-10-09] MEDS: MELATONIN 5 MG TABLETS PO SCH (21:04)
[2020-10-09] MEDS: QUEtiapine FUMARATE 100 MG TABLET (FP) PO SCH (21:04)
[2020-10-09] MEDS: LIDOCAINE PATCH REMOVAL MC SCH (21:05)
[2020-10-10] MEDS: hydrOXYzine PAMOATE 25 MG CAPSULE (FP) PO PRN ×4 (04:03→21:35)
[2020-10-10] MEDS: IBUPROFEN 400 MG TABLET (FP) PO PRN ×2 (04:03→21:35)
[2020-10-10] MEDS: METHOCARBAMOL 500 MG TABLET PO PRN ×2 (04:04→21:35)
[2020-10-10] MEDS: NICOTINE 21 MG/24 HOURS TOPICAL PATCH TD SCH (09:38)
[2020-10-10] MEDS: LIDOCAINE 5% TOPICAL PATCH TP SCH (09:38)
[2020-10-10] MEDS: amLODIPine BESYLATE 10 MG TABLET (FP) PO SCH (09:38)
[2020-10-10] MEDS: PRENATAL VITAMINS W/ FOLIC ACID TABLET (FP) PO SCH (09:38)
[2020-10-10] MEDS: ACETAMINOPHEN 325 MG TABLET (FP) PO PRN ×2 (09:39→15:23)
[2020-10-10] MEDS: QUEtiapine FUMARATE 100 MG TABLET (FP) PO SCH (21:32)
[2020-10-10] MEDS: THIAMINE HCL 100 MG TABLET (FP) PO SCH (21:33)
[2020-10-10] MEDS: MELATONIN 5 MG TABLETS PO SCH (21:33)
[2020-10-10] MEDS: LIDOCAINE PATCH REMOVAL MC SCH (21:42)
[2020-10-11] MEDS: hydrOXYzine PAMOATE 25 MG CAPSULE (FP) PO PRN ×3 (02:17→21:14)
[2020-10-11] MEDS: ACETAMINOPHEN 325 MG TABLET (FP) PO PRN (02:17)
[2020-10-11] MEDS: LIDOCAINE 5% TOPICAL PATCH TP SCH (09:26)
[2020-10-11] MEDS: NICOTINE 21 MG/24 HOURS TOPICAL PATCH TD SCH (09:26)
[2020-10-11] MEDS: IBUPROFEN 400 MG TABLET (FP) PO PRN ×2 (09:27→21:14)
[2020-10-11] MEDS: amLODIPine BESYLATE 10 MG TABLET (FP) PO SCH (09:27)
[2020-10-11] MEDS: METHOCARBAMOL 500 MG TABLET PO PRN ×2 (09:27→21:14)
[2020-10-11] MEDS: PRENATAL VITAMINS W/ FOLIC ACID TABLET (FP) PO SCH (09:27)
[2020-10-11] MEDS: MELATONIN 5 MG TABLETS PO SCH (21:14)
[2020-10-11] MEDS: THIAMINE HCL 100 MG TABLET (FP) PO SCH (21:14)
[2020-10-11] MEDS: QUEtiapine FUMARATE 100 MG TABLET (FP) PO SCH (21:14)
[2020-10-11] MEDS: LIDOCAINE PATCH REMOVAL MC SCH (21:15)
[2020-10-12] MEDS: amLODIPine BESYLATE 10 MG TABLET (FP) PO SCH (10:01)
[2020-10-12] MEDS: LIDOCAINE 5% TOPICAL PATCH TP SCH (10:01)
[2020-10-12] MEDS: PRENATAL VITAMINS W/ FOLIC ACID TABLET (FP) PO SCH (10:01)
[2020-10-12] MEDS: hydrOXYzine PAMOATE 25 MG CAPSULE (FP) PO PRN ×3 (10:01→21:16)
[2020-10-12] MEDS: IBUPROFEN 400 MG TABLET (FP) PO PRN ×2 (10:01→21:16)
[2020-10-12] MEDS: METHOCARBAMOL 500 MG TABLET PO PRN ×2 (10:01→21:16)
[2020-10-12] MEDS: NICOTINE 21 MG/24 HOURS TOPICAL PATCH TD SCH (10:01)
[2020-10-12] MEDS: cloNIDine HCL 0.1 MG TABLET PO PRN ×2 (12:47→21:15)
[2020-10-12] MEDS: ACETAMINOPHEN 325 MG TABLET (FP) PO PRN (15:36)
[2020-10-12] MEDS: QUEtiapine FUMARATE 100 MG TABLET (FP) PO SCH (21:16)
[2020-10-12] MEDS: MELATONIN 5 MG TABLETS PO SCH (21:16)
[2020-10-12] MEDS: THIAMINE HCL 100 MG TABLET (FP) PO SCH (21:16)
[2020-10-12] MEDS: LIDOCAINE PATCH REMOVAL MC SCH (21:17)
[2020-10-13] MEDS: hydrOXYzine PAMOATE 25 MG CAPSULE (FP) PO PRN ×3 (09:54→21:22)
[2020-10-13] MEDS: amLODIPine BESYLATE 10 MG TABLET (FP) PO SCH (09:54)
[2020-10-13] MEDS: NICOTINE 21 MG/24 HOURS TOPICAL PATCH TD SCH (09:54)
[2020-10-13] MEDS: PRENATAL VITAMINS W/ FOLIC ACID TABLET (FP) PO SCH (09:54)
[2020-10-13] MEDS: LIDOCAINE 5% TOPICAL PATCH TP SCH (09:54)
[2020-10-13] MEDS: IBUPROFEN 400 MG TABLET (FP) PO PRN ×2 (09:55→21:22)
[2020-10-13] MEDS: METHOCARBAMOL 500 MG TABLET PO PRN ×2 (09:55→21:22)
[2020-10-13] MEDS: ACETAMINOPHEN 325 MG TABLET (FP) PO PRN (15:30)
[2020-10-13] MEDS: MELATONIN 5 MG TABLETS PO SCH (21:21)
[2020-10-13] MEDS: THIAMINE HCL 100 MG TABLET (FP) PO SCH (21:21)
[2020-10-13] MEDS: QUEtiapine FUMARATE 100 MG TABLET (FP) PO SCH (21:22)
[2020-10-13] MEDS: LIDOCAINE PATCH REMOVAL MC SCH (21:23)
[2020-10-13] MEDS: cloNIDine HCL 0.1 MG TABLET PO PRN (21:28)
[2020-10-14] MEDS: IBUPROFEN 400 MG TABLET (FP) PO PRN ×2 (06:25→21:04)
[2020-10-14] MEDS: hydrOXYzine PAMOATE 25 MG CAPSULE (FP) PO PRN ×3 (06:25→21:05)
[2020-10-14] MEDS: METHOCARBAMOL 500 MG TABLET PO PRN (06:26)
[2020-10-14] MEDS: LIDOCAINE 5% TOPICAL PATCH TP SCH (10:01)
[2020-10-14] MEDS: amLODIPine BESYLATE 10 MG TABLET (FP) PO SCH (10:02)
[2020-10-14] MEDS: NICOTINE 21 MG/24 HOURS TOPICAL PATCH TD SCH (10:02)
[2020-10-14] MEDS: PRENATAL VITAMINS W/ FOLIC ACID TABLET (FP) PO SCH (10:02)
[2020-10-14] MEDS: ACETAMINOPHEN 325 MG TABLET (FP) PO PRN (11:05)
[2020-10-14] MEDS: MELATONIN 5 MG TABLETS PO SCH (21:04)
[2020-10-14] MEDS: THIAMINE HCL 100 MG TABLET (FP) PO SCH (21:04)
[2020-10-14] MEDS: QUEtiapine FUMARATE 100 MG TABLET (FP) PO SCH (21:05)
[2020-10-14] MEDS: LIDOCAINE PATCH REMOVAL MC SCH (21:05)
[2020-10-15] MEDS: hydrOXYzine PAMOATE 25 MG CAPSULE (FP) PO PRN ×3 (03:26→21:04)
[2020-10-15] MEDS: ACETAMINOPHEN 325 MG TABLET (FP) PO PRN (03:26)
[2020-10-15] MEDS: IBUPROFEN 400 MG TABLET (FP) PO PRN ×2 (10:03→21:05)
[2020-10-15] MEDS: amLODIPine BESYLATE 10 MG TABLET (FP) PO SCH (10:03)
[2020-10-15] MEDS: PRENATAL VITAMINS W/ FOLIC ACID TABLET (FP) PO SCH (10:03)
[2020-10-15] MEDS: METHOCARBAMOL 500 MG TABLET PO PRN ×2 (10:03→21:05)
[2020-10-15] MEDS: NICOTINE 21 MG/24 HOURS TOPICAL PATCH TD SCH (10:06)
[2020-10-15] MEDS: LIDOCAINE 5% TOPICAL PATCH TP SCH (10:06)
[2020-10-15] MEDS: cloNIDine HCL 0.1 MG TABLET PO PRN (21:04)
[2020-10-15] MEDS: MELATONIN 5 MG TABLETS PO SCH (21:04)
[2020-10-15] MEDS: QUEtiapine FUMARATE 100 MG TABLET (FP) PO SCH (21:04)
[2020-10-15] MEDS: THIAMINE HCL 100 MG TABLET (FP) PO SCH (21:04)
[2020-10-15] MEDS: LIDOCAINE PATCH REMOVAL MC SCH (21:06)
[2020-10-16] MEDS: ACETAMINOPHEN 325 MG TABLET (FP) PO PRN (03:49)
[2020-10-16] MEDS: hydrOXYzine PAMOATE 25 MG CAPSULE (FP) PO PRN ×3 (03:49→21:32)
[2020-10-16] MEDS: amLODIPine BESYLATE 10 MG TABLET (FP) PO SCH (10:06)
[2020-10-16] MEDS: NICOTINE 21 MG/24 HOURS TOPICAL PATCH TD SCH (10:07)
[2020-10-16] MEDS: LIDOCAINE 5% TOPICAL PATCH TP SCH (10:07)
[2020-10-16] MEDS: PRENATAL VITAMINS W/ FOLIC ACID TABLET (FP) PO SCH (10:07)
[2020-10-16] MEDS: METHOCARBAMOL 500 MG TABLET PO PRN ×2 (10:09→21:32)
[2020-10-16] MEDS: IBUPROFEN 400 MG TABLET (FP) PO PRN ×2 (10:09→21:34)
[2020-10-16] MEDS: MELATONIN 5 MG TABLETS PO SCH (21:31)
[2020-10-16] MEDS: QUEtiapine FUMARATE 100 MG TABLET (FP) PO SCH (21:32)
[2020-10-16] MEDS: THIAMINE HCL 100 MG TABLET (FP) PO SCH (21:32)
[2020-10-16] MEDS: LIDOCAINE PATCH REMOVAL MC SCH (21:32)
[2020-10-17] MEDS: METHOCARBAMOL 500 MG TABLET PO PRN ×2 (06:48→21:10)
[2020-10-17] MEDS: hydrOXYzine PAMOATE 25 MG CAPSULE (FP) PO PRN ×3 (06:48→21:10)
[2020-10-17] MEDS: IBUPROFEN 400 MG TABLET (FP) PO PRN ×2 (06:49→21:10)
[2020-10-17] MEDS: NICOTINE 21 MG/24 HOURS TOPICAL PATCH TD SCH (10:19)
[2020-10-17] MEDS: amLODIPine BESYLATE 10 MG TABLET (FP) PO SCH (10:20)
[2020-10-17] MEDS: PRENATAL VITAMINS W/ FOLIC ACID TABLET (FP) PO SCH (10:20)
[2020-10-17] MEDS: LIDOCAINE 5% TOPICAL PATCH TP SCH (10:20)
[2020-10-17] MEDS: ACETAMINOPHEN 325 MG TABLET (FP) PO PRN (11:50)
[2020-10-17] MEDS: cloNIDine HCL 0.1 MG TABLET PO PRN (21:10)
[2020-10-17] MEDS: MELATONIN 5 MG TABLETS PO SCH (21:10)
[2020-10-17] MEDS: QUEtiapine FUMARATE 100 MG TABLET (FP) PO SCH (21:10)
[2020-10-17] MEDS: THIAMINE HCL 100 MG TABLET (FP) PO SCH (21:10)
[2020-10-17] MEDS: LIDOCAINE PATCH REMOVAL MC SCH (21:19)
[2020-10-18] MEDS: amLODIPine BESYLATE 10 MG TABLET (FP) PO SCH (09:56)
[2020-10-18] MEDS: NICOTINE 21 MG/24 HOURS TOPICAL PATCH TD SCH (09:56)
[2020-10-18] MEDS: LIDOCAINE 5% TOPICAL PATCH TP SCH (09:56)
[2020-10-18] MEDS: PRENATAL VITAMINS W/ FOLIC ACID TABLET (FP) PO SCH (09:56)
[2020-10-18] MEDS: hydrOXYzine PAMOATE 25 MG CAPSULE (FP) PO PRN ×2 (09:58→14:33)
[2020-10-18] MEDS: METHOCARBAMOL 500 MG TABLET PO PRN (09:58)
[2020-10-18] MEDS: IBUPROFEN 400 MG TABLET (FP) PO PRN (09:58)
[2020-10-18] MEDS: ACETAMINOPHEN 325 MG TABLET (FP) PO PRN (14:33)
[2020-10-18] MEDS: LIDOCAINE PATCH REMOVAL MC SCH (21:31)
[2020-10-18] MEDS: MELATONIN 5 MG TABLETS PO SCH (21:31)
[2020-10-18] MEDS: QUEtiapine FUMARATE 100 MG TABLET (FP) PO SCH ×2 (21:32→22:36)
[2020-10-18] MEDS: THIAMINE HCL 100 MG TABLET (FP) PO SCH ×2 (21:32→22:36)
[2020-10-19 07:14] VITALS: PULSE 98; TEMP 97.1
[2020-10-19] MEDS: IBUPROFEN 400 MG TABLET (FP) PO PRN (07:22)
[2020-10-19] MEDS: hydrOXYzine PAMOATE 25 MG CAPSULE (FP) PO PRN (07:22)
[2020-10-19] MEDS: METHOCARBAMOL 500 MG TABLET PO PRN (07:23)
[2020-10-19 09:09] VITALS: BP 147/74
[2020-10-19] MEDS: NICOTINE 21 MG/24 HOURS TOPICAL PATCH TD SCH (09:25)
[2020-10-19] MEDS: LIDOCAINE 5% TOPICAL PATCH TP SCH (09:25)
[2020-10-19] MEDS: amLODIPine BESYLATE 10 MG TABLET (FP) PO SCH (09:25)
[2020-10-19] MEDS: PRENATAL VITAMINS W/ FOLIC ACID TABLET (FP) PO SCH (09:26)
== END 2020-10-19 09:30 | disposition home or self-care (01) | DRG 772 ==
LOC: YASAS 13:13 → Y3E 13:17
PROVIDERS: ADMIT Allergy & Immunology; ATTEND Allergy & Immunology
PROC: HZ42ZZZ Group Counseling for Substance Abuse Treatment, Cognitive-Behavioral (ICD-10-PCS; principal; 2020-10-04)
DX: F10.20 Alcohol dependence, uncomplicated (principal); F14.20 Cocaine dependence, uncomplicated; F12.20 Cannabis dependence, uncomplicated; I10 Essential (primary) hypertension; J45.20 Mild intermittent asthma, uncomplicated; J44.9 Chronic obstructive pulmonary disease, unspecified; M25.511 Pain in right shoulder
CPT/HCPCS: 36415; 80053; 87389; C9803; G0008; J0735; Q2036; U0003

== ENCOUNTER 2021-05-09 14:16 | Inpatient (IN) | payer OTHER ==
[2021-05-09] MEDS ORDERED: CEPHALEXIN MONOHYDRATE 500 MG CAPSULE (UD) PO ONE (15:01)
[2021-05-09] MEDS ORDERED: CLINDAMYCIN 600MG PREMIX IVPB 600 MG/50 ML BAG IVPB ONE ×2 (15:12→15:47)
[2021-05-09] MEDS ORDERED: LORazepam 2 MG TABLET PO ONE (15:13)
[2021-05-09 15:35] LABS: BASO % 0.6 % (0-2.0); EOS % 0.2 % (0-4.5); HEMATOCRIT 48.1 % (35.4-49); HEMOGLOBIN 16.5 GM/dL (11.7-16.9); LYMPH % 7.4 % (8-40); MCH 32.5 pg (25.7-33.7); MCHC 34.2 g/dl (32.0-35.9); MEAN CELL VOLUME 95.1 fl (80-96); MEAN PLT VOLUME 8.9 fl (7.5-11.1); NEUT % 83.8 % (42.8-82.8); PLATELET COUNT 187 10^3/uL (134-434); RBC 5.06 M/mm3 (4.00-5.60); RDW 13.9 % (11.9-15.9); WHITE BLOOD COUNT 7.1 K/mm3 (4.0-10.0)
[2021-05-09] MEDS ORDERED: CEPHALEXIN MONOHYDRATE 500 MG CAPSULE (UD) ONE (15:41)
[2021-05-09] MEDS ORDERED: LORazepam 1 MG TABLET ONE (15:46)
[2021-05-09 16:00] LABS: CALCIUM 8.7 mg/dL (8.5-10.1)
[2021-05-09 16:01] LABS: ALBUMIN 3.4 g/dl (3.4-5.0); BLOOD UREA NITROGEN 9.5 mg/dL (7-18); MAGNESIUM 1.9 mg/dL (1.8-2.4)
[2021-05-09 16:04] LABS: CREATININE 0.9 mg/dL (0.55-1.3)
[2021-05-09 16:06] LABS: TOT PROT 7.2 g/dl (6.4-8.2)
[2021-05-09 16:19] LABS: LACTIC ACID 6.3 mmol/L (0.4-2.0)
[2021-05-09] MEDS ORDERED: SODIUM CHLORIDE 1,000 ML IV STA (17:00)
[2021-05-09 18:03] LABS: EPI CELLS 9 /uL (0-25.1); HYALINE CASTS 0 /uL (0-3.1); PH,URINE 5.5 (5.0-8.0); URINE APPEARANCE CLEAR; URINE BACTERIA 38 /uL (0-1359); URINE BILIRUBIN NEGATIVE (NEGATIVE); URINE COLOR YELLOW; URINE GLUCOSE (UA) NEGATIVE (NEGATIVE); URINE KETONE 1+ (NEGATIVE); URINE LEUK ESTERASE NEGATIVE (NEGATIVE); URINE NITRITE NEGATIVE (NEGATIVE); URINE PROTEIN 2+ (NEGATIVE); URINE RBC 5 /uL (0-23.9); URINE WBC 31 /uL (0-25.8)
[2021-05-09] MEDS ORDERED: POLYETHYLENE GLYCOL (HEALTHYLAX) 3350 17 GM PACKET PO PRN (20:56)
[2021-05-09] MEDS ORDERED: KETOROLAC TROMETHAMINE 15 MG/ML VIAL IVPUSH PRN (20:56)
[2021-05-09] MEDS ORDERED: FOLIC ACID INJECTION - 1 MG, THIAMINE HCL 100 MG in SODIUM CHLORIDE 998.8 ML IVPB ONE (21:10)
[2021-05-09] MEDS ORDERED: MULTIVITAMINS (DAILY MVI) TABLET (FP) PO ONE (21:45)
[2021-05-09] MEDS ORDERED: MULTIVITAMINS (DAILY MVI) TABLET (FP) ONE (22:02)
[2021-05-09] MEDS ORDERED: PANTOPRAZOLE 40 MG TABLET ONE (22:02)
[2021-05-09] MEDS: PANTOPRAZOLE 40 MG TABLET PO SCH (22:20)
[2021-05-10] MEDS ORDERED: LORazepam 1 MG TABLET PO PRN (00:53)
[2021-05-10] MEDS ORDERED: CEPHALEXIN MONOHYDRATE 500 MG CAPSULE (UD) ONE (01:04)
[2021-05-10] MEDS ORDERED: LORazepam 1 MG TABLET ONE (01:06)
[2021-05-10] MEDS: CEPHALEXIN MONOHYDRATE 500 MG CAPSULE (UD) PO SCH ×3 (01:11→12:43)
[2021-05-10] MEDS: LORazepam 1 MG TABLET PO SCH ×4 (01:12→16:15)
[2021-05-10 06:59] VITALS: BMI 31.1
[2021-05-10] MEDS ORDERED: FOLIC ACID 1 MG TABLET (FP) PO SCH (10:00)
[2021-05-10] MEDS ORDERED: THIAMINE HCL 100 MG TABLET (FP) PO SCH (10:00)
[2021-05-10] MEDS ORDERED: MULTIVITAMINS (DAILY MVI) TABLET (FP) PO SCH (10:00)
[2021-05-10] MEDS ORDERED: ENOXAPARIN NA (PORCINE) 40 MG/0.4 ML DISP.SYRIN SQ SCH (10:00)
[2021-05-10 10:19] LABS: INR 0.99 (0.83-1.09); PROTHROMBIN TIME (PATIENT) 11.6 SEC (9.7-13.0)
[2021-05-10 10:21] LABS: ACTIVATED PTT 33.6 SECONDS (25.2-36.5); BASO % 0.6 % (0-2.0); EOS % 1.8 % (0-4.5); HEMATOCRIT 43.1 % (35.4-49); HEMOGLOBIN 14.7 GM/dL (11.7-16.9); LYMPH % 25.2 % (8-40); MCH 32.8 pg (25.7-33.7); MCHC 34.1 g/dl (32.0-35.9); MEAN CELL VOLUME 96.1 fl (80-96); MEAN PLT VOLUME 9.7 fl (7.5-11.1); NEUT % 58.4 % (42.8-82.8); PLATELET COUNT 192 10^3/uL (134-434); RBC 4.49 M/mm3 (4.00-5.60); RDW 13.5 % (11.9-15.9); WHITE BLOOD COUNT 5.6 K/mm3 (4.0-10.0)
[2021-05-10] MEDS: PANTOPRAZOLE 40 MG TABLET PO SCH (10:29)
[2021-05-10] MEDS: BACITRACIN 15 GM TUBE TOPICAL OINTMENT TP SCH ×2 (10:31)
[2021-05-10 10:53] LABS: CALCIUM 8.5 mg/dL (8.5-10.1)
[2021-05-10 10:54] LABS: ALBUMIN 2.8 g/dl (3.4-5.0); BLOOD UREA NITROGEN 10.5 mg/dL (7-18)
[2021-05-10 10:57] LABS: CREATININE 0.7 mg/dL (0.55-1.3)
[2021-05-10 10:58] LABS: BILIRUBIN,TOTAL 1.4 mg/dL (0.2-1); TOT PROT 6.4 g/dl (6.4-8.2)
[2021-05-10] MEDS ORDERED: DOXYCYCLINE MONOHYDRATE 25 MG/5 ML SUSPENSION PO SCH ×2 (11:23→18:00)
[2021-05-10] MEDS ORDERED: DOXYCYCLINE HYCLATE 100 MG CAPSULE PO SCH (11:50)
[2021-05-10 15:15] VITALS: BP 169/99; PULSE 89; TEMP 98.8
[2021-05-11] MEDS ORDERED: LORazepam 1 MG TABLET PO SCH (05:00)
[2021-05-12] MEDS ORDERED: LORazepam 0.5 MG TABLET PO PRN
[2021-05-12] MEDS ORDERED: LORazepam 0.5 MG TABLET PO SCH (05:00)
[2021-05-13] MEDS ORDERED: LORazepam 0.5 MG TABLET PO ONE (05:00)
== END 2021-05-10 16:59 | disposition left against medical advice (07) | DRG 53 ==
LOC: JER 14:16 → JERBED 16:41 → J5S 05-10 05:15
PROVIDERS: ATTEND Internal Medicine
DX: R56.9 Unspecified convulsions (principal); F14.10 Cocaine abuse, uncomplicated; F11.10 Opioid abuse, uncomplicated; I10 Essential (primary) hypertension; J44.9 Chronic obstructive pulmonary disease, unspecified; F31.9 Bipolar disorder, unspecified; F10.20 Alcohol dependence, uncomplicated; T25.222A Burn of second degree of left foot, initial encounter; X08.8XXA Exposure to other specified smoke, fire and flames, initial encounter; Y93.89 Activity, other specified; Y92.89 Other specified places as the place of occurrence of the external cause; Y99.8 Other external cause status; R79.89 Other specified abnormal findings of blood chemistry; F10.230 Alcohol dependence with withdrawal, uncomplicated; Z53.29 Procedure and treatment not carried out because of patient's decision for other reasons
CPT/HCPCS: 36415; 70450-TC; 71046-TC-FY; 72125-TC; 80053; 81003; 82550; 82553; 82607; 82746; 82962; 83605; 83735; 84484; 85025; 85610; 85730; 87040; 87086; 93005; 93010; 99285-25; C9803; T1023-GT; U0003; U0005

== ENCOUNTER 2021-05-19 20:35 | Inpatient (IN) | payer OTHER ==
[2021-05-20] MEDS ORDERED: ONDANSETRON *ODT* 4 MG TABLET SL PRN (02:31)
[2021-05-20] MEDS ORDERED: ACETAMINOPHEN 325 MG TABLET (FP) PO PRN (02:31)
[2021-05-20] MEDS ORDERED: MAG HYDROX/AL HYDROX/SIMETH 30 ML UNIT-DOSE CUP PO PRN (02:31)
[2021-05-20] MEDS ORDERED: MENTHOL/PHENOL 1 EACH UD MM PRN (02:31)
[2021-05-20] MEDS ORDERED: MAGNESIUM HYDROX 2400MG/30ML ORAL SUSPENSION 30 ML CUP PO PRN (02:31)
[2021-05-20] MEDS ORDERED: BISMUTH SUBSALICYLATE 524 MG/30 ML PO PRN (02:31)
[2021-05-20] MEDS ORDERED: MAGNESIUM CITRATE 300 ML BOTTLE PO PRN (02:31)
[2021-05-20 05:26] VITALS: BMI 33.9
[2021-05-20] MEDS: diazePAM 5 MG TABLET PO SCH ×4 (06:06→22:14)
[2021-05-20] MEDS: CLINDAMYCIN HCL 150 MG CAPSULE (FP) PO SCH ×3 (06:07→22:13)
[2021-05-20] MEDS: SILVER SULFADIAZINE 1% TOP CREAM 50 GM JAR TP SCH ×2 (10:04→22:14)
[2021-05-20] MEDS: NICOTINE 21 MG/24 HOURS TOPICAL PATCH TD SCH (10:04)
[2021-05-20] MEDS: PRENATAL VITAMINS W/ FOLIC ACID TABLET (FP) PO SCH (10:04)
[2021-05-20] MEDS: diazePAM 5 MG TABLET PO PRN (12:58)
[2021-05-20 13:27] LABS: HIV INTERPRETATION NEGATIVE (NEGATIVE)
[2021-05-20] MEDS: amLODIPine BESYLATE 10 MG TABLET (FP) PO SCH (14:06)
[2021-05-20] MEDS: HYDROCHLOROTHIAZIDE 12.5 MG CAPSULE (FP) PO SCH (14:06)
[2021-05-20 14:34] LABS: HEMATOCRIT 46.2 % (35.4-49); HEMOGLOBIN 15.2 GM/dL (11.7-16.9); MCH 32.2 pg (25.7-33.7); MEAN CELL VOLUME 97.6 fl (80-96); MEAN PLT VOLUME 9.2 fl (7.5-11.1); PLATELET COUNT 261 10^3/uL (134-434); RBC 4.73 M/mm3 (4.00-5.60); RDW 14.5 % (11.9-15.9); WHITE BLOOD COUNT 5.1 K/mm3 (4.0-10.0)
[2021-05-20 14:39] LABS: CALCIUM 8.9 mg/dL (8.5-10.1)
[2021-05-20 14:40] LABS: BLOOD UREA NITROGEN 9.1 mg/dL (7-18)
[2021-05-20 14:43] LABS: CREATININE 0.8 mg/dL (0.55-1.3)
[2021-05-20 14:44] LABS: BILIRUBIN,TOTAL 0.6 mg/dL (0.2-1); TOT PROT 7.1 g/dl (6.4-8.2)
[2021-05-20 14:48] LABS: ALBUMIN 3.5 g/dl (3.4-5.0)
[2021-05-20] MEDS: NICOTINE 10 MG CARTRIDGE (INHALER) IH PRN (15:26)
[2021-05-20] MEDS: METHOCARBAMOL 500 MG TABLET PO PRN (17:51)
[2021-05-20] MEDS ORDERED: QUEtiapine FUMARATE 100 MG TABLET (FP) PO SCH (22:00)
[2021-05-20] MEDS: MELATONIN 5 MG TABLETS PO SCH (22:14)
[2021-05-20] MEDS: THIAMINE HCL 100 MG TABLET (FP) PO SCH (22:14)
[2021-05-20] MEDS: QUEtiapine FUMARATE 50 MG TABLET PO SCH (22:14)
[2021-05-20] MEDS: IBUPROFEN 400 MG TABLET (FP) PO PRN (22:17)
[2021-05-21] MEDS: diazePAM 5 MG TABLET PO SCH ×3 (05:12→22:30)
[2021-05-21] MEDS: CLINDAMYCIN HCL 150 MG CAPSULE (FP) PO SCH ×3 (05:13→22:29)
[2021-05-21] MEDS: NICOTINE POLACRILEX 2 MG GUM BUC PRN ×4 (05:15→18:08)
[2021-05-21] MEDS: NICOTINE 10 MG CARTRIDGE (INHALER) IH PRN ×5 (05:15→22:30)
[2021-05-21] MEDS: amLODIPine BESYLATE 10 MG TABLET (FP) PO SCH (10:04)
[2021-05-21] MEDS: diazePAM 5 MG TABLET PO PRN ×2 (10:04→18:09)
[2021-05-21] MEDS: HYDROCHLOROTHIAZIDE 12.5 MG CAPSULE (FP) PO SCH (10:04)
[2021-05-21] MEDS: SILVER SULFADIAZINE 1% TOP CREAM 50 GM JAR TP SCH ×2 (10:05→22:30)
[2021-05-21] MEDS: NICOTINE 21 MG/24 HOURS TOPICAL PATCH TD SCH (10:05)
[2021-05-21] MEDS: PRENATAL VITAMINS W/ FOLIC ACID TABLET (FP) PO SCH (10:05)
[2021-05-21] MEDS: METHOCARBAMOL 500 MG TABLET PO PRN (10:06)
[2021-05-21 10:33] LABS: SGPT/ALT 154 U/L (13-61)
[2021-05-21 10:34] LABS: SGOT/AST 171 U/L (15-37)
[2021-05-21] MEDS: IBUPROFEN 400 MG TABLET (FP) PO PRN (18:08)
[2021-05-21] MEDS: QUEtiapine FUMARATE 50 MG TABLET PO SCH (22:29)
[2021-05-21] MEDS: MELATONIN 5 MG TABLETS PO SCH (22:29)
[2021-05-21] MEDS: THIAMINE HCL 100 MG TABLET (FP) PO SCH (22:29)
[2021-05-22] MEDS: diazePAM 5 MG TABLET PO SCH ×2 (06:18→18:31)
[2021-05-22] MEDS: CLINDAMYCIN HCL 150 MG CAPSULE (FP) PO SCH ×3 (06:20→23:05)
[2021-05-22] MEDS: NICOTINE 10 MG CARTRIDGE (INHALER) IH PRN ×4 (07:24→23:12)
[2021-05-22] MEDS: NICOTINE POLACRILEX 2 MG GUM BUC PRN ×3 (07:25→23:10)
[2021-05-22] MEDS: METHOCARBAMOL 500 MG TABLET PO PRN ×2 (10:34→18:37)
[2021-05-22] MEDS: amLODIPine BESYLATE 10 MG TABLET (FP) PO SCH (10:35)
[2021-05-22] MEDS: PRENATAL VITAMINS W/ FOLIC ACID TABLET (FP) PO SCH (10:35)
[2021-05-22] MEDS: HYDROCHLOROTHIAZIDE 12.5 MG CAPSULE (FP) PO SCH (10:35)
[2021-05-22] MEDS: SILVER SULFADIAZINE 1% TOP CREAM 50 GM JAR TP SCH ×2 (10:36→23:03)
[2021-05-22] MEDS: NICOTINE 21 MG/24 HOURS TOPICAL PATCH TD SCH (10:36)
[2021-05-22] MEDS: diazePAM 5 MG TABLET PO PRN (10:37)
[2021-05-22] MEDS: ACETAMINOPHEN 325 MG TABLET (FP) PO PRN ×2 (18:36→23:07)
[2021-05-22] MEDS: QUEtiapine FUMARATE 50 MG TABLET PO SCH (23:05)
[2021-05-22] MEDS: MELATONIN 5 MG TABLETS PO SCH (23:05)
[2021-05-22] MEDS: THIAMINE HCL 100 MG TABLET (FP) PO SCH (23:06)
[2021-05-23] MEDS: CLINDAMYCIN HCL 150 MG CAPSULE (FP) PO SCH (05:50)
[2021-05-23] MEDS: ACETAMINOPHEN 325 MG TABLET (FP) PO PRN (05:52)
[2021-05-23] MEDS ORDERED: diazePAM 5 MG TABLET PO ONE (06:00)
[2021-05-23 09:23] VITALS: BP 145/91; PULSE 92; TEMP 96.9
[2021-05-23] MEDS: NICOTINE 10 MG CARTRIDGE (INHALER) IH PRN (09:46)
[2021-05-23] MEDS: HYDROCHLOROTHIAZIDE 12.5 MG CAPSULE (FP) PO SCH (09:47)
[2021-05-23] MEDS: NICOTINE 21 MG/24 HOURS TOPICAL PATCH TD SCH (09:48)
[2021-05-23] MEDS: PRENATAL VITAMINS W/ FOLIC ACID TABLET (FP) PO SCH (09:48)
[2021-05-23] MEDS: amLODIPine BESYLATE 10 MG TABLET (FP) PO SCH (09:48)
[2021-05-23] MEDS: SILVER SULFADIAZINE 1% TOP CREAM 50 GM JAR TP SCH (09:49)
[2021-05-23] MEDS: NICOTINE POLACRILEX 2 MG GUM BUC PRN (09:49)
== END 2021-05-23 11:04 | disposition other institution (70) | DRG 774 ==
LOC: YASAS 20:35 → Y3N 05-20 03:30
PROVIDERS: ADMIT Allergy & Immunology; ATTEND Allergy & Immunology
PROC: HZ2ZZZZ Detoxification Services for Substance Abuse Treatment (ICD-10-PCS; principal; 2021-05-20)
DX: F10.230 Alcohol dependence with withdrawal, uncomplicated (principal); F14.20 Cocaine dependence, uncomplicated; F12.20 Cannabis dependence, uncomplicated; F17.210 Nicotine dependence, cigarettes, uncomplicated; F19.282 Other psychoactive substance dependence with psychoactive substance-induced sleep disorder; F19.24 Other psychoactive substance dependence with psychoactive substance-induced mood disorder; F31.9 Bipolar disorder, unspecified; F39 Unspecified mood [affective] disorder; I10 Essential (primary) hypertension; J43.0 Unilateral pulmonary emphysema [MacLeod's syndrome]; J45.20 Mild intermittent asthma, uncomplicated; R74.01 Elevation of levels of liver transaminase levels; R74.8 Abnormal levels of other serum enzymes; Z62.810 Personal history of physical and sexual abuse in childhood; T25.221D Burn of second degree of right foot, subsequent encounter; X08.8XXD Exposure to other specified smoke, fire and flames, subsequent encounter
CPT/HCPCS: 36415; 80053; 84450; 84460; 85027; 86780; 87389; C9803; Q0162; U0003; U0005

== ENCOUNTER 2021-05-19 23:22 | Emergency (ER) | payer OTHER ==
[2021-05-19 23:30] VITALS: BP 140/82; PULSE 110; TEMP 97.6; BMI 33.7
[2021-05-20] MEDS ORDERED: DIPHTH,PERTUSS(ACELL),TET 0.5 ML DISP.SYRIN IM ONE ×2 (00:01→00:06)
[2021-05-20] MEDS ORDERED: CLINDAMYCIN HCL 150 MG CAPSULE (FP) PO ONE (00:02)
[2021-05-20] MEDS ORDERED: IBUPROFEN 600 MG TABLET (FP) PO ONE ×2 (00:05)
[2021-05-20] MEDS ORDERED: CLINDAMYCIN HCL 150 MG CAPSULE (FP) ONE ×2 (00:05→00:06)
[2021-05-20] MEDS ORDERED: SILVER SULFADIAZINE 1% TOP CREAM 50 GM JAR TP ONE ×2 (00:05)
== END 2021-05-20 01:17 | disposition home or self-care (01) ==
LOC: JER 23:22
PROC: 3E0234Z Introduction of Serum, Toxoid and Vaccine into Muscle, Percutaneous Approach (ICD-10-PCS; principal; 2021-05-19)
DX: T25.222A Burn of second degree of left foot, initial encounter (principal); F10.20 Alcohol dependence, uncomplicated; X11.8XXA Contact with other hot tap-water, initial encounter
CPT/HCPCS: 90471; 90715; 99283-25

== ENCOUNTER 2021-05-23 11:19 | Inpatient (IN) | payer OTHER ==
[2021-05-23] MEDS ORDERED: MAGNESIUM HYDROX 2400MG/30ML ORAL SUSPENSION 30 ML CUP PO PRN (12:55)
[2021-05-23] MEDS ORDERED: P-EPHED 60MG/TRIPROLIDI 2.5MG TABLET PO PRN (12:55)
[2021-05-23] MEDS ORDERED: LOPERAMIDE HCL 2 MG CAPSULE PO PRN (12:55)
[2021-05-23] MEDS ORDERED: MENTHOL/PHENOL 1 EACH UD MM PRN (12:55)
[2021-05-23] MEDS ORDERED: MAGNESIUM CITRATE 300 ML BOTTLE PO PRN (12:55)
[2021-05-23] MEDS ORDERED: MAG HYDROX/AL HYDROX/SIMETH 30 ML UNIT-DOSE CUP PO PRN (12:55)
[2021-05-23] MEDS ORDERED: guaiFENesin 200 MG/10 ML 10 ML UNIT-DOSE CUPS PO PRN (12:55)
[2021-05-23] MEDS: hydrOXYzine PAMOATE 25 MG CAPSULE (FP) PO PRN ×2 (13:58→21:18)
[2021-05-23] MEDS: IBUPROFEN 400 MG TABLET (FP) PO PRN (13:58)
[2021-05-23] MEDS: NICOTINE 10 MG CARTRIDGE (INHALER) IH PRN ×2 (14:00→19:25)
[2021-05-23] MEDS: METHOCARBAMOL 500 MG TABLET PO PRN (19:26)
[2021-05-23] MEDS: CLINDAMYCIN HCL 150 MG CAPSULE (FP) PO SCH (21:18)
[2021-05-23] MEDS: THIAMINE HCL 100 MG TABLET (FP) PO SCH (21:18)
[2021-05-23] MEDS: MELATONIN 5 MG TABLETS PO SCH (21:19)
[2021-05-23] MEDS: SILVER SULFADIAZINE 1% TOP CREAM 400 GM JAR TP SCH (21:20)
[2021-05-23] MEDS ORDERED: QUEtiapine FUMARATE 100 MG TABLET (FP) PO ONE (22:00)
[2021-05-24] MEDS: CLINDAMYCIN HCL 150 MG CAPSULE (FP) PO SCH ×3 (06:42→21:20)
[2021-05-24] MEDS: METHOCARBAMOL 500 MG TABLET PO PRN ×2 (06:42→19:16)
[2021-05-24] MEDS: NICOTINE 10 MG CARTRIDGE (INHALER) IH PRN ×4 (06:43→19:16)
[2021-05-24] MEDS ORDERED: PT OWN MED DRAWER 7, Y5N ONE (08:33)
[2021-05-24] MEDS ORDERED: NICOTINE 7 MG/24 HOURS TOPICAL PATCH TD SCH (10:00)
[2021-05-24] MEDS: HYDROCHLOROTHIAZIDE 12.5 MG CAPSULE (FP) PO SCH (10:42)
[2021-05-24] MEDS: amLODIPine BESYLATE 10 MG TABLET (FP) PO SCH (10:43)
[2021-05-24] MEDS: PRENATAL VITAMINS W/ FOLIC ACID TABLET (FP) PO SCH (10:43)
[2021-05-24] MEDS: IBUPROFEN 400 MG TABLET (FP) PO PRN (10:45)
[2021-05-24] MEDS: SILVER SULFADIAZINE 1% TOP CREAM 400 GM JAR TP SCH ×2 (10:46→21:22)
[2021-05-24] MEDS ORDERED: JANSSEN COVID-19 VAC,AD26/PF 0.5 ML IM ONE (11:00)
[2021-05-24] MEDS ORDERED: FLU VACC QS2021-22(6MOS UP)/PF 60 MCG/0.5 ML SYRINGE IM ONE (12:00)
[2021-05-24] MEDS: NICOTINE 7 MG/24 HOURS TOPICAL PATCH TD SCH (12:03)
[2021-05-24] MEDS: LIDOCAINE 5% TOPICAL PATCH TP SCH (14:23)
[2021-05-24] MEDS: NICOTINE POLACRILEX 2 MG GUM BUC PRN (19:14)
[2021-05-24] MEDS: hydrOXYzine PAMOATE 25 MG CAPSULE (FP) PO PRN (19:16)
[2021-05-24] MEDS: THIAMINE HCL 100 MG TABLET (FP) PO SCH (21:21)
[2021-05-24] MEDS: QUEtiapine FUMARATE 100 MG TABLET (FP) PO SCH (21:22)
[2021-05-24] MEDS: MELATONIN 5 MG TABLETS PO SCH (21:22)
[2021-05-24] MEDS: LIDOCAINE PATCH REMOVAL MC SCH (21:23)
[2021-05-25] MEDS: CLINDAMYCIN HCL 150 MG CAPSULE (FP) PO SCH ×3 (06:29→21:11)
[2021-05-25] MEDS: METHOCARBAMOL 500 MG TABLET PO PRN ×3 (06:29→21:12)
[2021-05-25] MEDS: ACETAMINOPHEN 325 MG TABLET (FP) PO PRN ×2 (06:29→16:11)
[2021-05-25] MEDS: NICOTINE POLACRILEX 2 MG GUM BUC PRN ×4 (06:30→21:12)
[2021-05-25] MEDS: NICOTINE 10 MG CARTRIDGE (INHALER) IH PRN ×4 (06:30→23:23)
[2021-05-25] MEDS: HYDROCHLOROTHIAZIDE 12.5 MG CAPSULE (FP) PO SCH (10:05)
[2021-05-25] MEDS: hydrOXYzine PAMOATE 25 MG CAPSULE (FP) PO PRN ×2 (10:05→16:11)
[2021-05-25] MEDS: PRENATAL VITAMINS W/ FOLIC ACID TABLET (FP) PO SCH (10:05)
[2021-05-25] MEDS: SILVER SULFADIAZINE 1% TOP CREAM 400 GM JAR TP SCH ×2 (10:06→21:13)
[2021-05-25] MEDS: NICOTINE 7 MG/24 HOURS TOPICAL PATCH TD SCH (10:06)
[2021-05-25] MEDS: LIDOCAINE 5% TOPICAL PATCH TP SCH (10:06)
[2021-05-25] MEDS: amLODIPine BESYLATE 10 MG TABLET (FP) PO SCH (10:06)
[2021-05-25] MEDS: IBUPROFEN 400 MG TABLET (FP) PO PRN (10:07)
[2021-05-25] MEDS: THIAMINE HCL 100 MG TABLET (FP) PO SCH (21:11)
[2021-05-25] MEDS: MELATONIN 5 MG TABLETS PO SCH (21:11)
[2021-05-25] MEDS: QUEtiapine FUMARATE 100 MG TABLET (FP) PO SCH (21:11)
[2021-05-25] MEDS: LIDOCAINE PATCH REMOVAL MC SCH (21:12)
[2021-05-26] MEDS: CLINDAMYCIN HCL 150 MG CAPSULE (FP) PO SCH ×3 (06:34→21:11)
[2021-05-26] MEDS: ACETAMINOPHEN 325 MG TABLET (FP) PO PRN (06:34)
[2021-05-26] MEDS: NICOTINE 10 MG CARTRIDGE (INHALER) IH PRN ×4 (06:34→21:12)
[2021-05-26] MEDS: hydrOXYzine PAMOATE 25 MG CAPSULE (FP) PO PRN ×2 (10:58→21:11)
[2021-05-26] MEDS: amLODIPine BESYLATE 10 MG TABLET (FP) PO SCH (10:58)
[2021-05-26] MEDS: PRENATAL VITAMINS W/ FOLIC ACID TABLET (FP) PO SCH (10:58)
[2021-05-26] MEDS: SILVER SULFADIAZINE 1% TOP CREAM 400 GM JAR TP SCH ×2 (10:58→21:13)
[2021-05-26] MEDS: METHOCARBAMOL 500 MG TABLET PO PRN ×2 (10:58→21:11)
[2021-05-26] MEDS: HYDROCHLOROTHIAZIDE 12.5 MG CAPSULE (FP) PO SCH (10:58)
[2021-05-26] MEDS: LIDOCAINE 5% TOPICAL PATCH TP SCH (10:59)
[2021-05-26] MEDS: NICOTINE 7 MG/24 HOURS TOPICAL PATCH TD SCH (10:59)
[2021-05-26] MEDS: IBUPROFEN 400 MG TABLET (FP) PO PRN ×2 (10:59→21:12)
[2021-05-26] MEDS: MELATONIN 5 MG TABLETS PO SCH (21:10)
[2021-05-26] MEDS: THIAMINE HCL 100 MG TABLET (FP) PO SCH (21:10)
[2021-05-26] MEDS: QUEtiapine FUMARATE 100 MG TABLET (FP) PO SCH (21:11)
[2021-05-26] MEDS: LIDOCAINE PATCH REMOVAL MC SCH (21:12)
[2021-05-27] MEDS: hydrOXYzine PAMOATE 25 MG CAPSULE (FP) PO PRN ×3 (06:42→21:33)
[2021-05-27] MEDS: NICOTINE 10 MG CARTRIDGE (INHALER) IH PRN ×5 (06:42→21:36)
[2021-05-27] MEDS: IBUPROFEN 400 MG TABLET (FP) PO PRN ×3 (06:43→21:34)
[2021-05-27] MEDS: METHOCARBAMOL 500 MG TABLET PO PRN (06:43)
[2021-05-27] MEDS: NICOTINE POLACRILEX 2 MG GUM BUC PRN (08:57)
[2021-05-27] MEDS: PRENATAL VITAMINS W/ FOLIC ACID TABLET (FP) PO SCH (10:33)
[2021-05-27] MEDS: amLODIPine BESYLATE 10 MG TABLET (FP) PO SCH (10:33)
[2021-05-27] MEDS: HYDROCHLOROTHIAZIDE 12.5 MG CAPSULE (FP) PO SCH (10:33)
[2021-05-27] MEDS: LIDOCAINE 5% TOPICAL PATCH TP SCH (10:33)
[2021-05-27] MEDS: SILVER SULFADIAZINE 1% TOP CREAM 400 GM JAR TP SCH ×2 (10:34→21:33)
[2021-05-27] MEDS: NICOTINE 7 MG/24 HOURS TOPICAL PATCH TD SCH (10:34)
[2021-05-27 11:36] LABS: ALBUMIN 3.8 g/dl (3.4-5.0); CALCIUM 9.2 mg/dL (8.5-10.1)
[2021-05-27 11:37] LABS: BLOOD UREA NITROGEN 14.9 mg/dL (7-18)
[2021-05-27 11:40] LABS: CREATININE 0.9 mg/dL (0.55-1.3)
[2021-05-27 11:41] LABS: BILIRUBIN,TOTAL 0.8 mg/dL (0.2-1); TOT PROT 7.7 g/dl (6.4-8.2)
[2021-05-27] MEDS: MELATONIN 5 MG TABLETS PO SCH (21:32)
[2021-05-27] MEDS: THIAMINE HCL 100 MG TABLET (FP) PO SCH (21:32)
[2021-05-27] MEDS: LIDOCAINE PATCH REMOVAL MC SCH (21:33)
[2021-05-27] MEDS: QUEtiapine FUMARATE 100 MG TABLET (FP) PO SCH (21:33)
[2021-05-28] MEDS: METHOCARBAMOL 500 MG TABLET PO PRN ×3 (06:20→21:05)
[2021-05-28] MEDS: hydrOXYzine PAMOATE 25 MG CAPSULE (FP) PO PRN ×3 (06:20→22:46)
[2021-05-28] MEDS: NICOTINE 10 MG CARTRIDGE (INHALER) IH PRN ×4 (06:53→21:05)
[2021-05-28] MEDS: NICOTINE POLACRILEX 2 MG GUM BUC PRN ×4 (08:33→22:44)
[2021-05-28] MEDS: amLODIPine BESYLATE 10 MG TABLET (FP) PO SCH (10:05)
[2021-05-28] MEDS: HYDROCHLOROTHIAZIDE 12.5 MG CAPSULE (FP) PO SCH (10:05)
[2021-05-28] MEDS: PRENATAL VITAMINS W/ FOLIC ACID TABLET (FP) PO SCH (10:05)
[2021-05-28] MEDS: NICOTINE 7 MG/24 HOURS TOPICAL PATCH TD SCH (10:06)
[2021-05-28] MEDS: SILVER SULFADIAZINE 1% TOP CREAM 400 GM JAR TP SCH ×2 (10:07→22:47)
[2021-05-28] MEDS: LIDOCAINE 5% TOPICAL PATCH TP SCH (10:07)
[2021-05-28] MEDS: IBUPROFEN 400 MG TABLET (FP) PO PRN ×2 (15:55→22:46)
[2021-05-28] MEDS: QUEtiapine FUMARATE 100 MG TABLET (FP) PO SCH (21:05)
[2021-05-28] MEDS: THIAMINE HCL 100 MG TABLET (FP) PO SCH (21:05)
[2021-05-28] MEDS: MELATONIN 5 MG TABLETS PO SCH (21:05)
[2021-05-28] MEDS: LIDOCAINE PATCH REMOVAL MC SCH (22:47)
[2021-05-29] MEDS: IBUPROFEN 400 MG TABLET (FP) PO PRN ×3 (06:41→21:35)
[2021-05-29] MEDS: hydrOXYzine PAMOATE 25 MG CAPSULE (FP) PO PRN ×3 (06:43→21:34)
[2021-05-29] MEDS: NICOTINE 10 MG CARTRIDGE (INHALER) IH PRN ×5 (06:43→23:17)
[2021-05-29] MEDS: NICOTINE POLACRILEX 2 MG GUM BUC PRN ×7 (06:43→23:18)
[2021-05-29] MEDS: SILVER SULFADIAZINE 1% TOP CREAM 400 GM JAR TP SCH ×2 (10:22→22:45)
[2021-05-29] MEDS: PRENATAL VITAMINS W/ FOLIC ACID TABLET (FP) PO SCH (10:23)
[2021-05-29] MEDS: METHOCARBAMOL 500 MG TABLET PO PRN ×2 (10:23→21:34)
[2021-05-29] MEDS: amLODIPine BESYLATE 10 MG TABLET (FP) PO SCH (10:23)
[2021-05-29] MEDS: LIDOCAINE 5% TOPICAL PATCH TP SCH (10:23)
[2021-05-29] MEDS: HYDROCHLOROTHIAZIDE 12.5 MG CAPSULE (FP) PO SCH (10:23)
[2021-05-29] MEDS: NICOTINE 7 MG/24 HOURS TOPICAL PATCH TD SCH (10:23)
[2021-05-29] MEDS: MELATONIN 5 MG TABLETS PO SCH (21:34)
[2021-05-29] MEDS: THIAMINE HCL 100 MG TABLET (FP) PO SCH (21:34)
[2021-05-29] MEDS: QUEtiapine FUMARATE 100 MG TABLET (FP) PO SCH (21:34)
[2021-05-29] MEDS: LIDOCAINE PATCH REMOVAL MC SCH (21:35)
[2021-05-30] MEDS: NICOTINE 10 MG CARTRIDGE (INHALER) IH PRN ×4 (06:37→21:19)
[2021-05-30] MEDS: METHOCARBAMOL 500 MG TABLET PO PRN ×3 (06:37→21:17)
[2021-05-30] MEDS: IBUPROFEN 400 MG TABLET (FP) PO PRN ×2 (06:37→13:39)
[2021-05-30] MEDS: NICOTINE POLACRILEX 2 MG GUM BUC PRN ×5 (06:37→21:18)
[2021-05-30] MEDS: hydrOXYzine PAMOATE 25 MG CAPSULE (FP) PO PRN ×3 (06:38→21:17)
[2021-05-30] MEDS: HYDROCHLOROTHIAZIDE 12.5 MG CAPSULE (FP) PO SCH (10:04)
[2021-05-30] MEDS: amLODIPine BESYLATE 10 MG TABLET (FP) PO SCH (10:04)
[2021-05-30] MEDS: PRENATAL VITAMINS W/ FOLIC ACID TABLET (FP) PO SCH (10:04)
[2021-05-30] MEDS: SILVER SULFADIAZINE 1% TOP CREAM 400 GM JAR TP SCH ×2 (10:05→21:18)
[2021-05-30] MEDS: NICOTINE 7 MG/24 HOURS TOPICAL PATCH TD SCH (10:05)
[2021-05-30] MEDS: LIDOCAINE 5% TOPICAL PATCH TP SCH (10:05)
[2021-05-30] MEDS: LIDOCAINE PATCH REMOVAL MC SCH (21:17)
[2021-05-30] MEDS: THIAMINE HCL 100 MG TABLET (FP) PO SCH (21:17)
[2021-05-30] MEDS: MELATONIN 5 MG TABLETS PO SCH (21:17)
[2021-05-30] MEDS: QUEtiapine FUMARATE 100 MG TABLET (FP) PO SCH (21:17)
[2021-05-31] MEDS: hydrOXYzine PAMOATE 25 MG CAPSULE (FP) PO PRN ×3 (06:03→18:02)
[2021-05-31] MEDS: METHOCARBAMOL 500 MG TABLET PO PRN ×3 (06:03→21:25)
[2021-05-31] MEDS: IBUPROFEN 400 MG TABLET (FP) PO PRN ×3 (06:03→21:24)
[2021-05-31] MEDS: NICOTINE POLACRILEX 2 MG GUM BUC PRN ×5 (06:04→21:26)
[2021-05-31] MEDS: NICOTINE 10 MG CARTRIDGE (INHALER) IH PRN ×4 (06:04→23:12)
[2021-05-31] MEDS: NICOTINE 7 MG/24 HOURS TOPICAL PATCH TD SCH (10:28)
[2021-05-31] MEDS: LIDOCAINE 5% TOPICAL PATCH TP SCH (10:28)
[2021-05-31] MEDS: HYDROCHLOROTHIAZIDE 12.5 MG CAPSULE (FP) PO SCH (10:28)
[2021-05-31] MEDS: amLODIPine BESYLATE 10 MG TABLET (FP) PO SCH (10:28)
[2021-05-31] MEDS: PRENATAL VITAMINS W/ FOLIC ACID TABLET (FP) PO SCH (10:28)
[2021-05-31] MEDS: SILVER SULFADIAZINE 1% TOP CREAM 400 GM JAR TP SCH ×2 (10:29→21:26)
[2021-05-31] MEDS: MELATONIN 5 MG TABLETS PO SCH (21:24)
[2021-05-31] MEDS: THIAMINE HCL 100 MG TABLET (FP) PO SCH (21:24)
[2021-05-31] MEDS: QUEtiapine FUMARATE 100 MG TABLET (FP) PO SCH (21:25)
[2021-05-31] MEDS: LIDOCAINE PATCH REMOVAL MC SCH (21:26)
[2021-06-01] MEDS: IBUPROFEN 400 MG TABLET (FP) PO PRN ×3 (06:20→21:13)
[2021-06-01] MEDS: METHOCARBAMOL 500 MG TABLET PO PRN ×2 (06:20→13:09)
[2021-06-01] MEDS: hydrOXYzine PAMOATE 25 MG CAPSULE (FP) PO PRN ×3 (06:20→21:12)
[2021-06-01] MEDS: NICOTINE 10 MG CARTRIDGE (INHALER) IH PRN ×3 (06:20→21:42)
[2021-06-01] MEDS: NICOTINE POLACRILEX 2 MG GUM BUC PRN ×2 (08:23→16:07)
[2021-06-01] MEDS: amLODIPine BESYLATE 10 MG TABLET (FP) PO SCH (10:10)
[2021-06-01] MEDS: HYDROCHLOROTHIAZIDE 12.5 MG CAPSULE (FP) PO SCH (10:10)
[2021-06-01] MEDS: PRENATAL VITAMINS W/ FOLIC ACID TABLET (FP) PO SCH (10:10)
[2021-06-01] MEDS: NICOTINE 7 MG/24 HOURS TOPICAL PATCH TD SCH (10:12)
[2021-06-01] MEDS: LIDOCAINE 5% TOPICAL PATCH TP SCH (10:12)
[2021-06-01] MEDS: SILVER SULFADIAZINE 1% TOP CREAM 400 GM JAR TP SCH ×2 (10:13→21:13)
[2021-06-01] MEDS: QUEtiapine FUMARATE 100 MG TABLET (FP) PO SCH (21:12)
[2021-06-01] MEDS: THIAMINE HCL 100 MG TABLET (FP) PO SCH (21:12)
[2021-06-01] MEDS: MELATONIN 5 MG TABLETS PO SCH (21:12)
[2021-06-01] MEDS: LIDOCAINE PATCH REMOVAL MC SCH (21:13)
[2021-06-02] MEDS: METHOCARBAMOL 500 MG TABLET PO PRN ×2 (05:58→13:13)
[2021-06-02] MEDS: IBUPROFEN 400 MG TABLET (FP) PO PRN ×3 (05:58→21:35)
[2021-06-02] MEDS: hydrOXYzine PAMOATE 25 MG CAPSULE (FP) PO PRN ×3 (05:58→21:35)
[2021-06-02] MEDS: NICOTINE 10 MG CARTRIDGE (INHALER) IH PRN ×3 (05:58→21:36)
[2021-06-02] MEDS: NICOTINE 7 MG/24 HOURS TOPICAL PATCH TD SCH (10:45)
[2021-06-02] MEDS: PRENATAL VITAMINS W/ FOLIC ACID TABLET (FP) PO SCH (10:45)
[2021-06-02] MEDS: HYDROCHLOROTHIAZIDE 12.5 MG CAPSULE (FP) PO SCH (10:45)
[2021-06-02] MEDS: amLODIPine BESYLATE 10 MG TABLET (FP) PO SCH (10:45)
[2021-06-02] MEDS: LIDOCAINE 5% TOPICAL PATCH TP SCH (10:45)
[2021-06-02] MEDS: SILVER SULFADIAZINE 1% TOP CREAM 400 GM JAR TP SCH ×2 (10:47→21:37)
[2021-06-02] MEDS: NICOTINE POLACRILEX 2 MG GUM BUC PRN ×2 (10:47→18:00)
[2021-06-02 17:24] LABS: PH,URINE 6.5 (5.0-8.0); URINE APPEARANCE CLEAR; URINE BILIRUBIN NEGATIVE (NEGATIVE); URINE COLOR YELLOW; URINE GLUCOSE (UA) NEGATIVE (NEGATIVE); URINE KETONE NEGATIVE (NEGATIVE); URINE LEUK ESTERASE NEGATIVE (NEGATIVE); URINE NITRITE NEGATIVE (NEGATIVE); URINE PROTEIN NEGATIVE (NEGATIVE); URINE UROBILINOGEN 0.2 mg/dL (0.2-1.0)
[2021-06-02] MEDS: MELATONIN 5 MG TABLETS PO SCH (21:35)
[2021-06-02] MEDS: THIAMINE HCL 100 MG TABLET (FP) PO SCH (21:35)
[2021-06-02] MEDS: QUEtiapine FUMARATE 100 MG TABLET (FP) PO SCH (21:35)
[2021-06-02] MEDS: LIDOCAINE PATCH REMOVAL MC SCH (21:37)
[2021-06-03] MEDS: hydrOXYzine PAMOATE 25 MG CAPSULE (FP) PO PRN ×3 (06:38→21:05)
[2021-06-03] MEDS: METHOCARBAMOL 500 MG TABLET PO PRN ×3 (06:38→21:06)
[2021-06-03] MEDS: NICOTINE 10 MG CARTRIDGE (INHALER) IH PRN ×4 (06:38→21:07)
[2021-06-03] MEDS: IBUPROFEN 400 MG TABLET (FP) PO PRN ×3 (06:38→21:06)
[2021-06-03] MEDS: HYDROCHLOROTHIAZIDE 12.5 MG CAPSULE (FP) PO SCH (09:59)
[2021-06-03] MEDS: amLODIPine BESYLATE 10 MG TABLET (FP) PO SCH (09:59)
[2021-06-03] MEDS: NICOTINE 7 MG/24 HOURS TOPICAL PATCH TD SCH (09:59)
[2021-06-03] MEDS: PRENATAL VITAMINS W/ FOLIC ACID TABLET (FP) PO SCH (09:59)
[2021-06-03] MEDS: LIDOCAINE 5% TOPICAL PATCH TP SCH (10:00)
[2021-06-03] MEDS: NICOTINE POLACRILEX 2 MG GUM BUC PRN ×3 (10:00→16:35)
[2021-06-03] MEDS: SILVER SULFADIAZINE 1% TOP CREAM 400 GM JAR TP SCH ×2 (10:00→21:08)
[2021-06-03] MEDS: MELATONIN 5 MG TABLETS PO SCH (21:05)
[2021-06-03] MEDS: QUEtiapine FUMARATE 100 MG TABLET (FP) PO SCH (21:05)
[2021-06-03] MEDS: THIAMINE HCL 100 MG TABLET (FP) PO SCH (21:06)
[2021-06-03] MEDS: LIDOCAINE PATCH REMOVAL MC SCH (21:08)
[2021-06-04] MEDS: IBUPROFEN 400 MG TABLET (FP) PO PRN ×3 (07:27→21:34)
[2021-06-04] MEDS: NICOTINE 10 MG CARTRIDGE (INHALER) IH PRN ×4 (07:28→21:35)
[2021-06-04] MEDS: NICOTINE POLACRILEX 2 MG GUM BUC PRN ×2 (07:28→13:41)
[2021-06-04] MEDS: hydrOXYzine PAMOATE 25 MG CAPSULE (FP) PO PRN ×3 (07:28→21:34)
[2021-06-04] MEDS: METHOCARBAMOL 500 MG TABLET PO PRN ×3 (07:28→21:34)
[2021-06-04] MEDS: PRENATAL VITAMINS W/ FOLIC ACID TABLET (FP) PO SCH (10:47)
[2021-06-04] MEDS: HYDROCHLOROTHIAZIDE 12.5 MG CAPSULE (FP) PO SCH (10:47)
[2021-06-04] MEDS: amLODIPine BESYLATE 10 MG TABLET (FP) PO SCH (10:47)
[2021-06-04] MEDS: LIDOCAINE 5% TOPICAL PATCH TP SCH (10:47)
[2021-06-04] MEDS: SILVER SULFADIAZINE 1% TOP CREAM 400 GM JAR TP SCH ×2 (10:48→21:35)
[2021-06-04] MEDS: NICOTINE 7 MG/24 HOURS TOPICAL PATCH TD SCH (10:49)
[2021-06-04 13:47] LABS: ALBUMIN 3.8 g/dl (3.4-5.0); BILIRUBIN,TOTAL 0.5 mg/dL (0.2-1); BLOOD UREA NITROGEN 13.2 mg/dL (7-18); CALCIUM 9.2 mg/dL (8.5-10.1); CREATININE 0.9 mg/dL (0.55-1.3); TOT PROT 7.5 g/dl (6.4-8.2)
[2021-06-04] MEDS: QUEtiapine FUMARATE 100 MG TABLET (FP) PO SCH (21:34)
[2021-06-04] MEDS: MELATONIN 5 MG TABLETS PO SCH (21:34)
[2021-06-04] MEDS: THIAMINE HCL 100 MG TABLET (FP) PO SCH (21:34)
[2021-06-04] MEDS: LIDOCAINE PATCH REMOVAL MC SCH (21:36)
[2021-06-05] MEDS: IBUPROFEN 400 MG TABLET (FP) PO PRN ×3 (06:48→21:05)
[2021-06-05] MEDS: hydrOXYzine PAMOATE 25 MG CAPSULE (FP) PO PRN ×3 (06:48→21:04)
[2021-06-05] MEDS: NICOTINE POLACRILEX 2 MG GUM BUC PRN ×5 (06:48→21:05)
[2021-06-05] MEDS: METHOCARBAMOL 500 MG TABLET PO PRN ×3 (06:48→21:04)
[2021-06-05] MEDS: NICOTINE 10 MG CARTRIDGE (INHALER) IH PRN ×3 (06:48→18:12)
[2021-06-05] MEDS: HYDROCHLOROTHIAZIDE 12.5 MG CAPSULE (FP) PO SCH (10:15)
[2021-06-05] MEDS: amLODIPine BESYLATE 10 MG TABLET (FP) PO SCH (10:15)
[2021-06-05] MEDS: SILVER SULFADIAZINE 1% TOP CREAM 400 GM JAR TP SCH ×2 (10:15→21:06)
[2021-06-05] MEDS: LIDOCAINE 5% TOPICAL PATCH TP SCH (10:15)
[2021-06-05] MEDS: NICOTINE 7 MG/24 HOURS TOPICAL PATCH TD SCH (10:16)
[2021-06-05] MEDS: PRENATAL VITAMINS W/ FOLIC ACID TABLET (FP) PO SCH (10:48)
[2021-06-05] MEDS: MELATONIN 5 MG TABLETS PO SCH (21:03)
[2021-06-05] MEDS: QUEtiapine FUMARATE 100 MG TABLET (FP) PO SCH (21:04)
[2021-06-05] MEDS: THIAMINE HCL 100 MG TABLET (FP) PO SCH (21:04)
[2021-06-05] MEDS: LIDOCAINE PATCH REMOVAL MC SCH (21:05)
[2021-06-06] MEDS: IBUPROFEN 400 MG TABLET (FP) PO PRN ×3 (06:50→21:25)
[2021-06-06] MEDS: METHOCARBAMOL 500 MG TABLET PO PRN ×3 (06:50→21:25)
[2021-06-06] MEDS: hydrOXYzine PAMOATE 25 MG CAPSULE (FP) PO PRN ×3 (06:50→21:25)
[2021-06-06] MEDS: NICOTINE 10 MG CARTRIDGE (INHALER) IH PRN ×3 (06:51→21:26)
[2021-06-06] MEDS: NICOTINE POLACRILEX 2 MG GUM BUC PRN ×3 (08:56→16:39)
[2021-06-06] MEDS: NICOTINE 7 MG/24 HOURS TOPICAL PATCH TD SCH (10:36)
[2021-06-06] MEDS: PRENATAL VITAMINS W/ FOLIC ACID TABLET (FP) PO SCH (10:36)
[2021-06-06] MEDS: HYDROCHLOROTHIAZIDE 12.5 MG CAPSULE (FP) PO SCH (10:36)
[2021-06-06] MEDS: SILVER SULFADIAZINE 1% TOP CREAM 400 GM JAR TP SCH ×2 (10:36→21:52)
[2021-06-06] MEDS: LIDOCAINE 5% TOPICAL PATCH TP SCH (10:36)
[2021-06-06] MEDS: amLODIPine BESYLATE 10 MG TABLET (FP) PO SCH (10:36)
[2021-06-06] MEDS: THIAMINE HCL 100 MG TABLET (FP) PO SCH (21:25)
[2021-06-06] MEDS: QUEtiapine FUMARATE 100 MG TABLET (FP) PO SCH (21:25)
[2021-06-06] MEDS: MELATONIN 5 MG TABLETS PO SCH (21:25)
[2021-06-06] MEDS: LIDOCAINE PATCH REMOVAL MC SCH (22:39)
[2021-06-07] MEDS: METHOCARBAMOL 500 MG TABLET PO PRN (06:16)
[2021-06-07] MEDS: NICOTINE 10 MG CARTRIDGE (INHALER) IH PRN ×2 (06:17→09:53)
[2021-06-07] MEDS: IBUPROFEN 400 MG TABLET (FP) PO PRN (06:17)
[2021-06-07] MEDS: hydrOXYzine PAMOATE 25 MG CAPSULE (FP) PO PRN (06:17)
[2021-06-07 07:01] VITALS: BP 119/78; PULSE 112; TEMP 98.1
[2021-06-07] MEDS: PRENATAL VITAMINS W/ FOLIC ACID TABLET (FP) PO SCH (09:50)
[2021-06-07] MEDS: amLODIPine BESYLATE 10 MG TABLET (FP) PO SCH (09:51)
[2021-06-07] MEDS: LIDOCAINE 5% TOPICAL PATCH TP SCH (09:51)
[2021-06-07] MEDS: HYDROCHLOROTHIAZIDE 12.5 MG CAPSULE (FP) PO SCH (09:51)
[2021-06-07] MEDS: NICOTINE 7 MG/24 HOURS TOPICAL PATCH TD SCH (09:55)
[2021-06-07] MEDS: SILVER SULFADIAZINE 1% TOP CREAM 400 GM JAR TP SCH (09:55)
== END 2021-06-07 10:00 | disposition home or self-care (01) | DRG 772 ==
LOC: YASAS 11:19 → Y3W 11:20
PROVIDERS: ADMIT Allergy & Immunology; ATTEND Allergy & Immunology
PROC: HZ42ZZZ Group Counseling for Substance Abuse Treatment, Cognitive-Behavioral (ICD-10-PCS; principal; 2021-05-23)
DX: F10.20 Alcohol dependence, uncomplicated (principal); F10.982 Alcohol use, unspecified with alcohol-induced sleep disorder; F14.20 Cocaine dependence, uncomplicated; F12.20 Cannabis dependence, uncomplicated; F17.210 Nicotine dependence, cigarettes, uncomplicated; F41.9 Anxiety disorder, unspecified; F19.24 Other psychoactive substance dependence with psychoactive substance-induced mood disorder; I10 Essential (primary) hypertension; R74.01 Elevation of levels of liver transaminase levels
CPT/HCPCS: 0031A; 36415; 80053; 81003; 90686; 91303; G0008